=== PATIENT | female | born 1955 | race Hispanic/Latino ===

== ENCOUNTER 2020-03-14 10:53 | Emergency (ER) | payer OTHER ==
[~2020-03-14] VITALS: Ht 157.5 cm; Wt 81.6 kg
[~2020-03-14 10:53] MED LIST: BENTYL10 MG PO; LOSARTAN POTASS25 MG PO; PANTOPRAZOLE SO40 MG PO; SIMVASTATIN20 MG PO; ZOFRAN ODT4 MG SL
--- NOTE | 2020-03-14 11:56 | NUR ---
Used cultural link industrial renderer id#[id number] for triage information
[2020-03-14] MEDS ORDERED: ONDANSETRON HCL INJ 2MG/ML 2ML 2 MG/ML VIAL IV ONE (12:15)
[2020-03-14] MEDS ORDERED: MORPHINE SULFATE 2 MG/ML SYR 1ML IV ONE (12:17)
[2020-03-14] MEDS ORDERED: MORPHINE SULFATE INJ 4 MG/ML INJ 1ML ONE (12:29)
[2020-03-14] MEDS ORDERED: ONDANSETRON HCL INJ 2MG/ML 2ML 2 MG/ML VIAL ONE (12:29)
[2020-03-14] MEDS ORDERED: SODIUM CHLORIDE 0.9% 1000ML 1,000 ML ONE (14:06)
[2020-03-14] MEDS ORDERED: INSULIN REGULAR, HUMAN 100 UNIT/1 ML 3ML VIAL ONE (14:07)
--- NOTE | 2020-03-14 17:18 | Diagnostic Imaging Report ---
ADDENDUM #1 ADDENDUM: A 4 mm solid nodule in the left lower lobe, which does not require follow-up in a low risk patient. If the patient has a clinical risk factor for malignancy, an optional follow-up chest CT may be considered in 12 months. Signed by: Dr. Julienne Anderson MD on 03/14/2020 5:26 PM ORIGINAL REPORT EXAM: CT Abdomen and Pelvis without contrast INDICATION: Abdominal pain, diarrhea, body aches, nausea/vomiting. COMPARISON: Report from CT abdomen/pelvis dated 03/28/2017, although the images are not available for review at the time of this dictation. TECHNIQUE: Abdomen and pelvis were scanned utilizing a multidetector helical scanner from the lung base to the pubic symphysis without administration of IV contrast. Coronal and sagittal reformations were obtained. Routine protocol was performed. IV CONTRAST: None. ORAL CONTRAST: None. COMPLICATIONS: None RADIATION DOSE: Total DLP 1218 mGy*cm Estimated effective dose: (DLP x 0.015 x size factor) mSv CTDIvol has been reviewed. It is below the limits set by the Radiation Protocol Committee (RPC). FINDINGS: LINES and TUBES: None. LOWER THORAX: There is a 4 mm solid nodule in the left lower lobe on series 2, image 15. Mild patchy dependent opacities, likely atelectasis. Extensive multivessel coronary atherosclerosis. HEPATOBILIARY: Diffuse hepatic steatosis. No evidence of focal lesion. No biliary ductal dilation. GALLBLADDER: Cholelithiasis without evidence of cholecystitis. SPLEEN: No splenomegaly. PANCREAS: No focal masses or ductal dilatation. ADRENALS: No adrenal nodules KIDNEYS/URETERS: No evidence of hydronephrosis, solid mass, or stone. GI TRACT: The colon appears decompressed and possibly mildly thick-walled. No surrounding inflammatory changes. No evidence of wall thickening or distension. Appendix is normal. PELVIC ORGANS/BLADDER: Unremarkable. LYMPH NODES: No lymphadenopathy. VESSELS: There is moderate to severe atherosclerotic disease in the aorta and major arterial branches. PERITONEUM / RETROPERITONEUM: No free air or fluid. BONES AND SOFT TISSUES: Unremarkable. CONCLUSION: Possible mild wall thickening within the colon may reflect decompression or mild infectious or inflammatory colitis in the appropriate clinical setting. Cholelithiasis without evidence of cholecystitis. Diffuse hepatic steatosis. Extensive multivessel coronary atherosclerosis. Signed by: Dr. Julienne Anderson MD on 03/14/2020 5:15 PM
[2020-03-14 17:27] VITALS: BP 163/68
--- NOTE | 2020-03-14 17:36 | Emergency Department Note ---
History of Present Illnes History of Present Illness Chief Complaint: Abdominal Complaints History of Present Illness This is a 64 year old female Chief Complaint Comment Reports that since she got off work last night she has had body aches with abd pain and n/v/d. States that her blood sugar was 400 this morning at 0900 . Historian: Patient Onset (how long ago): day(s) (2) Location: generalized Quality: cramping Radiation: Denies non-radiation, Denies back, Denies neck, Denies extremity, Denies abdomen, Denies periumbilical, Denies flank, Denies proximal, Denies distal, Denies other Severity: moderate Onset quality: gradual Duration (how long): day(s) (2) Timing of current episode: constant Progression: waxing and waning Chronicity: new Relieving factors: none Exacerbating factors: none Associated symptoms: Reports nausea/vomiting Treatments prior to arrival: none Past Medical/Family History Physician Review I have reviewed the patient's past medical and family history. Any updates have been documented here. Past Medical History Recent Fever: No Clinical Suspicion of Infectio: No New/Unexplained Change in Ment: No Past Medical History: Hypertension, Diabetes, Hyperlipedemia Other Medical History: HIGH CHOLESTEROL Past Surgical History: Tubal Ligation Other Surgery: TUBAL Social History Smoking Cessation: Never Smoker Counseling Performed: No Alcohol Use: None Any Illegal Drug Use: No TB Exposure/Symptoms: No Physically hurt or threatened: No Family History Family history of heart diseas: Yes Other Last Tetanus: UNK Any Pre-Existing Lines (PICC,: No Is patient up to date on immun: Yes Last Flu: none Last Pneumovax: none Review of Systems Review of Systems Constitutional: Reports no symptoms EENTM: Reports no symptoms Cardiovascular: Reports no symptoms Respiratory: Reports no symptoms Gastrointestinal: Reports as per HPI Genitourinary: Reports no symptoms Musculoskeletal: Reports no symptoms Integumentary: Reports no symptoms Neurological: Reports no symptoms Psychological: Reports no symptoms Endocrine: Reports no symptoms Hematological/Lymphatic: Reports no symptoms Physical Exam Related Data Allergies: Coded Allergies: No Known Allergies (Unverified , 03/24/17) Triage Vital Signs Vital Signs Date Time Temp Pulse Resp B/P (MAP) Pulse Ox O2 Delivery O2 Flow Rate FiO2 03/14/20 11:56 99.8 98 12 168/87 98 Vital signs reviewed: Yes Physical Exam CONSTITUTIONAL Constitutional: Present well-developed, Present well-nourished HENT HENT: Present normocephalic, Present atraumatic, Present oropharynx clear /moist, Present nose normal HENT L/R: Present left ext ear normal, Present right ext ear normal EYES Eyes: Reports PERRL, Reports conjunctivae normal NECK Neck: Present ROM normal PULMONARY Pulmonary: Present effort normal, Present breath sounds normal CARDIOVASCULAR Cardiovascular: Present regular rhythm, Present heart sounds normal, Present capillary refill normal, Present normal rate GASTROINTESTINAL Abdominal: Present soft, Present bowel sounds normal, Present tender (periumbilical) GENITOURINARY Genitourinary: Present exam deferred SKIN Skin: Present warm, Present dry MUSCULOSKELETAL Musculoskeletal: Present ROM normal NEUROLOGICAL Neurological: Present alert, Present oriented x 3, Present no gross motor or sensory deficits PSYCHOLOGICAL Psychological: Present mood/affect normal, Present judgement normal Results Laboratory Lab results reviewed: Yes Imaging Imaging results reviewed: Yes Assessment & Plan Medical Decision Making MDM colitis obstruction galll stones kidney stones Reassessment Reassessment time: 17:34 Reassessment better Assessment & Plan Final Impression: (1) Abdominal pain, generalized (2) Gall stones (3) Hyperglycemia (4) Vomiting and diarrhea Depart Disposition: HOME, SELF-CARE Last Vital Signs Date Time Temp Pulse Resp B/P (MAP) Pulse Ox O2 Delivery O2 Flow Rate FiO2 03/14/20 16:32 84 20 158/70 98 03/14/20 11:56 99.8 Home Meds Reported Medications Dicyclomine Hcl (BENTYL) 10 Mg Capsule, 20 MG PO Q6H PRN for ABDOMINAL PAIN, CAP 03/28/17 Pantoprazole Sodium* (PROTONIX) 40 Mg Tablet.dr, 40 MG PO DAILY, TAB 03/28/17 Ondansetron (ZOFRAN ODT) 4 Mg Tab.rapdis, 4 MG SL Q6H PRN for NAUSEA, TAB 03/28/17 Losartan Potassium (LOSARTAN POTASSIUM) 25 Mg Tablet, 100 MG PO BID 03/28/17 Simvastatin (SIMVASTATIN) 20 Mg Tablet, 20 MG PO 2100, EA 03/28/17 Medications in the ED Ondansetron HCl 4 mg NOW ONCE IV Last administered on 03/14/20at 12:25; Admin Dose 4 MG; Start 03/14/20 at 12:15; Stop 03/14/20 at 12:20; Status DC Morphine Sulfate 2 mg NOW ONCE IV Last administered on 03/14/20at 12:25; Admin Dose 2 MG; Start 03/14/20 at 12:17; Stop 03/14/20 at 12:20; Status DC Ondansetron HCl 4 mg STK-MED ONCE .ROUTE ; Start 03/14/20 at 12:29; Stop 03/14/20 at 12:24; Status DC Morphine Sulfate 4 mg STK-MED ONCE .ROUTE ; Start 03/14/20 at 12:29; Stop 03/14/20 at 12:24; Status DC Sodium Chloride 1,000 ml @ ud STK-MED ONCE .ROUTE ; Start 03/14/20 at 14:06; Stop 03/14/20 at 14:03; Status DC Insulin Human Regular 100 unit STK-MED ONCE .ROUTE ; Start 03/14/20 at 14:07; Stop 03/14/20 at 14:03; Status DC NUVIA CURTIS MD Mar 14, 2020 17:36
--- NOTE | 2020-03-14 17:55 | NUR ---
Used cultural link commercial driver id # [id number] Harper for discharge instructions.
[2020-03-15] MEDS ORDERED: TYLENOL WITH C1 EACH PO (17:56)
[2020-03-15] MEDS ORDERED: ZOFRAN4 MG SL (17:56)
== END 2020-03-14 17:55 | disposition home or self-care (01) ==
LOC: FSED 10:53
DX: R10.84 Generalized abdominal pain (principal); R11.2 Nausea with vomiting, unspecified; R19.7 Diarrhea, unspecified; K80.80 Other cholelithiasis without obstruction; E11.65 Type 2 diabetes mellitus with hyperglycemia
CPT/HCPCS: 74176; 80048; 80076; 81003; 85025; 96374; 96375; 99284; J1817; J2270; J2405; J7030

== ENCOUNTER 2020-03-15 11:19 | Emergency (ER) | payer OTHER ==
[~2020-03-15] VITALS: Ht 152.4 cm; Wt 118.8 kg
--- NOTE | 2020-03-15 12:00 | Emergency Department Note ---
History of Present Illnes History of Present Illness Chief Complaint: COVID PUI History of Present Illness This is a 64 year old female c/o diffuse abd pain for few days, was here yesterday dx with colitis, dc/ home now coming back with same abd pain. All her family members have covid 19 per nursing reports but the patient denies it Past Medical History Hypertension, Diabetes, Hyperlipedemia Other Medical History HIGH CHOLESTEROL Past Surgical History: Tubal Ligation Other Surgery TUBAL . Arrival Mode: Car History limited by: language barrier [employer] Required: Yes Onset (how long ago): day(s) Onset quality: gradual Duration (how long): hour(s) Progression: waxing and waning Relieving factors: none Exacerbating factors: none Previous service: medications given Past Medical/Family History Physician Review I have reviewed the patient's past medical and family history. Any updates have been documented here. Past Medical History Past Medical History: Hypertension, Diabetes, Hyperlipedemia Other Medical History: HIGH CHOLESTEROL Past Surgical History: Tubal Ligation Other Surgery: TUBAL Social History Smoking Cessation: Unknown if ever smoked Alcohol Use: None Any Illegal Drug Use: No TB Exposure/Symptoms: No Family History Family history of heart diseas: No Other Last Tetanus: UNK Any Pre-Existing Lines (PICC,: No Review of Systems Review of Systems Constitutional: Reports no symptoms EENTM: Reports no symptoms Cardiovascular: Reports no symptoms Respiratory: Reports no symptoms Gastrointestinal: Reports as per HPI, Reports abdominal pain, Reports nausea Genitourinary: Reports no symptoms Musculoskeletal: Reports no symptoms Integumentary: Reports no symptoms Neurological: Reports no symptoms Psychological: Reports no symptoms Endocrine: Reports no symptoms Hematological/Lymphatic: Reports no symptoms Physical Exam Related Data Allergies: Coded Allergies: No Known Allergies (Unverified , 03/24/17) Physical Exam CONSTITUTIONAL Constitutional: Present well-developed, Present well-nourished, Present obese, Present distressed HENT HENT: Present normocephalic, Present atraumatic, Present oropharynx sonja r/moist, Present nose normal HENT L/R: Present left ext ear normal, Present right ext ear normal EYES Eyes: Reports PERRL, Reports conjunctivae normal NECK Neck: Present ROM normal PULMONARY Pulmonary: Present effort normal, Present breath sounds normal CARDIOVASCULAR Cardiovascular: Present regular rhythm, Present heart sounds normal, Present capillary refill normal, Present normal rate GASTROINTESTINAL Abdominal: Present soft, Present nontender, Present bowel sounds normal GENITOURINARY Genitourinary: Present exam deferred SKIN Skin: Present warm, Present dry MUSCULOSKELETAL Musculoskeletal: Present ROM normal NEUROLOGICAL Neurological: Present alert, Present oriented x 3, Present no gross motor or sensory deficits PSYCHOLOGICAL Psychological: Present mood/affect normal, Present judgement normal Results Laboratory Lab results reviewed: Yes Laboratory comments glucose high 208, k 3.3, UA concentrated, WBC 14 Assessment & Plan Medical Decision Making MDM colitis, covid19 Reassessment Reassessment time: 17:50 Reassessment comfortable Assessment & Plan Final Impression: (1) Colitis (2) Abdominal pain, generalized Depart Disposition: HOME, SELF-jail Meds Active Scripts Ondansetron Hcl* (ZOFRAN*) 4 Mg Tablet, 4 MG SL Q6H PRN for NAUSEA, #14 MG 0 Refills Prov:LORETA UBSH MD 03/15/20 Acetaminophen With Codeine (TYLENOL WITH CODEINE #3 TABLET) 1 Each Tablet, 300 MG PO Q4HR PRN for ABDOMINAL PAIN, #45 TAB Prov:LORETA BUSH MD 03/15/20 Reported Medications Dicyclomine Hcl (BENTYL) 10 Mg Capsule, 20 MG PO Q6H PRN for ABDOMINAL PAIN, CAP 03/28/17 Pantoprazole Sodium* (PROTONIX) 40 Mg Tablet.dr, 40 MG PO DAILY, TAB 03/28/17 Ondansetron (ZOFRAN ODT) 4 Mg Tab.rapdis, 4 MG SL Q6H PRN for NAUSEA, TAB 03/28/17 Losartan Potassium (LOSARTAN POTASSIUM) 25 Mg Tablet, 100 MG PO BID 03/28/17 Simvastatin (SIMVASTATIN) 20 Mg Tablet, 20 MG PO 2100, EA 03/28/17 Physician Attestation Provider Attestation BP looks better, pt is much more comfortable, taking PO well, can be safely d/shyam LORETA BUSH MD Mar 15, 2020 11:59
[2020-03-15] MEDS ORDERED: HYDRALAZINE HCL 20 MG/ML VIAL IV STA (12:26)
[2020-03-15] MEDS ORDERED: SODIUM CHLORIDE 0.9% 500ML 500 ML IV STA ×2 (12:26→13:55)
[2020-03-15] MEDS ORDERED: FAMOTIDINE 20 MG/2 ML VIAL IV ONE ×2 (12:30→13:32)
[2020-03-15] MEDS ORDERED: PROMETHAZINE 12.5MG/ NACL 0.9% 12.5 MG/50 ML BAG IV ONE (12:30)
[2020-03-15] MEDS ORDERED: HYDRALAZINE HCL 20 MG/ML VIAL ONE (13:31)
[2020-03-15] MEDS ORDERED: SODIUM CHLORIDE 0.9% 1000ML 1,000 ML ONE (13:32)
[2020-03-15] MEDS ORDERED: PROMETHAZINE HCL (IM) 25 MG/ML VIAL ONE (13:32)
[2020-03-15] MEDS ORDERED: CLONIDINE HCL 0.1 MG TAB ONE (15:57)
[2020-03-15] MEDS ORDERED: HYDROCODONE/APAP 5MG-325MG TAB PO ONE (16:00)
[2020-03-15] MEDS ORDERED: CLONIDINE HCL 0.2 MG TAB PO ONE (16:00)
[2020-03-15] MEDS ORDERED: TYLENOL WITH C1 EACH PO (17:56)
[2020-03-15] MEDS ORDERED: ZOFRAN4 MG SL (17:56)
== END 2020-03-15 17:49 | disposition home or self-care (01) ==
LOC: FSED 13:10
DX: K52.9 Noninfective gastroenteritis and colitis, unspecified (principal); R10.84 Generalized abdominal pain; I10 Essential (primary) hypertension; E11.9 Type 2 diabetes mellitus without complications; E78.5 Hyperlipidemia, unspecified; Z11.59 Encounter for screening for other viral diseases
CPT/HCPCS: 80053; 81003; 85025; 87635; 96374; 96375; 99283; J0360; J2550; J7030; J7040

== ENCOUNTER 2020-03-17 19:10 | Inpatient (IN) | payer OTHER ==
[~2020-03-17] VITALS: Ht 157.5 cm; Wt 118.8 kg
[~2020-03-17 19:10] MED LIST changes: +TYLENOL WITH C1 EACH PO; +ZOFRAN4 MG SL
--- NOTE | 2020-03-17 19:18 | Emergency Department Note ---
History of Present Illnes History of Present Illness Chief Complaint: vomiting and low blood sugar History of Present Illness This is a 64 year old female with history of poorly controlled hypertension, hyperlipidemia, and insulin-dependent diabetes, who presents to the ED for a third time this week complaining of vomiting, upper abdominal pain and chest pain. Patient was initially seen on 03/14/20 with body aches, abdominal pain, nausea and vomiting. She had abdominal CAT scan that showed gallstones, and possible colitis versus decompression of the bowel. Patient was discharged with Bentyl, Protonix, and Zofran. Patient presented on 03/15/20 complaining of abdominal pain and vomiting, numbness treated from the ED and released. Patient presents tonight with complaints of upper abdominal and chest pain, and vom iting. She does not patient does not appear to be vomiting, she seems to be coughing and forcing herself to spit out phlegm. She may have some dry heaving. She complains of chest tightness and has no known history of coronary artery disease. She has been an insulin-dependent diabetic for a number of years. Though she has no known history of heart disease, however the CT of her abdomen and pelvis done on 03/14/2020 did show "extensive multivessel coronary atherosclerosis." Historian: Patient (poor historian) Arrival Mode: Car History limited by: language barrier Manager Security And Safety Required: Yes (Wing Dumont RN translated) Onset (how long ago): day(s) (3) Location: epigastric, substernal Quality: dry heaving Severity: moderate Onset quality: gradual Duration (how long): day(s) (3) Timing of current episode: constant Progression: waxing and waning Chronicity: new Context: Denies recent travel, Denies trauma/injury Relieving factors: none Exacerbating factors: none Associated symptoms: Reports chest pain, Reports cough (phlegm production) Treatments prior to arrival: other (unclear what patient took ) Risk factors: diabetes Past Medical/Family History Physician Review I have reviewed the patient's past medical and family history. Any updates have been documented here. Past Medical History Recent Fever: No Clinical Suspicion of Infectio: No New/Unexplained Change in Ment: No Past Medical History: Hypertension, Diabetes (IDDM), Hyperlipedemia Other Medical History: HIGH CHOLESTEROL Past Surgical History: Tubal Ligation Other Surgery: TUBAL Social History Smoking Cessation: Never Smoker Alcohol Use: None Any Illegal Drug Use: No TB Exposure/Symptoms: No Physically hurt or threatened: No Family History Family history of heart diseas: No Other Last Tetanus: UNK Any Pre-Existing Lines (PICC,: No Is patient up to date on immun: No Last Flu: unknown Last Pneumovax: unknown Review of Systems Review of Systems Constitutional: Reports malaise; Denies chills, Denies fever EENTM: Reports no symptoms Cardiovascular: Reports chest pain (tightness ); Denies edema Respiratory: Denies cough, Denies dyspnea, Denies dyspnea on exertion Gastrointestinal: Reports abdominal pain (mild, upper abdominal pain), Reports constipation (no BM x 3 days), Reports nausea, Reports vomiting (mostly clearing throat and spitting out phlegm); Denies diarrhea Genitourinary: Denies dysuria, Denies frequency Musculoskeletal: Denies muscle pain, Denies neck pain Integumentary: Reports no symptoms Neurological: Reports no symptoms Psychological: Reports no symptoms Review of other systems: All other systems negative Physical Exam Related Data Allergies: Coded Allergies: No Known Allergies (Unverified , 03/24/17) Vital signs reviewed: Yes Physical Exam CONSTITUTIONAL Constitutional: Present well-developed, Present well-nourished, Present obese, Present other (moaning and groaning throughout exam) HENT HENT: Present normocephalic, Present atraumatic, Present oropharynx clear/moist, Present nose normal HENT L/R: Present left ext ear normal, Present right ext ear normal EYES Eyes: Reports PERRL, Reports conjunctivae normal NECK Neck: Present ROM normal PULMONARY Pulmonary: Present effort normal, Present breath sounds normal; Absent chest tenderness CARDIOVASCULAR Cardiovascular: Present regular rhythm, Present heart sounds normal, Present capillary refill normal, Present normal rate GASTROINTESTINAL Abdominal: Present soft (very soft), Present nontender, Present bowel sounds normal; Absent guarding, Absent rebound GENITOURINARY Genitourinary: Present exam deferred SKIN Skin: Present warm, Present dry; Absent pale, Absent rash MUSCULOSKELETAL Musculoskeletal: Present ROM normal NEUROLOGICAL Neurological: Present alert, Present oriented x 3, Present no gross motor or sensory deficits PSYCHOLOGICAL Psychological: Present mood/affect normal, Present judgement normal Results Laboratory Laboratory [place] - nl except for glucose = 282, Cl = 94 Liver - nl except for ALT = 68, AST = 77 Cardiacs - CKMB = 4.6, jeovany - nl, trop = 0.31; 03/18/2020 - Trop #2 = 0.14; Lab results reviewed: Yes Imaging Imaging results reviewed: Yes Impressions [place] [id number] Patient Name: JOVON CHERRY MR #: [id number] : 1955 Age/Sex: 64/F Req #: [id number] Adm Physician: Ordered by: DARRIAN LIANG MD Report #: [id number] Location: [facility] Room/Bed: Procedure: [id number] HOPD/CXR 2 VIEW - HOPD Exam Date: 03/17/20 Exam Time: 2043 REPORT STATUS: Signed EXAMINATION: CXR 2 VIEW - HOPD INDICATION: ^cough, vomiting ^[id number] ^2043 COMPARISON: None FINDINGS: TUBES and LINES: None. LUNGS: Lungs are well inflated. Lungs are clear. There is no evidence of pneumonia or pulmonary edema. PLEURA: No pleural effusion or pneumothorax. HEART AND MEDIASTINUM: Normal heart size. Slight prominence of the right upper mediastinum likely represents vascular tortuosity. BONES AND SOFT TISSUES: No acute osseous lesion. Soft tissues are unremarkable. UPPER ABDOMEN: No free air under the diaphragm. IMPRESSION: No acute thoracic radiographic abnormality. Signed by: Jasmyne Campos MD on 03/17/2020 9:24 PM Dictated By: JASMYNE CAMPOS MD 23 Transcribed By: NELLY on 03/17/202123 COPY TO: DARRIAN LIANG MD~ Diagnostics Tests Diagnostic test(s) reviewed: Yes Procedures 12 Lead ECG Interpretation ECG Interpretation : ECG: ECG 1 Manager Security And Safety: Interpreted by ED physician Date: Mar 17, 2020 Time: 21:20 Prior ECG tracings: reviewed Rhythm: sinus rhythm Rate: normal BPM: 98 QRS axis: normal ST segments normal: No (non-specific changes) Assessment & Plan Medical Decision Making MDM consider ACS, gastritis, acute pancreatitis, SBO, DKA Reassessment Reassessment time: 23:15 Reassessment - Pt denies cp, with mild upper abdominal discomfort. Explained to patient that she is being admitted to the hospital for further evaluation of her heart, since her troponin was slightly elevated and to possibly have GI evaluate her. Pt voiced understanding of the plan, and is agreeable to admission. 23:30 - case discussed with Dr. Shafer, who was agreeable to admitting. Requested consult from Cardiology senior operations analyst. 23:58 - case discussed with Dr. Ibis Anne, who will see patient in consultation. Patient received aspirin 325 mg by mouth in the ED, as well as Nitropaste 1 inch to the chest wall. She is currently chest pain-free. 02:00 am - bed initially assigned at [facility], but then retracted, due to risk of exposing patient to COVID 19. Per the boiler house mechanic, there should be beds available after 7 AM his morning, when the day shift arrives. Patient is stable for hold in the ED, pending room availability. 04:00 am - pt is resting comfortably, in NAD. 05:45 am - second Troponin is trending downward. Pt continues to rest comfortably. 07:00 am - pt remains stable, await bed assignment at [facility]. Patient checked out to Dr. Orozco, who is coming on shift this morning. 07:20 - bed assigned at [facility] and EMS is here to transfer patient Assessment & Plan Final Impression: (1) Chest pain (2) Elevated troponin level (3) Uncontrolled hypertension (4) Nausea & vomiting (5) IDDM (insulin dependent diabetes mellitus) Depart Disposition: ADMITTED ([facility] obs tele) Home Meds Active Scripts Ondansetron Hcl* (ZOFRAN*) 4 Mg Tablet, 4 MG SL Q6H PRN for NAUSEA, #14 MG 0 Refills Prov:LORETA BUSH MD 03/15/20 Acetaminophen With Codeine (TYLENOL WITH CODEINE #3 TABLET) 1 Each Tablet, 300 MG PO Q4HR PRN for ABDOMINAL PAIN, #45 TAB Prov:LORETA BUSH MD 03/15/20 Reported Medications Dicyclomine Hcl (BENTYL) 10 Mg Capsule, 20 MG PO Q6H PRN for ABDOMINAL PAIN, CAP 03/28/17 Pantoprazole Sodium* (PROTONIX) 40 Mg Tablet.dr, 40 MG PO DAILY, TAB 03/28/17 Ondansetron (ZOFRAN ODT) 4 Mg Tab.rapdis, 4 MG SL Q6H PRN for NAUSEA, TAB 03/28/17 Losartan Potassium (LOSARTAN POTASSIUM) 25 Mg Tablet, 100 MG PO BID 03/28/17 Simvastatin (SIMVASTATIN) 20 Mg Tablet, 20 MG PO 2100, EA 03/28/17 DARRIAN LIANG MD Mar 17, 2020 19:18
[2020-03-17] MEDS ORDERED: ONDANSETRON HCL INJ 2MG/ML 2ML 2 MG/ML VIAL IV STA (19:48)
[2020-03-17] MEDS ORDERED: PROMETHAZINE HCL (IM) 25 MG/ML VIAL ONE (19:55)
[2020-03-17] MEDS ORDERED: SODIUM CHLORIDE 0.9% 1000ML 1,000 ML ONE (19:55)
[2020-03-17] MEDS ORDERED: ONDANSETRON HCL INJ 2MG/ML 2ML 2 MG/ML VIAL ONE (19:55)
[2020-03-17] MEDS ORDERED: SODIUM CHLORIDE 0.9% 1000ML 1,000 ML IV SCH (20:00)
[2020-03-17] MEDS ORDERED: PROMETHAZINE 12.5MG/ NACL 0.9% 12.5 MG/50 ML BAG IV ONE ×2 (20:00→20:30)
--- NOTE | 2020-03-17 21:27 | Diagnostic Imaging Report ---
EXAMINATION: CXR 2 VIEW - HOPD INDICATION: ^cough, vomiting ^20200317 ^2043 COMPARISON: None FINDINGS: TUBES and LINES: None. LUNGS: Lungs are well inflated. Lungs are clear. There is no evidence of pneumonia or pulmonary edema. PLEURA: No pleural effusion or pneumothorax. HEART AND MEDIASTINUM: Normal heart size. Slight prominence of the right upper mediastinum likely represents vascular tortuosity. BONES AND SOFT TISSUES: No acute osseous lesion. Soft tissues are unremarkable. UPPER ABDOMEN: No free air under the diaphragm. IMPRESSION: No acute thoracic radiographic abnormality. Signed by: Washington Hylton MD on 03/17/2020 9:24 PM
[2020-03-17] MEDS ORDERED: CLONIDINE HCL 0.2 MG TAB PO ONE (21:30)
[2020-03-17] MEDS ORDERED: NITROGLYCERIN 2% OINT 1 GM PKT TOP ONE (21:30)
[2020-03-17] MEDS ORDERED: ASPIRIN 325 MG TAB PO ONE (21:30)
[2020-03-17] MEDS ORDERED: CLONIDINE HCL 0.1 MG TAB ONE (21:32)
[2020-03-17] MEDS ORDERED: NITROGLYCERIN 2% OINT 1 GM PKT ONE (21:32)
[2020-03-17] MEDS ORDERED: MORPHINE SULFATE INJ 4 MG/ML INJ 1ML ONE (22:13)
[2020-03-17] MEDS ORDERED: METOCLOPRAMIDE HCL 10 MG/2ML VIAL ONE (22:13)
[2020-03-17] MEDS ORDERED: SODIUM CHLORIDE 0.9% 250ML 250 ML ONE (22:14)
[2020-03-17] MEDS ORDERED: ASPIRIN 325 MG TAB ONE (22:19)
[2020-03-18] MEDS ORDERED: ONDANSETRON HCL INJ 2MG/ML 2ML 2 MG/ML VIAL IV PRN (00:15)
[2020-03-18] MEDS ORDERED: SODIUM CHLORIDE FLUSH 10 ML SYR INJ PRN (00:15)
[2020-03-18] MEDS: ASPIRIN 81 MG CHEW TAB PO ONE ×2 (00:30→05:56)
[2020-03-18] MEDS ORDERED: MORPHINE SULFATE 2 MG/ML SYR 1ML IV STA (01:05)
[2020-03-18] MEDS ORDERED: METOCLOPRAMIDE HCL 10 MG/2ML VIAL IV ONE (01:15)
--- NOTE | 2020-03-18 08:50 | NUR ---
ADMITTED PATIENT FROM [facility] TO ROOM 110. SHE IS IN STABLE CONDITION. NO COMPLAINTS OF PAIN. ORIENTED TO ROOM AND POLICIES. CALL LIGHT WITHIN REACH. BED IN THE LOWEST POSITION.
[2020-03-18] MEDS: FAMOTIDINE 20 MG/2 ML VIAL IV SCH (09:06)
--- NOTE | 2020-03-18 09:23 | History and Physical ---
HISTORY OF PRESENT ILLNESS: Ms. Rhodes is a 64-year-old female with history of diabetes, hypertension, and hyperlipidemia, who came like 3 times to the emergency room, in one of the previous visits to the emergency room, she was found to have gallstones. At this time, she came to the emergency room complaining of chest pain and vomiting for 3 days. PAST MEDICAL HISTORY: She has diabetes, hypertension, and hyperlipidemia. SOCIAL HISTORY: She does not smoke and she does not drink. ALLERGIES: NO KNOWN DRUG ALLERGIES. PAST SURGICAL HISTORY: She had a tubal ligation. PHYSICAL EXAMINATION: GENERAL: Today, she is awake and alert. She is feeling better. VITAL SIGNS: Temperature is 97.9, blood pressure is 108/55. HEART: Regular rate. LUNGS: Clear to auscultation. ABDOMEN: Soft. LABORATORY DATA: On the blood work, glucose 312. COVID is pending. The blood work was done in the standing ER. Creatinine was 0.6, potassium 3.9. Hemoglobin 13.1, hematocrit 39.6, white blood cells 8.9. Troponin came back 0.31 in the first set of cardiac enzymes. Chest x-ray showed no acute findings. ASSESSMENT: 1. Chest pain. 2. Elevated troponin. 3. Diabetes type 2 with hyperglycemia. 4. Hypertension. 5. Hyperlipidemia. 6. History of cholelithiasis. PLAN: At the present time is to get a Cardiology consult with Dr. Anne. EKG, echocardiogram, cardiac enzymes x3, ADA diet, sliding scale with insulin, restart the home medications. Continue famotidine and Zofran for nausea and vomiting. Continue other home medications. All this was discussed in extension with the patient. All questions were answered to satisfaction. MD MAHIN Manuel/MODL /[id number]
[2020-03-18] MEDS ORDERED: IRBESARTAN150 MG PO (09:52)
[2020-03-18] MEDS ORDERED: FERROUS SULFAT325 MG PO (09:52)
[2020-03-18] MEDS ORDERED: CLONIDINE HCL0.2 MG PO (09:52)
[2020-03-18] MEDS ORDERED: SIMVASTATIN20 MG PO (09:52)
[2020-03-18] MEDS ORDERED: GLIMEPIRIDE4 MG PO (09:52)
[2020-03-18] MEDS ORDERED: HYDROCHLOROTHIA25 MG PO (09:52)
[2020-03-18] MEDS ORDERED: LEVEMIR FL100 UNIT/1 SC (09:56)
[2020-03-18] MEDS ORDERED: MIDAZOLAM HCL 2 MG/2 ML VIAL ONE (10:20)
[2020-03-18] MEDS ORDERED: FENTANYL CITRATE/PF 100MCG/2 ML INJ ONE (10:20)
[2020-03-18] MEDS ORDERED: HEPARIN SOD/SOD CHLORIDE 2,000 ML ONE (10:21)
[2020-03-18] MEDS ORDERED: IOPAMIDOL 370 MG/ML 200 ML INFUS..BTL INJ ONE (10:21)
[2020-03-18] MEDS ORDERED: NITROGLYCERIN/D5W 200 MCG/ML 250 ML ONE (10:21)
[2020-03-18] MEDS ORDERED: SODIUM CHLORIDE 0.9% 1000ML 1,000 ML ONE (10:21)
[2020-03-18] MEDS ORDERED: LIDOCAINE HCL 2% LOCAL 20 ML VIAL ONE (10:21)
[2020-03-18 10:58] LABS: CREATINE KINASE MB 2.9 ng/mL (0-5.0)
--- NOTE | 2020-03-18 11:00 | NUR ---
1100a assist floor staff with consent and prep with Md Dr Heidy Chapin and bs, nurse and language line x2 identifier with bedside nurse and language line srtaff. Report to Hebert Shepard and Isidro Rn pt status
[2020-03-18] MEDS: SODIUM CHLORIDE 0.9% 1000ML 1,000 ML IV SCH ×2 (11:11→21:04)
--- NOTE | 2020-03-18 11:50 | NUR ---
1150am ERROR WRONG CHART pls disregard ds/rn
--- NOTE | 2020-03-18 11:50 | NUR ---
1150a bedside report received from Cadence SCHULTE. Alert oriented and appropriate, PERRLA, respirations even and unlabored to room air. Pulses x4 extremities equal and strong. Pedal pulses PT/DPx4 and marked. Cap fill brisk < 3 sec. Rt Radial approach Normal neuro vascular function. TR band down at 1230p Skin warm and dry integrity appears D/I. IV 20g rt forearm, presents healthy w/o s/s of infiltration or complaint. Abdomen soft and supple. pt offered toileting, denies need to urinate or defecate. No personal affects with patient. No Family at bedside. Pt verbalizes understanding of POC. c/o Tr band site pain recieved versed iv/Versed/fentynal. narco offered refusing a this time due to nausea asking for mor iv narcotic. Will check for anti nausea med order to be given adjunctivelyMonitor NSR no fix,Medical RX and transfer to floor care rm 104 s/p TR band removed. Cooper here to talk with patient no family at bedside. Pt drifts quicly to sleep. loreto Addendum: 03/18/20 at 1205 by Candy Sanders RN 1150error entry delete note loreto
--- NOTE | 2020-03-18 12:53 | NUR ---
PATIENT BACK TO UNIT FROM PRODUCTION STAFF WORKER
[2020-03-18 13:32] VITALS: BP 160/61
[2020-03-18] MEDS: METOPROLOL TARTRATE 25 MG TAB PO SCH (16:36)
[2020-03-18 17:24] VITALS: BP 166/62
--- NOTE | 2020-03-18 17:29 | NUR ---
NOTIFIED SENIOR SOFTWARE QUALITY ENGINEER THAT PATIENT NEEDS TO BE TRANSFERRED TO [facility] IN THE [facility].
[2020-03-18 18:12] LABS: CREATINE KINASE MB 2.5 ng/mL (0-5.0)
--- NOTE | 2020-03-18 18:15 | Consultation ---
DATE OF CONSULTATION: 03/18/2020 CHIEF COMPLAINT: Chest pain. HISTORY OF PRESENT ILLNESS: This is a 64-year-old female with history of hypertension, hyperlipidemia, diabetes. The patient presents to outside ER with complaints of chest pain, abdominal pain, nausea, vomiting for several days, was noted with troponin elevated at 0.3, was transferred to [facility] ER for further evaluation. Cardiology was consulted. The patient is seen in room, reports for the past several days has been having off and on chest pain, pressure, tightness, radiating to left arm with shortness of breath and nausea and vomiting. Went to the ER two days ago in which she was treated medically and discharged and subsequently, the patient continued with chest pain, came yesterday again with same symptoms. This time was noted with elevated troponin. I discussed at length with regarding elevated troponin and recommend left heart catheterization. Risks and benefits discussed. Questions answered. The patient wished to proceed with left heart catheterization this a.m. PAST MEDICAL HISTORY: Hypertension, hyperlipidemia, diabetes. SURGICAL HISTORY: Tubal ligation. SOCIAL HISTORY: She is . She denies any alcohol or tobacco use. FAMILY HISTORY: She reports mother at age of 87 with history of heart failure. Father at the age of 88, history of diabetes. HOME MEDICATIONS: Include: 1. Clonidine 0.2 p.o. t.i.d. 2. Ferrous sulfate 325 mg daily. 3. Glimepiride 4 mg b.i.d. 4. Hydrochlorothiazide 12.5 mg daily. 5. Levemir 80 units subcu q.12. 6. Irbesartan 300 mg daily. 7. Simvastatin 20 mg daily. ALLERGIES: NO KNOWN ALLERGIES. REVIEW OF SYSTEMS: Denies any recent weight changes, fatigue, weakness, or night sweats. SKIN: No rashes or bruises. HEENT: Positive for nausea and vomiting. Denies any sore throat, swollen neck, hoarseness, stiff neck. CARDIAC: Positive for chest pain as above. Denies any palpitations. Positive for dyspnea on exertion. No orthopnea, PND, or lower extremity reported. RESPIRATORY: Positive for shortness of breath. No wheezing, coughing, or hemoptysis. GI: Reports good appetite, however, positive for nausea and vomiting. Denies any melena or tarry bloody stools. URINARY: Positive for frequency or urgency. Denies any dysuria or hematuria. VASCULAR: Denies any lower extremity edema or claudication. MUSCULOSKELETAL: Denies any muscle weakness. Positive for joint pains, back pain. NEUROLOGIC: Denies any numbness, tingling, tremors, paralysis, blackout seizures. HEMATOLOGY: Denies any anemia or bruising. ENDOCRINE: Denies heat or cold intolerance, polyuria, polydipsia, or polyphagia. PHYSICAL EXAMINATION: VITAL SIGNS: Temperature 97.9, pulse 86, respiratory rate 18, blood pressure 137/54, pulse ox 96 on room air. GENERAL: The patient is awake, alert, oriented, reliable historian. SKIN: No rashes or bruises noted. HEENT: Normocephalic. Pupils are equal and reactive. Extraocular movements intact. Trachea midline. NECK: No JVD. No carotid bruit noted. HEART: Regular rate and rhythm. PMI about 5th intercostal space. ABDOMEN: Soft, nontender, and nondistended. No organomegaly. MUSCULOSKELETAL: Good muscle strength throughout. EXTREMITIES: No lower extremity edema noted. VASCULAR: +2 radial pulses bilaterally. +1 DP/PT pulses bilaterally. NEUROLOGIC: Cranial nerves 2 through 12 seem intact. LABORATORY DATA: Sodium 143, potassium 3.3, chloride 97, bicarb 29, BUN 28, creatinine 0.7, glucose 208. White count 14, hemoglobin 13, hematocrit 40, platelets 248. Troponin 0.3. EKG showing normal sinus rhythm with nonspecific ST changes. The patient had CT of the abdomen on March 14 showing gallstones and coronary atherosclerosis. IMPRESSION: 1. Non ST-segment elevation myocardial infarction. 2. Hypertension. 3. Hyperlipidemia. 4. Diabetes. PLAN: The patient presents with a several-day history of chest pain with very typical symptoms, pressure, tightness, radiating to the left arm with elevated troponin. Left heart catheterization discussed at length with the patient including risks and benefits. Questions answered. The patient wishes to proceed with left heart catheterization this a.m. 1. Aspirin, beta-adelfo, statin. 2. We will check a lipid panel. 3. IV fluids. Keep the patient n.p.o. 4. Further recommendations post left heart catheterization. Thank you very much for this consult. Agree with note NSTEMI for cath/ PCI Dictated by Taiwo Barriga, HYDROGEOLOGIST Franny Anne MD DC/KRIS /[id number]
--- NOTE | 2020-03-18 19:23 | NUR ---
BEDSIDE SHIFT REPORT GIVEN TO ONCOMING NURSE. PATIENT IS RESTING IN BED. NO ACUTE DISTRESS NOTED AT THIS TIME. CALL LIGHT WITHIN REACH. BED IN THE LOWEST POSITION.
[2020-03-18 20:00] VITALS: BP 179/64
--- NOTE | 2020-03-18 20:30 | Operative Report ---
DATE OF PROCEDURE: 03/18/2020 SURGEON: Franny Anne MD TITLE OF THE PROCEDURE: Left cardiac catheterization. INDICATION: ACS with troponin leak. TECHNICAL DETAILS: After the usual sterile preparation and draping procedure, intravenous Versed and fentanyl given for sedation, local Xylocaine for local anesthesia. 4-Zambian sheath established in place, Cinda left 4 and 3DRC catheters to engage the coronaries, pigtail for hemodynamic measurement and left ventriculogram. At the end of the procedure, sheath was removed. Hemostasis achieved manually. No complication. No blood loss. RESULTS: A. Coronary angiogram: 1. Left main: Heavily calcified 20% ostial disease, 30% to 40% mid disease, greater than 90% distal left main disease. 2. LAD: Proximally 80% calcified. 3. Circumflex: Small obtuse marginal with 80% stenosis. 4. Right coronary artery: Several plaques at 30% to 40%. B. Hemodynamic: Aorta pressure 130/80. LV pressure 130/20. C. Left ventriculogram in the right anterior oblique view showed left ventricular ejection fraction of 70%. IMPRESSION: Very calcified diseased left main, proximal left anterior descending, and obtuse marginal. Preserved left ventricular systolic function. RECOMMENDATION: Cardiovascular Surgery consult for consideration of coronary artery bypass surgery. COMPLICATIONS: None. BLOOD LOSS: None. Franny Anne MD MOJ/MODL /[id number]
[2020-03-18] MEDS: ATORVASTATIN 20 MG TAB PO SCH (21:04)
--- NOTE | 2020-03-18 22:16 | Consultation ---
DATE OF CONSULTATION: 03/18/2020 REASON FOR CONSULTATION: Coronary artery disease, evaluation for coronary artery bypass surgery; requested by Dr. Regan Anne. WOMEN DESIGNER: Dr. Monique Parrish. HISTORY OF PRESENT ILLNESS: I saw and evaluated the patient on March 18, 2020. She is a 64-year-old diabetic lady with a history of hypertension, hyperlipidemia, who has been having recurrent left chest and arm pain. She came to the emergency room with some GI discomfort and the arm pain. On this occasion, she was having chest pain, GI distress and some vomiting. Initial troponin is elevated at 0.65. CK-MB is 2.90. She had a cardiac catheterization today, which shows a left main coronary artery stenosis and preserved ejection fraction. Evaluation for surgery has been requested. There is no clear history of stroke, MO, claudication or previous hospitalizations for chest pain. She has been hospitalized on several occasions at [facility] with lightheadedness, which has been attributed to hypoglycemia. The patient does not smoke or drink. Her mother had a myocardial infarction. PAST MEDICAL HISTORY: Positive for insulin-dependent diabetes, hypertension, and hyperlipidemia. SOCIAL HISTORY: Negative for smoking or alcohol. , with several children. MEDICATIONS: 1. Lopressor. 2. Aspirin. 3. Atorvastatin. ALLERGIES: NONE KNOWN. FAMILY HISTORY: Positive for coronary artery disease in her mother with a heart attack. Otherwise negative. REVIEW OF SYSTEMS: GENERAL: Negative for fatigue and malaise. NEUROLOGIC: Negative for focal weakness in extremities or dysarthria. HEENT: Negative for decreased vision or decreased hearing. CARDIAC: Positive for chest pain as above. Negative for palpitation. PULMONARY: Negative for shortness of breath or wheezing. GI: No constipation or diarrhea. : Negative for hematuria or dysuria. ENDOCRINE: Negative polyuria or polydipsia. VASCULAR: Negative for claudication. SKIN: Negative for rashes or itching. HEMATOLOGIC: Negative for clotting or bleeding. INFECTIOUS: Negative for fevers or sweating. PSYCHIATRIC: Negative for depression or anxiety. PHYSICAL EXAMINATION: GENERAL: Somewhat overweight lady, lying flat in bed, in no apparent distress. She speaks primarily Kosovan. One of the nurses interpreted. HEENT: Extraocular motion full. Mucous membranes moist. VITAL SIGNS: Blood pressure 140/70, pulse 80 and regular, respirations 16 and unlabored. NECK: Supple. Nontender. No JVD. CARDIAC: Shows a regular rate and rhythm. There is a normal S1 and S2. There is no S3 or S4. LUNGS: Clear to auscultation and percussion bilaterally. ABDOMEN: Globoid benign. Good bowel sounds. No hepatosplenomegaly. BACK: No CVA tenderness. No muscular spasm. EXTREMITIES: No cyanosis, clubbing, or edema. VASCULAR: Carotids 2+/2+ bilaterally. No carotid bruits. Radials, brachials, femorals 2+/2+ bilaterally. Ulnar is 1+/2+ bilaterally. Dorsalis pedis pulses 2+/2+ bilaterally. SKIN: No rashes or nonhealing ulcers. MUSCULOSKELETAL: Full range of motion at all joints. No joint swelling. NEUROLOGIC: Cranial nerves II through XII intact. Sensation intact to light touch and pinprick bilaterally. Strength 5/5 in all extremities. LYMPHATIC: Negative for cervical, clavicular, femoral adenopathy. LABORATORY DATA: CK-MB 2.90, troponin I 0.65. Other laboratories are pending. Chest x-ray shows no thoracic abnormalities. IMPRESSION: Severe coronary artery disease. I agree with the need for surgical evaluation and grafting. We will arrange for transfer for surgical evaluation and surgery. I described the operation and its risks to the patient as well as her son. I talked with her son, who speaks fluent Azerbaijani and Kosovan by phone. I told him that the risks of surgery would include , bleeding, infection, heart attack, stroke, pneumonia, prolonged ICU stay, mechanical ventilation, tracheostomy, amputation, etc. They each stated that they understood, had no further questions, and wanted to proceed. MD ELIEL Hylton/KRIS /[id number]
[2020-03-18 22:35] VITALS: BP 179/64
[2020-03-19] VITALS (7 sets, daily range): BP systolic 145–203; BP diastolic 62–97
[2020-03-19 05:40] LABS: HEMATOCRIT 39.5 % (34.2-44.1); HEMOGLOBIN 12.8 g/dL (12.0-16.0); MEAN CORPUSCULAR HEMOGLOBIN 29.5 pg (28-32); MEAN CORPUSCULAR HGB CONC 32.4 g/dL (31-35); PLATELET COUNT 260 x10e3/uL (140-360); RED BLOOD COUNT 4.34 x10e6/uL (3.6-5.1); RED CELL DISTRIBUTION WIDTH 13.1 % (11.7-14.4)
[2020-03-19] MEDS ORDERED: CLONIDINE HCL 0.1 MG TAB PO PRN (06:00)
[2020-03-19] MEDS ORDERED: CLONIDINE HCL 0.1 MG TAB PO SCH (06:15)
[2020-03-19 06:35] LABS: ALANINE AMINOTRANSFERASE 92 IU/L (0-55); ALBUMIN 3.3 g/dL (3.5-5.0); ALBUMIN/GLOBULIN RATIO 0.9 (0.8-2.0); ALKALINE PHOSPHATASE 61 IU/L (40-150); ANION GAP 12.9 mmol/L (8-16); BLOOD UREA NITROGEN 7 mg/dL (7-26); BUN/CREATININE RATIO 9 (6-25); CALCIUM 8.5 mg/dL (8.4-10.2); CARBON DIOXIDE 26 mmol/L (22-29); CHLORIDE 106 mmol/L (98-107); CHOL/HDL RATIO 3.7 (3.0-3.6); CHOLESTEROL 130 MD/DL (0-199); CREATININE, SERUM 0.74 mg/dL (0.57-1.11); EST GLOMERULAR FILTRATION RATE > 60 ML/MIN (60-); GLUCOSE 142 mg/dL (74-118); HDL CHOLESTEROL 35 MG/DL (40-60); LDL CHOLESTEROL 79 MG/DL (60-130); POTASSIUM 3.9 mmol/L (3.5-5.1); SODIUM 141 mmol/L (136-145); TRIGLYCERIDES 80 MG/DL (0-149)
--- NOTE | 2020-03-19 07:00 | NUR ---
BEDSIDE SHIFT REPORT FROM COMPUTING ARCHITECT RN. PT DENIES NEEDS AT THIS TIME.
[2020-03-19] MEDS: FAMOTIDINE 20 MG/2 ML VIAL IV SCH (08:59)
[2020-03-19] MEDS: METOPROLOL TARTRATE 25 MG TAB PO SCH ×2 (08:59→16:42)
[2020-03-19] MEDS ORDERED: ASPIRIN 81 MG ENTERIC COATED PO SCH (09:00)
[2020-03-19 09:43] LABS: EOSINOPHILS % (MANUAL) 2 % (0-7); LYMPHOCYTES % (MANUAL) 20 % (19-48); METAMYELOCYTES % (MANUAL) 1 % (0-0); MONOCYTES % (MANUAL) 13 % (3.4-9.0); NEUTROPHILS % (MANUAL) 60 % (40-74); RBC MORPHOLOGY COMMENT NORMAL
[2020-03-19 09:44] LABS: PLATELET ESTIMATE ADEQUATE; PLATELET MORPHOLOGY COMMENT NORMAL
--- NOTE | 2020-03-19 10:04 | NUR ---
ORDERS TO TRANSFER DOWNTOWN TO [facility] FOR CABG CHOICE LETTER SIGNED AND ON CHART INITIATED TRANSFER TO [facility] PH: [phone] FAX: [phone] SPOKE WITH SHELL FAXED FACE SHEET AND H+P PACKET MADE AND MOT INITIATED AND IN PACKET AWAIT BED
[2020-03-19] MEDS: SODIUM CHLORIDE 0.9% 1000ML 1,000 ML IV SCH (11:16)
[2020-03-19] MEDS: ATORVASTATIN 20 MG TAB PO SCH (20:29)
--- NOTE | 2020-03-22 06:09 | Discharge Summary ---
HISTORY: Ms. Rhodes is a 64-year-old female with history of diabetes, hypertension, hyperlipidemia, came to the emergency room complaining of chest pain and vomiting for 3 days. She ruled in for a non-STEMI. She went for an angiogram yesterday, that shows 80% LAD. So, the plan for her is bypass surgery. She was evaluated by Dr. Carter. She be transferred to the [facility] for the surgery. PHYSICAL EXAMINATION: GENERAL: Today, she is awake and alert. She is feeling okay. No chest pain at the present time. VITAL SIGNS: Temperature is 98.9, blood pressure 183/68. HEART: Regular rate. LUNGS: Clear to auscultation. ABDOMEN: Soft. LABORATORY DATA: On the blood work; white count is 9.76, hemoglobin is 12.8. Potassium 3.9, creatinine 0.74. COVID was nondetected. DISCHARGE DIAGNOSES: 1. Severe coronary artery disease. 2. [id number]-KE-[id number] myocardial infarction. 3. Diabetes type 2. 4. Hypertension. 5. Hyperlipidemia. 6. Cholelithiasis. PLAN: At the present time, continue medical management with aspirin, beta-adelfo, and statin. The patient is going to be transferred to the [facility] for coronary artery bypass surgery. All this was discussed with the patient and all questions were answered to satisfaction. MD MAHIN Manuel/KRIS /[id number]
== END 2020-03-19 22:00 | disposition short-term general hospital (02) | DRG 281 ==
LOC: FSED 20:00 → ERHOLD 03-18 00:23 → MED/SURG 03-18 07:56
PROVIDERS: ADMIT Internal Medicine; ATTEND Internal Medicine
PROC: 4A023N7 Measurement of Cardiac Sampling and Pressure, Left Heart, Percutaneous Approach (ICD-10-PCS; principal; 2020-03-18)
PROC: B2111ZZ Fluoroscopy of Multiple Coronary Arteries using Low Osmolar Contrast (ICD-10-PCS; 2020-03-18)
PROC: B2151ZZ Fluoroscopy of Left Heart using Low Osmolar Contrast (ICD-10-PCS; 2020-03-18)
DX: I21.4 Non-ST elevation (NSTEMI) myocardial infarction (principal); Z68.42 Body mass index [BMI] 45.0-49.9, adult; I10 Essential (primary) hypertension; E11.9 Type 2 diabetes mellitus without complications; E78.5 Hyperlipidemia, unspecified; Z79.4 Long term (current) use of insulin; E78.00 Pure hypercholesterolemia, unspecified; Z82.49 Family history of ischemic heart disease and other diseases of the circulatory system; Z83.3 Family history of diabetes mellitus; Z79.82 Long term (current) use of aspirin; I25.10 Atherosclerotic heart disease of native coronary artery without angina pectoris; K80.20 Calculus of gallbladder without cholecystitis without obstruction; Z11.59 Encounter for screening for other viral diseases; E66.01 Morbid (severe) obesity due to excess calories
CPT/HCPCS: 36415; 71046; 80053; 80061; 82550; 82553; 82948; 83735; 84443; 84484; 85007; 85027; 93005; 93306; 93458; 93880; 99152; 99284; C1766; C1887; J2001; J2250; J2270; J2405; J2550; J2765; J3010; J7030; J7050; Q9967; U0002

== ENCOUNTER 2020-04-06 11:56 | Inpatient (IN) | payer OTHER ==
[~2020-04-06] VITALS: Ht 157.5 cm; Wt 78.6 kg
[~2020-04-06 11:56] MED LIST changes: +CLONIDINE HCL0.2 MG PO; +FERROUS SULFAT325 MG PO; +GLIMEPIRIDE4 MG PO; +HYDROCHLOROTHIA25 MG PO; +IRBESARTAN150 MG PO; +LEVEMIR FL100 UNIT/1 SC
[2020-04-06] MEDS ORDERED: ONDANSETRON HCL INJ 2MG/ML 2ML 2 MG/ML VIAL IV STA ×2 (12:59→14:28)
[2020-04-06] MEDS ORDERED: SODIUM CHLORIDE 0.9% 1000ML 1,000 ML IV STA (12:59)
[2020-04-06] MEDS ORDERED: SODIUM CHLORIDE 0.9% 1000ML 500 ML IV STA (12:59)
[2020-04-06] MEDS ORDERED: FAMOTIDINE 20 MG/2 ML VIAL IV STA (12:59)
[2020-04-06] MEDS ORDERED: COREG3.125 MG (13:17)
[2020-04-06] MEDS ORDERED: FUROSEMIDE40 MG PO (13:17)
--- NOTE | 2020-04-06 13:21 | Emergency Department Note ---
History of Present Illnes History of Present Illness Chief Complaint: General Medicine Complaints History of Present Illness This is a 64 year old female . Historian: Family Member Arrival Mode: Car Additional Treatment SLEEVE SEWER: n/a History limited by: language barrier Onset (how long ago): day(s) (1) Severity: moderate Onset quality: gradual Duration (how long): hour(s) (6) Timing of current episode: constant Progression: worsening Chronicity: new Context: Reports recent surgery (CABG at [facility]) Relieving factors: none Exacerbating factors: none Associated symptoms: Reports malaise, Reports weakness Treatments prior to arrival: none Past Medical/Family History Physician Review I have reviewed the patient's past medical and family history. Any updates have been documented here. Past Medical History Recent Fever: No Clinical Suspicion of Infectio: No New/Unexplained Change in Ment: No Past Medical History: Hypertension, Diabetes, Hyperlipedemia Other Medical History: HIGH CHOLESTEROL Past Surgical History: Tubal Ligation Other Surgery: TUBAL Social History Smoking Cessation: Never Smoker Counseling Performed: No Alcohol Use: None Any Illegal Drug Use: No Other Last Tetanus: UNK Any Pre-Existing Lines (PICC,: No Review of Systems ROS Narrative Patient is a 64 year old female that presents with "not feeling well" since waking up. Patient states she had a CABG 2 weeks ago at [facility]. Also states HTN and hyperglycemia today. Has not taken any medication Review of Systems Constitutional: Reports malaise, Reports weakness EENTM: Reports no symptoms Cardiovascular: Reports no symptoms Respiratory: Reports no symptoms Gastrointestinal: Reports nausea, Reports vomiting Genitourinary: Reports no symptoms Musculoskeletal: Reports other (incisional pain with red , open and draining yellow pus) Neurological: Reports no symptoms Psychological: Reports no symptoms Endocrine: Reports no symptoms Physical Exam Related Data Allergies: Coded Allergies: No Known Allergies (Unverified , 03/24/17) Triage Vital Signs Vital Signs Date Time Temp Pulse Resp B/P (MAP) Pulse Ox O2 Delivery O2 Flow Rate FiO2 04/06/20 12:10 97.7 83 17 197/72 99 Room Air Vital signs reviewed: Yes Physical Exam CONSTITUTIONAL Constitutional: Present well-developed, Present well-nourished HENT HENT: Present normocephalic, Present atraumatic, Present oropharynx clear/moist, Present nose normal HENT L/R: Present left ext ear normal, Present right ext ear normal EYES Eyes: Reports PERRL, Reports conjunctivae normal NECK Neck: Present ROM normal PULMONARY Pulmonary: Present effort normal, Present other (decreased breath sounds) CARDIOVASCULAR Cardiovascular: Present regular rhythm, Present heart sounds normal, Present capillary refill normal, Present normal rate GASTROINTESTINAL Abdominal: Present soft, Present nontender, Present bowel sounds normal GENITOURINARY Genitourinary: Present exam deferred SKIN Skin: Present dry, Present other (chest incision draining yellow pus with redness) MUSCULOSKELETAL Musculoskeletal: Present ROM normal NEUROLOGICAL Neurological: Present alert, Present oriented x 3, Present no gross motor or sensory deficits PSYCHOLOGICAL Psychological: Present mood/affect normal, Present judgement normal Results Laboratory Lab results reviewed: Yes Imaging Imaging results reviewed: Yes Assessment & Plan Medical Decision Making MDM Patient had CABG at [facility], called surgeon Dr Kimball (consulted) Reassessment Reassessment time: 16:51 Assessment & Plan Final Impression: (1) Wound, surgical, infected (2) Nausea & vomiting Depart Disposition: ADMITTED Last Vital Signs Date Time Temp Pulse Resp B/P (MAP) Pulse Ox O2 Delivery O2 Flow Rate FiO2 04/06/20 13:04 89 14 190/58 100 04/06/20 12:10 97.7 Room Air Home Meds Reported Medications Furosemide (FUROSEMIDE) 40 Mg Tablet, 40 MG PO Daily PRN for bid, #30 TAB 04/06/20 Carvedilol (COREG) 3.125 Mg Tab, BID 04/06/20 Insulin Detemir (Levemir Flextouch) 100 Unit/1 Ml Insuln.pen, 80 UNITS SC Q12HR, UNIT 03/18/20 Simvastatin (SIMVASTATIN) 20 Mg Tablet, 20 MG PO 2100, EA 03/18/20 Glimepiride (GLIMEPIRIDE) 4 Mg Tablet, 4 MG PO BID 03/18/20 Irbesartan (IRBESARTAN) 150 Mg Tablet, 300 MG PO DAILY, #30 TAB 03/18/20 Clonidine Hcl (CLONIDINE HCL) 0.2 Mg Tablet, 0.2 MG PO TID 03/18/20 Discontinued Reported Medications Hydrochlorothiazide (HYDROCHLOROTHIAZIDE) 25 Mg Tablet, 12.5 MG PO DAILY, #30 TAB 03/18/20 Ferrous Sulfate (FERROUS SULFATE) 325 Mg Tablet, 325 MG PO DAILY 03/18/20 Ondansetron (ZOFRAN ODT) 4 Mg Tab.rapdis, 4 MG SL Q6H PRN for NAUSEA, TAB 03/28/17 Discontinued Scripts Acetaminophen With Codeine (TYLENOL WITH CODEINE #3 TABLET) 1 Each Tablet, 300 MG PO Q4HR PRN for ABDOMINAL PAIN, #45 TAB Prov:LORETA BUSH MD 03/15/20 Medications in the ED Sodium Chloride 500 ml @ 0 mls/hr Q0M STAT IV ; Start 04/06/20 at 12:59; Stop 04/06/20 at 13:06; Status DC Sodium Chloride 1,000 ml @ 125 mls/hr Q8H STAT IV ; Start 04/06/20 at 12:59; Stop 04/06/20 at 20:58 Ondansetron HCl 4 mg ONCE STAT IV ; Start 04/06/20 at 12:59; Stop 04/06/20 at 13:07; Status DC Famotidine 20 mg ONCE STAT IV ; Start 04/06/20 at 12:59; Stop 04/06/20 at 13:07; Status DC Vancomycin HCl 250 ml @ 200 mls/hr NOW ONCE IV ; Start 04/06/20 at 13:00; Stop 04/06/20 at 14:14; Status DONIS FRANKLIN Apr 06, 2020 13:21
[2020-04-06] MEDS ORDERED: VANCOMYCIN 1GM/NS 250 ML 250 ML IV ONE (13:30)
[2020-04-06 14:08] LABS: BASOPHILS # (AUTO) 0.1 (0.0-0.1); BASOPHILS % 0.7 % (0.0-1.0); EOSINOPHILS # (AUTO) 0.3 (0.0-0.4); EOSINOPHILS % 2.7 % (0.0-6.0); HEMATOCRIT 32.3 % (34.2-44.1); HEMOGLOBIN 10.6 g/dL (12.0-16.0); LYMPHOCYTES # (AUTO) 1.3 (1.0-3.2); LYMPHOCYTES % 12.6 % (18.0-39.1); MEAN CORPUSCULAR HEMOGLOBIN 29.9 pg (28-32); MEAN CORPUSCULAR HGB CONC 32.8 g/dL (31-35); MONOCYTES # (AUTO) 0.7 (0.2-0.8); MONOCYTES % 7.1 % (4.4-11.3); NEUTROPHILS # (AUTO) 7.8 (2.1-6.9); NEUTROPHILS % 76.2 % (38.7-80.0); PLATELET COUNT 543 x10e3/uL (140-360); RED BLOOD COUNT 3.55 x10e6/uL (3.6-5.1); RED CELL DISTRIBUTION WIDTH 13.8 % (11.7-14.4)
--- NOTE | 2020-04-06 14:17 | Diagnostic Imaging Report ---
EXAMINATION: CHEST SINGLE (PORTABLE) INDICATION: Shortness of breath COMPARISON: None FINDINGS: AP view TUBES and LINES: None. LUNGS: Low lung volumes with accentuation of the pulmonary vasculature. No gross lung consolidation. PLEURA: No pleural effusion or pneumothorax. HEART AND MEDIASTINUM: When allowing for low lung volumes and AP technique, the cardiac silhouette appears mildly enlarged. BONES AND SOFT TISSUES: No acute osseous lesion. Soft tissues are unremarkable. Sternotomy wires. UPPER ABDOMEN: No free air under the diaphragm. IMPRESSION: Limited portable examination. No gross acute thoracic abnormality. Signed by: Washington Hylton MD on 04/06/2020 2:14 PM
[2020-04-06 14:18] LABS: ALANINE AMINOTRANSFERASE 17 IU/L (0-55); ALBUMIN 3.7 g/dL (3.5-5.0); ALBUMIN/GLOBULIN RATIO 0.8 (0.8-2.0); ALKALINE PHOSPHATASE 72 IU/L (40-150); ANION GAP 17.4 mmol/L (8-16); BLOOD UREA NITROGEN 13 mg/dL (7-26); BUN/CREATININE RATIO 17 (6-25); CALCIUM 9.5 mg/dL (8.4-10.2); CARBON DIOXIDE 23 mmol/L (22-29); CHLORIDE 98 mmol/L (98-107); CREATINE KINASE 40 IU/L (29-168); CREATININE, SERUM 0.78 mg/dL (0.57-1.11); EST GLOMERULAR FILTRATION RATE > 60 ML/MIN (60-); GLUCOSE 233 mg/dL (74-118); POTASSIUM 4.4 mmol/L (3.5-5.1); SODIUM 134 mmol/L (136-145)
[2020-04-06] MEDS ORDERED: DEXTROSE 50% SYRINGE 50 ML IV PRN (14:45)
--- NOTE | 2020-04-06 14:49 | NUR ---
STRAIGHT CATH FOR URINE AND SENT TO LAB
[2020-04-06] MEDS ORDERED: MORPHINE SULFATE 2 MG/ML SYR 1ML IV PRN (14:50)
[2020-04-06 14:55] LABS: BILIRUBIN,URINE NEGATIVE (NEGATIVE); CLARITY,URINE SL CLOUDY (CLEAR); COLOR,URINE YELLOW (YELLOW); KETONES,URINE 2+ (NEGATIVE); LEUKOCYTE ESTERASE ,URINE NEGATIVE (NEGATIVE); NITRITE,URINE NEGATIVE (NEGATIVE); PROTEIN,URINE DIPSTICK NEGATIVE (NEGATIVE); URINE UROBILINOGEN 0.2 mg/dL (0.2 - 1)
[2020-04-06 14:56] LABS: LIPASE 21 U/L (8-78)
[2020-04-06 15:12] LABS: BACTERIA,URINE RARE /HPF
--- NOTE | 2020-04-06 15:12 | Diagnostic Imaging Report ---
EXAM: Abdomen Radiograph 2 View(s) INDICATION: Abdominal pain COMPARISON: None FINDINGS: Soft tissue attenuation from the patient's body habitus limits evaluation. The bowel gas pattern is nonspecific. Prominent formed stool within the colon. No free intraperitoneal air is identified. No abnormal soft tissue calcification. No acute osseous abnormality. IMPRESSION: Limited examination due to soft tissue attenuation from patient body habitus. Nonspecific bowel gas pattern. No radiographically identifiable free intraperitoneal air. Signed by: Washington Hylton MD on 04/06/2020 3:08 PM
[2020-04-06] MEDS: SODIUM CHLORIDE 0.9% 1000ML 1,000 ML IV SCH ×2 (15:35→21:37)
[2020-04-06] MEDS: FAMOTIDINE 20 MG/2 ML VIAL IV SCH (17:07)
[2020-04-06] MEDS: INSULIN REGULAR, HUMAN 100 UNIT/1 ML 3ML VIAL SQ SCH ×2 (17:14→21:36)
[2020-04-06] MEDS ORDERED: PROMETHAZINE 12.5MG/ NACL 0.9% 12.5 MG/50 ML BAG IV ONE (18:30)
[2020-04-06] MEDS ORDERED: HYDRALAZINE HCL 20 MG/ML VIAL IV PRN (20:00)
--- NOTE | 2020-04-06 20:32 | NUR ---
PT ARRIVED TO UNIT BY WHEELCHAIR FROM ER. PT AMBULATORY TO HOSPITAL BED. PT IS AAOX3, RR EVEN AND NON-LABORED, ON ROOM AIR. NO S/SX OF DISTRESS NOTED. ORIENTED PT TO HOSPITAL ROOM WITH ADMISSION WELCOME PACKET, CALL LIGHT, PHONE, BED CONTROLS, LIGHTS AND HOSPITAL POLICY. LEFT PT LAYING SEMI FOWLERS IN BED, BED IN LOW LOCKED POSITION, SIDE RAILS UPX2, CALL LIGHT AND PHONE WITHIN REACH.
[2020-04-06 20:34] VITALS: BP 188/67
[2020-04-06 20:59] VITALS: BP 188/67
[2020-04-06 21:00] VITALS: BP 188/67
[2020-04-06] MEDS ORDERED: VANCOMYCIN 1GM/NS 250 ML 250 ML IV SCH (21:00)
[2020-04-06] MEDS: ONDANSETRON HCL INJ 2MG/ML 2ML 2 MG/ML VIAL IV PRN (21:37)
[2020-04-07] VITALS (7 sets, daily range): BP systolic 110–202; BP diastolic 48–69
[2020-04-07] MEDS ORDERED: METOPROLOL TARTRATE INJ 1 MG/ML VIAL IV PRN (00:45)
[2020-04-07] MEDS ORDERED: ACETAMINOPHEN 325 MG TAB PO PRN (00:45)
[2020-04-07] MEDS ORDERED: FUROSEMIDE 40 MG TAB PO PRN (00:45)
[2020-04-07] MEDS ORDERED: POLYETHYLENE GLYCOL 3350 17 GM PACK PO PRN (00:45)
[2020-04-07] MEDS: VANCOMYCIN 1GM/NS 250 ML 250 ML IV SCH ×2 (01:08→13:30)
[2020-04-07] MEDS: ONDANSETRON HCL INJ 2MG/ML 2ML 2 MG/ML VIAL IV PRN ×2 (01:19→04:53)
[2020-04-07] MEDS ORDERED: TEMAZEPAM 15 MG CAP PO PRN (01:30)
--- NOTE | 2020-04-07 01:43 | History and Physical ---
The patient seen just before midnight. CHIEF COMPLAINT: Nausea, vomiting, and malaise. PRIMARY CARE PHYSICIAN: Diego Mcleod MD. CONSULTING PHYSICIAN: Demarco Carter MD. HISTORY OF PRESENT ILLNESS: The patient is a 64-year-old female, mostly Mexican speaking, who is status post coronary artery bypass graft 2 weeks ago at [facility], admitted with complaints of "not feeling well" since awakening earlier this morning with elevated blood sugars and elevated blood pressure, stating that she had not taken any medications at home. She went home after her surgery and presents today with vomiting 4 times yesterday and multiple times today. She was seen in the emergency department by the ER physician. PAST MEDICAL HISTORY: Hypertension, type 1 diabetes mellitus, hyperlipidemia, non ST-elevation MO, severe coronary artery disease, cholelithiasis, and obesity. PAST SURGICAL HISTORY: Coronary artery bypass graft 2 weeks ago at [facility], bilateral tubal ligation, left heart catheterization with 80% LAD calcification. FAMILY HISTORY: Mother had an MO, at age 87. Father at age 88, had diabetes mellitus. SOCIAL HISTORY: Denies any previous use of tobacco, alcohol, or illicit drugs. She is , with several children. Ambulates with a walker, postsurgically. ALLERGIES: NO KNOWN ALLERGIES. REVIEW OF SYSTEMS: A 14-point review of systems completed. The patient states she has malaise and has had chills. Denies fever. She was supposed to see her eye doctor and she has a history of diabetes. Denies problems with ears, nose, throat, respiratory, genitourinary, psychiatric, integumentary. Cardiovascular, denies palpitations, has mild chest pain, has been having elevated blood pressures. Gastrointestinal, she has been having nausea, vomiting as per history of present illness. Her last bowel movement was yesterday on 04/05. Does take medicine at home for constipation. No complaints of musculoskeletal, neurologic, allergic, or hematologic problems. She has had elevated fingerstick blood glucose levels at home. PHYSICAL EXAMINATION: VITAL SIGNS: Temperature 97.2, pulse 97, blood pressure 188/67, respirations 17, oxygen saturation 98%. Height 5 feet 2 inches, weight 173 pounds. BMI 31.63. GENERAL: No acute distress, supine, wearing a face mask. She is moaning as though she is uncomfortable. LUNGS: Generally clear to auscultation. Respiratory pattern even and unlabored, breathing on room air. HEENT: EOMI. NECK: Supple. CARDIOVASCULAR: Regular rate and rhythm. No murmur. Normal saline infusing at 125 mL an hour. She has a mid chest surgical site incision, appears to be poorly healing. ABDOMEN: Bowel sounds positive. Soft, obese. No guarding. EXTREMITIES: No pitting edema. No clubbing, cyanosis, or marked swelling. NEUROLOGICAL: GCS 15. Nonfocal. LABORATORY DATA: WBC is 10.2, hemoglobin 10.6, hematocrit 32.3, platelets 543, neutrophils 76.2%. Sodium 134, potassium 4.4, chloride 98, CO2 23, BUN 13, creatinine 0.78, glucose 233, estimated GFR greater than 60. Fingerstick blood glucose levels 287, 240. B type natriuretic peptide 182.7, blood cultures x2. Wound culture as well as urine culture and sensitivity all pending. Coronavirus PCR has been collected and is pending. Chest x-ray negative. KUB negative. A 12-lead EKG showed normal sinus rhythm with a heart rate of 83. Urinalysis shows slightly cloudy urine, specific gravity 1.02, pH 7, glucose 2+, ketones 2+, small amount of blood. Negative leukocyte esterase, rbc's 6-10. ASSESSMENT/PLAN: 1. Infected sternal surgical site, status post coronary artery bypass graft. Dr. Carter with Cardiothoracic surgery has been consulted. We will leave it up to him as to whether Dr. Anne, the patient's build manager who saw her previously was consulted. Await wound culture and sensitivity results. WBCs 10.2, mildly elevated. Afebrile. Also continue vancomycin and IV antibiotic. 2. Nausea and vomiting with history of cholelithiasis. Currently, no vomiting. Continue p.r.n. Zofran and PPI. Consider GI consult if persist. 3. Severe coronary artery disease, history of zma-DL-zobletknf myocardial infarction. Monitor telemetry. 4. Uncontrolled hypertension. Blood pressure 188/67. Home medications be resumed. 5. Uncontrolled type 1 diabetes mellitus. Fingerstick blood glucose levels above 200. Sliding scale insulin. Monitor fingerstick blood glucose levels. Currently, on clear liquid diet. 6. Hyperlipidemia. Resume home antihyperlipidemic. 7. Obesity with BMI 31.63. Dietary restrictions. 8. Prophylaxis, Pepcid. Billing code [id number]. Time spent 60 minutes. Dictated by Morgan Reyes NP MD JAYDON Bernal/FRANKOL /[id number]
[2020-04-07] MEDS: CLONIDINE HCL 0.2 MG TAB PO SCH ×3 (05:24→21:34)
[2020-04-07 05:25] LABS: BASOPHILS % 0.3 % (0.0-1.0); EOSINOPHILS % 0.2 % (0.0-6.0); HEMATOCRIT 29.1 % (34.2-44.1); HEMOGLOBIN 9.4 g/dL (12.0-16.0); LYMPHOCYTES # (AUTO) 0.7 (1.0-3.2); LYMPHOCYTES % 6.8 % (18.0-39.1); MEAN CORPUSCULAR HEMOGLOBIN 29.7 pg (28-32); MEAN CORPUSCULAR HGB CONC 32.3 g/dL (31-35); MEAN CORPUSCULAR VOLUME 91.8 fL (81-99); MONOCYTES # (AUTO) 0.5 (0.2-0.8); MONOCYTES % 4.5 % (4.4-11.3); NEUTROPHILS % 87.5 % (38.7-80.0); PLATELET COUNT 585 x10e3/uL (140-360); RED BLOOD COUNT 3.17 x10e6/uL (3.6-5.1); RED CELL DISTRIBUTION WIDTH 14.2 % (11.7-14.4)
[2020-04-07 05:50] LABS: ALANINE AMINOTRANSFERASE 16 IU/L (0-55); ALBUMIN 3.4 g/dL (3.5-5.0); ALBUMIN/GLOBULIN RATIO 0.8 (0.8-2.0); ALKALINE PHOSPHATASE 68 IU/L (40-150); ANION GAP 16.8 mmol/L (8-16); BLOOD UREA NITROGEN 10 mg/dL (7-26); BUN/CREATININE RATIO 13 (6-25); CALCIUM 8.7 mg/dL (8.4-10.2); CARBON DIOXIDE 22 mmol/L (22-29); CHLORIDE 102 mmol/L (98-107); CREATININE, SERUM 0.78 mg/dL (0.57-1.11); EST GLOMERULAR FILTRATION RATE > 60 ML/MIN (60-); GLUCOSE 234 mg/dL (74-118); MAGNESIUM 1.8 MG/DL (1.3-2.1); POTASSIUM 3.8 mmol/L (3.5-5.1); SODIUM 137 mmol/L (136-145)
--- NOTE | 2020-04-07 06:13 | NUR ---
CONSULTATION CALLED TO MD BAEZ ANSWERING SERVICE. WAITING FOR CALLBACK.
--- NOTE | 2020-04-07 06:20 | NUR ---
SPOKE WITH MD BAEZ CONCERNING CONSULTATION. NO NEW ORDERS RECEIVED. WILL SEE PATIENT THIS AM.
[2020-04-07] MEDS: SODIUM CHLORIDE 0.9% 1000ML 1,000 ML IV SCH ×3 (06:45→22:45)
--- NOTE | 2020-04-07 07:00 | NUR ---
bedside shift report received pt in stable condition, denies pain at this time, updated on poc vocied understanding, ivf infusing to r ac 20g no ss of infiltration noted, incision to midsternum intact, no other co voiced call light in reach will continue to monitor
[2020-04-07] MEDS: FAMOTIDINE 20 MG TAB PO SCH ×2 (07:30→16:30)
[2020-04-07] MEDS: INSULIN REGULAR, HUMAN 100 UNIT/1 ML 3ML VIAL SQ SCH ×4 (07:30→21:00)
--- NOTE | 2020-04-07 07:36 | NUR ---
wound care performed as ordered, incision cleaned with normal saline, open wound packed with normal saline wet to dry dressing, entire incisiion covered with boarder dressing pt tolerated well
[2020-04-07] MEDS: GLIMEPIRIDE 2 MG TAB PO SCH ×2 (08:48→17:40)
[2020-04-07] MEDS: FAMOTIDINE 20 MG/2 ML VIAL IV SCH ×2 (08:49→17:00)
[2020-04-07] MEDS: IRBESARTAN 150 MG TAB PO SCH (08:50)
[2020-04-07] MEDS: DOCUSATE SODIUM 100 MG CAP PO SCH ×2 (08:50→17:41)
[2020-04-07] MEDS: PHOSPHORUS 250 MG TAB PO SCH (08:51)
[2020-04-07] MEDS: CARVEDILOL 3.125 MG TAB PO SCH ×2 (08:51→17:41)
[2020-04-07] MEDS: MAGNESIUM OXIDE 400 MG TAB PO SCH ×2 (08:52→17:43)
[2020-04-07] MEDS: ZINC SULFATE 220 MG CAP PO SCH ×2 (08:52→17:43)
[2020-04-07] MEDS: ASCORBIC ACID 500 MG TAB PO SCH ×2 (08:52→17:43)
[2020-04-07] MEDS: OYST-CAL-D 500MG TABLET PO SCH ×2 (08:52→17:43)
[2020-04-07] MEDS: MULTIVITAMINS/MINERALS TAB PO SCH (08:52)
[2020-04-07] MEDS: INSULIN GLARGINE 100 UNITS/ML VIAL SC SCH ×2 (09:32→21:00)
--- NOTE | 2020-04-07 13:12 | Consultation ---
DATE OF CONSULTATION: 04/07/2020 REASON FOR CONSULTATION: Coronary artery disease, chest pain; requested by Dr. Sterling Meyer Cardiology: Franny Anne MD [employer] Gro[employer] Machine Operator: Moniuqe Parrish MD HISTORY: This is a 64-year-old diabetic lady with history of hypertension and hyperlipidemia, who was admitted earlier this month with recurrent chest and arm pain. She had a cardiac catheterization that showed proximal LAD and circumflex disease. Troponins were elevated and she was ruled in for a dlk-HB-yesigqhtn myocardial infarction. She was transferred to [facility] where I performed an uneventful two vessel bypass. Left internal mammary artery was placed to the LAD and a saphenous vein graft was placed to the ramus. Post-operatively she made excellent progress. EF post-operatively was 70% without any evidence of pericardial effusion. At the time of discharge, she was feeling well and her wounds were well healed. Over the last 24 to 72 hours, she has developed sternal discomfort and some minor drainage from the inferior aspect of her wound. No fever or chills. There is no prior history of stroke or claudication. She has been hospitalized on several occasions with lightheadedness, which was attributed to hypoglycemia. She does not smoke or drink. PAST MEDICAL HISTORY: Insulin-dependent diabetes, coronary bypass surgery, hypertension, and hyperlipidemia. SOCIAL HISTORY: Negative for smoking or alcohol. with several children. MEDICATIONS: See MAR. ALLERGIES: NONE KNOWN. FAMILY HISTORY: Positive for coronary artery disease in her mother who had a heart attack. REVIEW OF SYSTEMS: GENERAL: Negative for fatigue and malaise. NEUROLOGIC: Negative for focal weakness in the extremities or dysarthria. HEENT: Negative for decreased vision or decreased hearing. CARDIAC: Positive as above. PULMONARY: Negative for shortness of breath or wheezing. GI: No constipation or diarrhea. : Negative for hematuria or dysuria. ENDOCRINE: Negative for polyuria or polydipsia. VASCULAR: Negative for claudication. SKIN: Negative for rashes or itching. HEMATOLOGIC: Negative for clotting or bleeding. INFECTIOUS: Negative for fevers or sweating. PSYCHIATRIC: Negative for depression or anxiety. PHYSICAL EXAMINATION: GENERAL: Somewhat overweight lady, lying flat in bed, in no apparent distress. She speaks primarily Sri Lankan. HEENT: Extraocular motion full. Mucous membranes moist. VITAL SIGNS: Blood pressure 130/73, pulse 85 and regular, respirations 16 and unlabored. NECK: Supple. Nontender. No JVD. CARDIAC: Shows a regular rate and rhythm. There is a normal S1 and S2. There is no S3 or S4. Sternal wound is well approximated except for approximately 1.5 cm inferior aspect where the skin has . No erythema. No purulent drainage. LUNGS: Clear to auscultation and percussion bilaterally. ABDOMEN: Globoid benign. Good bowel sounds. No hepatosplenomegaly. BACK: No CVA tenderness. No muscular spasm. EXTREMITIES: No cyanosis, clubbing, or edema. Saphenous vein harvest site has healed well. VASCULAR: Carotids 2+/2+ bilaterally. No carotid bruits. Radials, brachials, femorals 2+/2+ bilaterally. Ulnar is 1+/2+ bilaterally. Dorsalis pedis pulses 2+/2+ bilaterally. SKIN: No rashes or nonhealing ulcers. MUSCULOSKELETAL: Full range of motion at all joints. No joint swelling. NEUROLOGIC: Cranial nerves II through XII intact. Sensation intact to light touch and pinprick bilaterally. Strength 5/5 in all extremities. LYMPHATIC: Negative for cervical, clavicular, femoral adenopathy. LABORATORY DATA: White count 9.7. Hemoglobin 12.6, hematocrit 39.5, platelet count 13.1. Sodium 141, potassium 3.9, BUN 7, creatinine 0.74. Chest x-ray pending. IMPRESSION: Doing well after coronary bypass surgery. The patient has some wound separation at the inferior aspect of her wound. There is no evidence of deep infection. Wound dressings have been initiated. I reviewed the dressings with the nurse. MD ELIEL Hylton/MODL /[id number]
--- NOTE | 2020-04-07 13:23 | NUR ---
WOUND CARE CONSULT FOR 64YO MALE HX OF DIABETIES ,N&V AND MIDLINE CHEST SURGICAL WOUND INFECTION BELKIS 21 ON CONSERVATIVE PUP STATUS AND INTERVENTIONS AND VISCO MATTRESS LABS: WBC-10.25 HGB_3.7 GLUCOSE-234 SKIN ASSESSMENT COMPLETE PATIENT PRESENTS WITH MIDSTERNAL NON HEALING SURGICAL WOUND WITH SCOPE PUNCTURE SITES ASESSMENT AND MEASUREMENT OF AREAS LISTED ON WOUND ASSESSMENT FORM RECOMMENDATIONS: NURSING TO CONTINUE TO MAINTAIN CONSERVATIVE PUP STATUS AND INTERVENTIONS AND VISCO MATTRESS NURSING TO CONTINUE TO ASSIST PATIENT OUT OF BED FOR MEALS AND MUCH TOLERATED NURSING TO CONTINUE TO ASSIST PATIENT NEEDED WITH MEALS AND NUTRITIONAL SUPPLEMENTS TO ENSURE PROPER REQUIREMENTS FOR HEALING NURSING TO CONTINUE TO OFFLOAD FEET AND HEELS NEEDED WITH PILLOW SUSPENSION WHEN IN BED NURSING TO CLEAN MIDSTERNAL NON HEALING SURGICAL WOUND WITH SCOPE PUNCTURE SITES WITH NORMAL SALINE DAILY AND PACK DISTAL OPEN PORTION WITH MAXSORB AG ,COVER ENTIRE MIDLINE WOUND WITH MAXSORB AG 4X4 AND TELFA BANDAGE PUNCTURE SITES ARE TO BE COVERED WITH MAXSORB AG AND ALLEVYN FOAM PLACED ON SURFACE Addendum: 04/07/20 at 1332 by Keshawn Overton RN Amended: Links added.
--- NOTE | 2020-04-07 14:33 | NUR ---
infectious disease consultation Sternal wound infection This is a very pleasant 64-year-old [place]i female who underwent CABG on March 19 she is coming with little bit of redness in the drainage and dehiscence from her sternal wound the patient is currently laying in bed comfortably there is no fever no chills no nausea no vomiting no diarrhea. Patient seen and examined chart reviewed events reviewed The patient is a 64-year-old female, mostly Somali speaking, who is status post coronary artery bypass graft 2 weeks ago at [facility], admitted with complaints of "not feeling well" since awakening earlier this morning with elevated blood sugars and elevated blood pressure, stating that she had not taken any medications at home. She went home after her surgery and presents today with vomiting 4 times yesterday and multiple times today. She was seen in the emergency department by the ER physician. PAST MEDICAL HISTORY: Hypertension, type 1 diabetes mellitus, hyperlipidemia, non ST-elevation MN, severe coronary artery disease, cholelithiasis, and obesity. PAST SURGICAL HISTORY: Coronary artery bypass graft 2 weeks ago at [facility], bilateral tubal ligation, left heart catheterization with 80% LAD calcification. FAMILY HISTORY: Mother had an MN, at age 87. Father at age 88, had diabetes mellitus. SOCIAL HISTORY: Denies any previous use of tobacco, alcohol, or illicit drugs. She is , with several children. Ambulates with a walker, postsurgically. ALLERGIES: NO KNOWN ALLERGIES. REVIEW OF SYSTEMS: A 14-point review of systems completed. The patient states she has malaise and has had chills. Denies fever. She was supposed to see her eye doctor and she has a history of diabetes. Denies problems with ears, nose, throat, respiratory, genitourinary, psychiatric, integumentary. Cardiovascular, denies palpitations, has mild chest pain, has been having elevated blood pressures. Gastrointestinal, she has been having nausea, vomiting as per history of present illness. Her last bowel movement was yesterday on 04/05. Does take medicine at home for constipation. No complaints of musculoskeletal, neurologic, allergic, or hematologic problems. She has had elevated fingerstick blood glucose levels at home. PHYSICAL EXAMINATION: VITAL SIGNS: Temperature 97.2, pulse 97, blood pressure 188/67, respirations 17, oxygen saturation 98%. Height 5 feet 2 inches, weight 173 pounds. BMI 31.63. GENERAL: No acute distress, supine, wearing a face mask. alert and oriented LUNGS: Generally clear to auscultation. Respiratory pattern even and unlabored, breathing on room air. HEENT: EOMI. NECK: Supple. CARDIOVASCULAR: Regular rate and rhythm. No murmur. Normal saline infusing at 125 mL an hour. She has a mid chest surgical site incision There is slight erythema and minimal dehiscence is really no cameron pus draining there is some drainage noted on the dressing. ABDOMEN: Bowel sounds positive. Soft, obese. No guarding. EXTREMITIES: No pitting edema. No clubbing, cyanosis, or marked swelling. NEUROLOGICAL: GCS 15. Nonfocal. LABORATORY DATA: WBC is 10.2, hemoglobin 10.6, hematocrit 32.3, platelets 543, neutrophils 76.2%. Sodium 134, potassium 4.4, chloride 98, CO2 23, BUN 13, creatinine 0.78, glucose 233, estimated GFR greater than 60. Fingerstick blood glucose levels 287, 240. B type natriuretic peptide 182.7, blood cultures x2. Wound culture as well as urine culture and sensitivity all pending. Coronavirus PCR has been collected and is pending. Chest x-ray negative. KUB negative. A 12-lead EKG showed normal sinus rhythm with a heart rate of 83. Urinalysis shows slightly cloudy urine, specific gravity 1.02, pH 7, glucose 2+, ketones 2+, small amount of blood. Negative leukocyte esterase, rbc's 6-10. ASSESSMENT/PLAN: 1. Infected sternal surgical site, status post coronary artery bypass graft. recommend to do a CAT scan of the chest wound culture. Up with patient on vancomycin and cefepime. Local care keep wound clean and dry. We will discuss with Dr. Carter with Cardiothoracic surgery has been consulted. 2. Nausea and vomiting with history of cholelithiasis. Currently, no vomiting. Continue p.r.n. Zofran and PPI. Consider GI consult if persist. 3. Severe coronary artery disease, history of feq-LH-voxtpfcau myocardial infarction. Monitor telemetry. 4. Uncontrolled hypertension. Blood pressure 188/67. Home medications be resumed. 5. Uncontrolled type 1 diabetes mellitus. Fingerstick blood glucose levels above 200. Sliding scale insulin. Monitor fingerstick blood glucose levels. Currently, on clear liquid diet. 6. Hyperlipidemia. Resume home antihyperlipidemic. 7. Obesity with BMI 31.63. Dietary restrictions. 8. Prophylaxis, Pepcid.
[2020-04-07] MEDS ORDERED: SODIUM CHLORIDE 0.9% 50ML 50 ML ONE (18:34)
[2020-04-07] MEDS ORDERED: IOPAMIDOL 370 MG/ML 200 ML INFUS..BTL INJ ONE (18:35)
--- NOTE | 2020-04-07 18:41 | Diagnostic Imaging Report ---
EXAM: CT Chest WITH contrast 04/07/2020 6:14 PM INDICATION: Diabetes. Sternal wound infection. Status post CABG 03/19/2020. ^rule out sternal wound infection rule out abscess ^[id number] ^[id number] COMPARISON: 03/14/2020 TECHNIQUE: Chest was scanned utilizing a multidetector helical scanner from the lung apex through the level of the adrenal glands with administration of IV contrast. Coronal and sagittal reformations were obtained. Routine protocol was performed. IV CONTRAST: 100 mL of Isovue-370 COMPLICATIONS: None RADIATION DOSE: Total DLP: 499 mGy*cm Estimated effective dose: (DLP x 0.014 x size factor) mSv CTDIvol has been reviewed. It is below the limits set by the Radiation Protocol Committee (RPC). Dose modulation, iterative reconstruction, and/or weight based adjustment of the mA/kV was utilized to reduce the radiation dose to as low as reasonably achievable. FINDINGS: LINES/ TUBES: Sternal wires with associated postsurgical change. Small air foci and skin defect at the anterior chest with associated skin thickening and inflammatory change adjacent to the sternum. 3.5 cm ill-defined low density collection at the inferior aspect of the sternum adjacent to the anterior inferior heart border best seen on sagittal image 65 and axial image 72 could be due to a developing phlegmon in the appropriate clinical context. No well-formed drainable fluid collection/abscess is seen. LUNGS AND AIRWAYS: Small left pleural effusion with associated atelectasis. Mild chronic appearing changes in the lungs. Airways are normal. PLEURA: The pleural spaces are clear. HEART AND MEDIASTINUM: The thyroid gland is normal. No mediastinal, hilar or axillary lymphadenopathy. The heart is normal in size. There is no pericardial effusion. UPPER ABDOMEN: Unremarkable. BONES: The visualized bony thorax is within normal limits. SOFT TISSUES: Unremarkable. IMPRESSION: Sternal wires with associated postsurgical change. Small air foci and skin defect at the anterior chest with associated skin thickening and inflammatory change adjacent to the sternum. 3.5 cm ill-defined low density collection at the inferior aspect of the sternum adjacent to the anterior inferior heart border best seen on sagittal image 65 and axial image 72 could be due to a developing phlegmon in the appropriate clinical context. No well-formed drainable fluid collection/abscess is seen. Small left pleural effusion with associated atelectasis. Mild chronic appearing changes in the lungs. Signed by: Dr. Gumaro Ma M.D. on 04/07/2020 6:38 PM
--- NOTE | 2020-04-07 19:13 | NUR ---
WALKING ROUNDS PERFORMED, RECEIVED PT LAYING SEMI FOWLERS IN BED, AAOX3, RR EVEN AND NON-LABORED, ON ROOM AIR. DRESSING TO ANTERIOR CHEST CDI. LEFT PT LAYING SEMI FOWLERS IN BED, BED IN LOW LOCKED POSITION, SIDE RAILS UPX2, CALL LIGHT AN PHONE WITHIN REACH.
--- NOTE | 2020-04-07 21:14 | NUR ---
SPOKE WITH MD BAEZ FOR ORDER CLARIFICATION ON WOUND CARE. NEW ORDERS RECEIVED TO FOLLOW WOUND CARE INSTRUCTIONS FOR CARE.
[2020-04-07] MEDS: SIMVASTATIN 20 MG TAB PO SCH (21:34)
--- NOTE | 2020-04-07 21:40 | NUR ---
NOTIFIED MARILY BENNETT HELD WITH PT BS AT 60. NEW ORDERS RECEIVED TO DRAW BLOOD SUGAR Q2H AT THIS TIME.
--- NOTE | 2020-04-07 23:49 | Progress Note ---
DATE: 04/07/2020 CONSULTING PHYSICIANS: 1. Dr. Demarco Carter with Cardiovascular Surgery. 2. Dr. Kat Gay with Infectious Disease. SUBJECTIVE: The patient is supine in bed. teamcenter consultant utilized is Mikayla. I spoke with the patient regarding what happened after her surgery regarding her care at home. The patient states that her eldest daughter was helping her at home, however, she was not receiving any kind of physical therapy or wound care. Currently, has minimal complaints of mild pain at the sternal wound site and cold hands, which she has when her blood sugar is low. Case was discussed with FRANCA Boggs who states that Dr. Carter said that it was okay for the patient to be discharged home from CV Surgery standpoint, but that the patient would need wound care via home health on discharge. The patient states at home, she was using 20 to 60 units of Lantus depending on her blood sugar and for example, if her blood sugar was 220, that she would use 30 units. OBJECTIVE: VITAL SIGNS: Temperature 98.9, heart rate 77, blood pressure 120/52, respirations 16, and oxygen saturation 99%. Telemetry shows sinus rhythm, heart rate 72. GENERAL: No acute distress, supine, wearing a face mask. LUNGS: Clear to auscultation. Respiratory pattern even and unlabored. No supplemental oxygen use. HEENT: EOMI. NECK: Supple. CARDIOVASCULAR: Regular rate and rhythm without murmur. She has a mid chest sternal surgical site incision with dressing covering. ABDOMEN: Bowel sounds positive. Soft and obese. No guarding. EXTREMITIES: With no pitting edema. No clubbing, cyanosis, or marked swelling. NEUROLOGICAL: GCS 15. Nonfocal. LABORATORY DATA: WBCs 10.23, hemoglobin 9.4, hematocrit 29.1, and platelets 585. Sodium 137, potassium 3.8, chloride 102, CO2 22, anion gap 16.8, BUN 10, creatinine 0.78, estimated GFR greater than 60, and glucose 234. Fingerstick blood glucose levels today 257, 379, and 241. Hemoglobin A1c 7.2%. Calcium 8.7, phosphorus 2.0, and magnesium 1.8. Total bilirubin 0.5, AST 19, ALT 16, and alkaline phosphatase 68. Total protein 7.5 and albumin 3.4. Vancomycin trough level 8.3. Coronavirus PCR collected 04/06, remains pending. Blood cultures x2 collected on 04/06, show no growth after 24 hours. Preliminary urine culture show no growth, 04/06. Chest wound culture preliminary report shows gram-negative bacillus. CT of the chest done today shows sternal wires with associated postsurgical change, small air foci and skin defect at the anterior chest with associated skin thickening and inflammatory change adjacent to the sternum. A 3.5 cm ill-defined low-density collection at the inferior aspect of the sternum adjacent to the anterior-inferior heart border, best seen on sagittal image 65 and axial image 72, could be due to developing phlegmon in the appropriate clinical context. No well-formed drainable fluid collection/abscess seen. Fingerstick blood glucose level at 8 p.m. was 60 mg/dL. ASSESSMENT AND PLAN: 1. Infected sternal surgical site, status post coronary artery bypass graft. Per Cardiothoracic Surgery, the patient could be discharged from Dr. Carter's standpoint. No outcomes analyst needed at this point. WBCs 10.23, afebrile. Continue vancomycin. We will await wound culture and sensitivity results. 2. Nausea and vomiting with history of cholelithiasis. Currently denies nausea or vomiting. Continue p.r.n. Zofran and PPI. 3. Severe coronary artery disease, history of xwt-FY-uqkdjvvdv myocardial infarction. Monitor telemetry. 4. Uncontrolled hypertension. Blood pressure 120/52. Blood pressure yesterday 188/67, much better controlled. 5. Uncontrolled type 1 diabetes mellitus. Most recent fingerstick blood glucose level 60. We will ask that fingerstick blood glucose levels be collected every 2 hours to ensure hypoglycemia improves. Currently, she is on a clear liquid diet. We will change her to an 1800-calorie ADA diet. We will decrease Lantus insulin from 80 units subcutaneous q.12 hours to 40 units every 12 hours. Continue sliding scale insulin. 6. Hyperlipidemia. Continue simvastatin. 7. Obesity with BMI 31.63. Dietary restrictions. 8. Prophylaxis, Pepcid. 9. Billing code [id number]. Time spent 35 minutes. Dictated by Morgan Reyes, BETSY Simba Meyer MD HWP/MODL /[id number]
[2020-04-08] VITALS (11 sets, daily range): BP systolic 85–125; BP diastolic 40–86
--- NOTE | 2020-04-08 01:00 | NUR ---
NOTIFIED MARILY WOMACK NP CONCERNING PT LOW BP WITH PATIENT ASYMPTOMATIC. NO NEW ORDERS RECEIVED CONTINUE TO MONITOR PT.
[2020-04-08] MEDS: VANCOMYCIN 1GM/NS 250 ML 250 ML IV SCH ×2 (02:09→12:50)
[2020-04-08 05:57] LABS: BASOPHILS # (AUTO) 0.1 (0.0-0.1); BASOPHILS % 0.5 % (0.0-1.0); EOSINOPHILS # (AUTO) 0.2 (0.0-0.4); HEMATOCRIT 24.1 % (34.2-44.1); HEMOGLOBIN 7.5 g/dL (12.0-16.0); LYMPHOCYTES # (AUTO) 2.1 (1.0-3.2); LYMPHOCYTES % 21.9 % (18.0-39.1); MEAN CORPUSCULAR HEMOGLOBIN 29.3 pg (28-32); MEAN CORPUSCULAR HGB CONC 31.1 g/dL (31-35); MEAN CORPUSCULAR VOLUME 94.1 fL (81-99); MONOCYTES # (AUTO) 0.9 (0.2-0.8); MONOCYTES % 9.4 % (4.4-11.3); NEUTROPHILS # (AUTO) 6.3 (2.1-6.9); NEUTROPHILS % 65.7 % (38.7-80.0); PLATELET COUNT 426 x10e3/uL (140-360); RED BLOOD COUNT 2.56 x10e6/uL (3.6-5.1); RED CELL DISTRIBUTION WIDTH 14.6 % (11.7-14.4)
[2020-04-08 06:19] LABS: ANION GAP 7.7 mmol/L (8-16); BLOOD UREA NITROGEN 14 mg/dL (7-26); BUN/CREATININE RATIO 18 (6-25); CALCIUM 7.8 mg/dL (8.4-10.2); CARBON DIOXIDE 24 mmol/L (22-29); CHLORIDE 107 mmol/L (98-107); EST GLOMERULAR FILTRATION RATE > 60 ML/MIN (60-); GLUCOSE 124 mg/dL (74-118); POTASSIUM 3.7 mmol/L (3.5-5.1); SODIUM 135 mmol/L (136-145)
[2020-04-08] MEDS: SODIUM CHLORIDE 0.9% 1000ML 1,000 ML IV SCH ×3 (07:00→16:51)
[2020-04-08] MEDS: INSULIN REGULAR, HUMAN 100 UNIT/1 ML 3ML VIAL SQ SCH ×4 (07:30→20:33)
[2020-04-08] MEDS: FAMOTIDINE 20 MG TAB PO SCH ×2 (07:30→16:53)
--- NOTE | 2020-04-08 07:30 | NUR ---
BEDSIDE ROUNDS COMPLETE NO DISTRESS NOTED UPDATED ON POC VOICED UNDERSTANDING, DENIES PAIN AT THIS TIME, IVF INFUSING TO L AC 20G O SS OF INFILTRATION NOTED, NO OTHER CO VOICED CALL LIGHT IN REACH WILL CONTINUE TO MONTIOR
[2020-04-08] MEDS: INSULIN GLARGINE 100 UNITS/ML VIAL SC SCH ×2 (09:00→21:55)
[2020-04-08] MEDS: GLIMEPIRIDE 2 MG TAB PO SCH ×2 (09:19→16:54)
[2020-04-08] MEDS: IRBESARTAN 150 MG TAB PO SCH (09:20)
[2020-04-08] MEDS: DOCUSATE SODIUM 100 MG CAP PO SCH ×2 (09:21→17:07)
[2020-04-08] MEDS: CLONIDINE HCL 0.2 MG TAB PO SCH ×3 (09:21→21:35)
[2020-04-08] MEDS: PHOSPHORUS 250 MG TAB PO SCH (09:22)
[2020-04-08] MEDS: OYST-CAL-D 500MG TABLET PO SCH ×2 (09:22→17:03)
[2020-04-08] MEDS: MAGNESIUM OXIDE 400 MG TAB PO SCH ×2 (09:22→17:03)
[2020-04-08] MEDS: MULTIVITAMINS/MINERALS TAB PO SCH (09:22)
[2020-04-08] MEDS: CARVEDILOL 3.125 MG TAB PO SCH ×2 (09:22→17:02)
[2020-04-08] MEDS: ASCORBIC ACID 500 MG TAB PO SCH ×2 (09:23→17:03)
[2020-04-08] MEDS: FAMOTIDINE 20 MG/2 ML VIAL IV SCH ×2 (09:23→16:54)
[2020-04-08] MEDS: ZINC SULFATE 220 MG CAP PO SCH ×2 (09:23→17:03)
--- NOTE | 2020-04-08 09:40 | NUR ---
WOUND CARE PERFORMED PER ORDERED, TOLERATED WELL, CALL LIGHT IN REACH WILL CONTINUE TO MONITOR
--- NOTE | 2020-04-08 14:32 | NUR ---
SPOKE WITH PT ABOUT THE NEED FOR 14 DAYS OF IV ABX AND THE SNF IN NETWORK, SHE AGREED TO COURTYARDS OF [facility], COMPLETED RTF, COVID FORM, PASRR AND PUT ALL WITH PACKET, FAXED TO FACILITY AND PUT PACKET AT NURSES STATION FOR COMPLETION OF TRANSFER
--- NOTE | 2020-04-08 14:48 | NUR ---
REPORT CALLED, TO RECEIVING NURSE PT TRANSFERRRED TO RM 112, PT LEFT IN STABLE CONDITION
[2020-04-08] MEDS: MEROPENEM 1GM 100 ML IV SCH (17:07)
--- NOTE | 2020-04-08 19:00 | NUR ---
RECEIVED PATIENT IN BEDSIDE SHIFT REPORT. PATIENT RESTING IN BED AT THIS TIME. NO PAIN REPORTED. NO S&S OF DISTRESS NOTED. NEW PICC LINE INSERTED AT END OF DAY SHIFT, AWAITING CXR FOR PLACEMENT. [facility]. BED LOCKED IN LOWEST POSITION, SIDE RAILS UPX2, CALL LIGHT IN REACH.
--- NOTE | 2020-04-08 20:06 | Diagnostic Imaging Report ---
Examination: Single AP view of the chest. COMPARISON: None. INDICATION: Line placement DISCUSSION: Lines/tubes: Final chest x-ray shows right PICC line with tip overlying the cavoatrial junction. Sternotomy wires. Lungs: Pulmonary is congestion. Low lung volumes. Pleura: There is no pleural effusion or pneumothorax. Heart and mediastinum: Cardio megaly. Bones and soft tissues: No acute bony abnormalities. IMPRESSION: 1. Right PICC line with tip overlying the cavoatrial junction. Signed by: Dr. Lopez Corrales M.D. on 04/08/2020 8:03 PM
--- NOTE | 2020-04-08 20:40 | Progress Note ---
DATE: SUBJECTIVE: Ms. Rhodes is doing better. The sternal wound seems better. Discussed with Vascular Surgery. There is no plan for surgery. Her wound is showing ESBL. The sternum seems to be better. CAT scan was reviewed. PHYSICAL EXAMINATION: GENERAL: Currently alert and oriented. VITALS SIGNS: Stable, currently afebrile. HEENT: She is not icteric. NECK: Supple. CHEST: Clear. HEART: S1, S2. ABDOMEN: Soft. IMPRESSION: The patient has sternal wound infection. We will put her on meropenem 1 g IV piggyback q.8 hours. Get a PICC line, arranged for 2 weeks, could be discharged home after the above is arranged. We will follow. MD ZULMA Zavala/KRIS /[id number]
[2020-04-08] MEDS: SIMVASTATIN 20 MG TAB PO SCH (21:35)
--- NOTE | 2020-04-08 22:06 | Progress Note ---
DATE: SUBJECTIVE: The patient is lying supine in bed. Appears relaxed. No acute distress. She has just had a PICC line inserted. law instructor today is Mikayla. Per the nurse, the patient has been ambulating today. She does still complain of chills and malaise as well as some dysuria. She also has low back pain 6/10 on a 0-10 pain scale. Last bowel movement 04/06. OBJECTIVE: VITAL SIGNS: Temperature 98.3, heart rate 64, blood pressure 101/86, respirations 20, oxygen saturation 100% on room air GENERAL: Supine, wearing a face mask. LUNGS: Clear to auscultation. Respiratory pattern even and unlabored. HEENT: EOMI. NECK: Supple. CARDIOVASCULAR: Regular rate and rhythm without murmur. She has a mid chest sternal surgical site incision with dressing covering clean, dry, intact. No drainage noted. ABDOMEN: Bowel sounds positive. Soft, obese. No guarding. EXTREMITIES: No pitting edema. No clubbing, cyanosis, or swelling. NEUROLOGICAL: GCS 15. Nonfocal. LABORATORY DATA: WBCs 9.53, hemoglobin 7.5, hematocrit 24.1, platelets 426. Sodium 135, potassium 3.7, chloride 107, CO2 of 24, anion gap 7.7, BUN 14, creatinine 0.8, estimated GFR greater than 60, glucose 124. Fingerstick blood glucose levels 114, 189, 218. Calcium 7.8. Vancomycin trough yesterday 8.3. Coronavirus PCR collected 04/06 not detected. Wound culture from the chest wound collected 04/06 has grown multidrug-resistant ESBL Escherichia coli as well as another gram-negative bacillus organism [id number] CFU per mL. No growth from blood cultures after 48 hours. No growth from urine culture collected 04/06 after 36-48 hours. Chest x-ray today after right upper extremity PICC placement shows tip overlying the cavoatrial junction. ASSESSMENT AND PLAN: 1. Infected sternal surgical site with multidrug-resistant extended spectrum beta-lactamase Escherichia coli, status post coronary artery bypass graft per Dr. Carter. The patient can be discharged from a cardiothoracic surgery standpoint. WBCs 9.53. Afebrile. Per Dr. Gay, the patient will need Merrem 1 g IV every 8 hours for two weeks. Await further wound culture and sensitivity results. 2. Status post nausea and vomiting with history of cholelithiasis. Currently denies nausea or vomiting. Continue PPI and p.r.n. Zofran. 3. Anemia. Monitor H and H, hemoglobin 7.5. We will check fecal occult blood test and get an anemia workup. 4. Severe coronary artery disease, history of zvb-AW-erpsetu elevation myocardial infarction. Monitor telemetry. 5. Controlled hypertension. Blood pressure 101/86. Monitor. 6. Uncontrolled type 1 diabetes mellitus. Fingerstick blood glucose level 60 yesterday. The patient has been on every 2 hour fingerstick checks and they have been fine. Continue 1800-calorie ADA diet. Continue Lantus 40 units q.12 hours and sliding scale insulin. 7. Hyperlipidemia. Simvastatin. 8. Obesity with BMI of 31.63. Dietary restrictions. 9. Prophylaxis, Pepcid. Billing code 10313. Time spent 35 minutes. Dictated by Morgan Reyes NP MD JAYDON Bernal/KRIS /[id number]
--- NOTE | 2020-04-08 22:50 | NUR ---
REMOVED L UA 20G IV D/T WORKING PICC LINE IN R UA. CATHETER TIP INTACT. PRESSURE DRESSING APPLIED.
[2020-04-09] VITALS (8 sets, daily range): BP systolic 112–160; BP diastolic 45–59
[2020-04-09] MEDS: MEROPENEM 1GM 100 ML IV SCH ×3 (01:11→17:19)
[2020-04-09] MEDS: SODIUM CHLORIDE 0.9% 1000ML 1,000 ML IV SCH ×3 (01:11→20:06)
[2020-04-09 04:58] LABS: BASOPHILS % 0.5 % (0.0-1.0); EOSINOPHILS # (AUTO) 0.3 (0.0-0.4); EOSINOPHILS % 3.4 % (0.0-6.0); HEMOGLOBIN 7.5 g/dL (12.0-16.0); LYMPHOCYTES # (AUTO) 1.3 (1.0-3.2); LYMPHOCYTES % 17.5 % (18.0-39.1); MEAN CORPUSCULAR HEMOGLOBIN 29.5 pg (28-32); MEAN CORPUSCULAR HGB CONC 31.3 g/dL (31-35); MEAN CORPUSCULAR VOLUME 94.5 fL (81-99); MONOCYTES # (AUTO) 0.8 (0.2-0.8); MONOCYTES % 10.5 % (4.4-11.3); NEUTROPHILS # (AUTO) 5.2 (2.1-6.9); NEUTROPHILS % 67.7 % (38.7-80.0); PLATELET COUNT 381 x10e3/uL (140-360); RED BLOOD COUNT 2.54 x10e6/uL (3.6-5.1); RED CELL DISTRIBUTION WIDTH 14.7 % (11.7-14.4)
[2020-04-09 05:21] LABS: ANION GAP 11.7 mmol/L (8-16); BLOOD UREA NITROGEN 11 mg/dL (7-26); BUN/CREATININE RATIO 16 (6-25); CALCIUM 7.7 mg/dL (8.4-10.2); CARBON DIOXIDE 23 mmol/L (22-29); CHLORIDE 109 mmol/L (98-107); CREATININE, SERUM 0.67 mg/dL (0.57-1.11); EST GLOMERULAR FILTRATION RATE > 60 ML/MIN (60-); GLUCOSE 94 mg/dL (74-118); POTASSIUM 3.7 mmol/L (3.5-5.1); SODIUM 140 mmol/L (136-145)
--- NOTE | 2020-04-09 07:00 | NUR ---
RCD PT AT BED PT IS ALERT AND ORIENTED RESTING ON BED IV PATENT BED LOW AND LOCKED CALL LIGHT IN REACH
[2020-04-09] MEDS: INSULIN REGULAR, HUMAN 100 UNIT/1 ML 3ML VIAL SQ SCH ×4 (07:30→20:23)
[2020-04-09] MEDS: GLIMEPIRIDE 2 MG TAB PO SCH ×2 (07:30→16:25)
[2020-04-09] MEDS: FAMOTIDINE 20 MG TAB PO SCH ×2 (07:30→16:25)
[2020-04-09] MEDS: MULTIVITAMINS/MINERALS TAB PO SCH (09:00)
[2020-04-09] MEDS: MAGNESIUM OXIDE 400 MG TAB PO SCH ×2 (09:00→16:26)
[2020-04-09] MEDS: CLONIDINE HCL 0.2 MG TAB PO SCH ×3 (09:00→20:12)
[2020-04-09] MEDS: IRBESARTAN 150 MG TAB PO SCH (09:00)
[2020-04-09] MEDS: ASCORBIC ACID 500 MG TAB PO SCH ×2 (09:00→16:26)
[2020-04-09] MEDS: DOCUSATE SODIUM 100 MG CAP PO SCH ×2 (09:00→16:25)
[2020-04-09] MEDS: PHOSPHORUS 250 MG TAB PO SCH (09:00)
[2020-04-09] MEDS: CARVEDILOL 3.125 MG TAB PO SCH ×2 (09:00→16:25)
[2020-04-09] MEDS: ZINC SULFATE 220 MG CAP PO SCH ×2 (09:00→16:26)
[2020-04-09] MEDS: INSULIN GLARGINE 100 UNITS/ML VIAL SC SCH ×2 (09:00→20:23)
[2020-04-09] MEDS: OYST-CAL-D 500MG TABLET PO SCH ×2 (09:00→16:26)
--- NOTE | 2020-04-09 17:17 | NUR ---
ml Rhodes is doing better. DOING WELL NO COMPLAINTS D W PATIENT The sternal wound seems better. Discussed with Vascular Surgery. There is no plan for surgery. Her wound is showing ESBL. The sternum seems to be better. CAT scan was reviewed. PHYSICAL EXAMINATION: GENERAL: Currently alert and oriented. VITALS SIGNS: Stable, currently afebrile. HEENT: She is not icteric. NECK: Supple. CHEST: Clear. HEART: S1, S2. ABDOMEN: Soft. IMPRESSION: The patient has sternal wound infection. We will put her on meropenem 1 g IV piggyback q.8 hours. Get a PICC line, arranged for 2 weeks, could be discharged home after the above is arranged. We will follow. DC WHEN ARRANGED
--- NOTE | 2020-04-09 18:42 | NUR ---
PT RESTING ON BED BED SIDE REPORT GIVEN TO ONCOMING NURSE
[2020-04-09] MEDS ORDERED: SOD PHOSPHATE/SOD BIPHOSPHATE ENEMA 132 ML BTL PR PRN (19:00)
[2020-04-09] MEDS ORDERED: LACTULOSE SYRUP 20 GM/30 ML UDC PO PRN (19:00)
--- NOTE | 2020-04-09 19:00 | NUR ---
Patient visited in room during nursing rounds. Patient alert and oriented x 3. Ambulatory with standby assist prn. Pt on 2L NC (off and on). On Contact isolation for ESBL of wound. S/B CABG 2 weeks ago with midline surgical incision on chest covered with lengthy surgical dressing (C/D/I). On IVF (NS at 125ml/hr). Call leal within reach. Will monitor pt closely.
[2020-04-09] MEDS ORDERED: BISACODYL 10 MG SUPP PR ONE (19:45)
[2020-04-09] MEDS: SIMVASTATIN 20 MG TAB PO SCH (20:12)
[2020-04-09 20:31] LABS: BILIRUBIN,URINE NEGATIVE (NEGATIVE); CLARITY,URINE CLEAR (CLEAR); COLOR,URINE YELLOW (YELLOW); KETONES,URINE NEGATIVE (NEGATIVE); LEUKOCYTE ESTERASE ,URINE TRACE (NEGATIVE); NITRITE,URINE NEGATIVE (NEGATIVE); PROTEIN,URINE DIPSTICK NEGATIVE (NEGATIVE); URINE UROBILINOGEN 0.2 mg/dL (0.2 - 1)
[2020-04-09 20:44] LABS: BACTERIA,URINE MODERATE /HPF; EPITHELIAL CELLS,URINE MANY /LPF; RBC,URINE 0-5 /HPF (0-5); TRANSITIONAL EPI CELLS,URINE FEW; WBC,URINE (MAN) 0-5 /HPF (0-5)
--- NOTE | 2020-04-09 22:20 | NUR ---
Spoke with RT about lack of incentive spirometer in patient's room. RT stated will provide one and place in patient's room tonight.
[2020-04-10] VITALS (8 sets, daily range): BP systolic 105–199; BP diastolic 56–85
[2020-04-10] MEDS: MEROPENEM 1GM 100 ML IV SCH ×3 (02:30→18:00)
[2020-04-10] MEDS: SODIUM CHLORIDE 0.9% 1000ML 1,000 ML IV SCH ×2 (05:10→14:45)
[2020-04-10 05:56] LABS: BASOPHILS # (AUTO) 0.1 (0.0-0.1); BASOPHILS % 0.6 % (0.0-1.0); EOSINOPHILS # (AUTO) 0.3 (0.0-0.4); EOSINOPHILS % 3.2 % (0.0-6.0); HEMATOCRIT 26.4 % (34.2-44.1); HEMOGLOBIN 8.4 g/dL (12.0-16.0); LYMPHOCYTES # (AUTO) 1.4 (1.0-3.2); MEAN CORPUSCULAR HEMOGLOBIN 29.8 pg (28-32); MEAN CORPUSCULAR HGB CONC 31.8 g/dL (31-35); MEAN CORPUSCULAR VOLUME 93.6 fL (81-99); MONOCYTES # (AUTO) 0.8 (0.2-0.8); MONOCYTES % 9.7 % (4.4-11.3); NEUTROPHILS # (AUTO) 6.1 (2.1-6.9); NEUTROPHILS % 70.3 % (38.7-80.0); PLATELET COUNT 389 x10e3/uL (140-360); RED BLOOD COUNT 2.82 x10e6/uL (3.6-5.1); RED CELL DISTRIBUTION WIDTH 14.6 % (11.7-14.4); RETICULOCYTE % 3.5 % (0.8-2.2)
[2020-04-10 06:21] LABS: % IRON SATURATION 10 % (15-50); ANION GAP 9.9 mmol/L (8-16); BLOOD UREA NITROGEN 7 mg/dL (7-26); BUN/CREATININE RATIO 13 (6-25); CALCIUM 8.1 mg/dL (8.4-10.2); CARBON DIOXIDE 25 mmol/L (22-29); CHLORIDE 110 mmol/L (98-107); CREATININE, SERUM 0.56 mg/dL (0.57-1.11); EST GLOMERULAR FILTRATION RATE > 60 ML/MIN (60-); IRON 25 ug/dL (50-170); POTASSIUM 3.9 mmol/L (3.5-5.1); SODIUM 141 mmol/L (136-145); TOTAL IRON BINDING CAPACITY 258 ug/dL (261-478); TRANSFERRIN 184 mg/dL (180-382)
[2020-04-10 06:23] LABS: GLUCOSE 45 mg/dL (74-118)
--- NOTE | 2020-04-10 06:40 | NUR ---
Called Aga Cottrell and notified of blood glucose of 45 (lab) and fingerstick glucose of 51. Informed that patient has received 1 amp of D50 and will re-check blood glucose later. No further orders given.
[2020-04-10 06:42] LABS: FERRITIN 233.61 ng/mL (4.63-204.00)
--- NOTE | 2020-04-10 07:10 | NUR ---
RCD PT AT BED PT IS ALERT AND ORIENTED RESTING ON BED IV PATENT BY SALINE FLSH BED LOW AND LOCKED CALL LIGHT IN REACH
[2020-04-10] MEDS: FAMOTIDINE 20 MG TAB PO SCH ×2 (07:30→16:30)
[2020-04-10] MEDS: INSULIN REGULAR, HUMAN 100 UNIT/1 ML 3ML VIAL SQ SCH ×4 (07:30→21:00)
[2020-04-10] MEDS: GLIMEPIRIDE 2 MG TAB PO SCH ×2 (07:30→16:30)
[2020-04-10] MEDS: MULTIVITAMINS/MINERALS TAB PO SCH (09:00)
[2020-04-10] MEDS: DOCUSATE SODIUM 100 MG CAP PO SCH ×2 (09:00→16:51)
[2020-04-10] MEDS: MAGNESIUM OXIDE 400 MG TAB PO SCH ×2 (09:00→16:51)
[2020-04-10] MEDS: CLONIDINE HCL 0.2 MG TAB PO SCH ×3 (09:00→21:14)
[2020-04-10] MEDS: ASCORBIC ACID 500 MG TAB PO SCH ×2 (09:00→16:52)
[2020-04-10] MEDS: CARVEDILOL 3.125 MG TAB PO SCH ×2 (09:00→16:51)
[2020-04-10] MEDS: OYST-CAL-D 500MG TABLET PO SCH ×2 (09:00→16:51)
[2020-04-10] MEDS: ZINC SULFATE 220 MG CAP PO SCH ×2 (09:00→16:52)
[2020-04-10] MEDS: INSULIN GLARGINE 100 UNITS/ML VIAL SC SCH ×2 (09:00→21:00)
[2020-04-10] MEDS: IRBESARTAN 150 MG TAB PO SCH (09:00)
--- NOTE | 2020-04-10 14:32 | NUR ---
DRESSING CHANGED ON THE CHEST
--- NOTE | 2020-04-10 15:00 | NUR ---
pt c/o weakness and tired checked blood sugar 90 mmg,checked vitals and did the bladder scan its 51 ml after bladder scan she voided 500ml urine ,explained to the pt everything by child development instructor christophe id [id number]
--- NOTE | 2020-04-10 18:46 | NUR ---
PT RESTING ON BED BED SIDE REPORT GIVEN TO ONCOMING NURSE
--- NOTE | 2020-04-10 19:00 | Progress Note ---
DATE: SUBJECTIVE: Ms. Rhodes is doing well. There is no new complaint. REVIEW OF SYSTEMS: Otherwise, unremarkable. PHYSICAL EXAMINATION: GENERAL: Currently, alert. VITAL SIGNS: Stable, afebrile. HEENT: She is not icteric. NECK: Supple. CHEST: Clear. HEART: S1, S2. ABDOMEN: Soft. The chest wall seems to be doing better with the chest wall infection, multidrug resistant. She could be discharged home with IV antibiotics as ordered. Meropenem 1 g q.8 h. Follow up as an outpatient. Need to repeat the CAT scan as outpatient in 3 weeks or so. Continue meropenem. Recheck CBC with the chemistry panel. MD ZULMA Zavala/KRIS /[id number]
[2020-04-10] MEDS: SIMVASTATIN 20 MG TAB PO SCH (21:14)
[2020-04-10] MEDS ORDERED: IRON SUCROSE 100 MG in SODIUM CHLORIDE 0.9% 100 ML 100 ML IV SCH (22:45)
[2020-04-10] MEDS ORDERED: FUROSEMIDE 20 MG TAB PO ONE (22:45)
[2020-04-11] VITALS (8 sets, daily range): BP systolic 130–184; BP diastolic 56–69
--- NOTE | 2020-04-11 00:06 | Progress Note ---
DATE: 04/10/2020 REASON FOR PROGRESS NOTE: Sternal wound. SUBJECTIVE: The patient is sitting up in a chair, feeling well. Dressing intact. OBJECTIVE: VITAL SIGNS: Blood pressure 140/70, pulse 80 and regular, respirations 16, nonlabored. NECK: Supple, nontender. No JVD. CARDIAC: Regular rate and rhythm. Normal S1, S2. No S3 or S4. STERNUM: Stable. The wound separation inferiorly is stable. Minimal drainage. No erythema. LUNGS: Clear to auscultation and percussion bilaterally. ABDOMEN: Globally benign. Good bowel sounds. No hepatosplenomegaly. BACK: No CVA tenderness. No muscular spasm. EXTREMITIES: No cyanosis, clubbing, or edema. VASCULAR: Carotids 2+/2+ bilaterally. No carotid bruits. Radials 2+/2+ bilaterally. Femorals 2+/2+ bilaterally. SKIN: No rashes or nonhealing ulcers. LABORATORY DATA: Chest CT scan images are reviewed. No clearly defined collection identified. Reviewed with Radiology. There is a small left pleural effusion. WBC 8.7, hemoglobin 8.4, hematocrit 26.4, platelet count 389,000. Sodium 141, creatinine 0.56. IMPRESSION: Agree with intravenous antibiotic therapy as an outpatient. Discussed with the patient and her daughter. I spoke with the daughter by phone. We will arrange home health care as well as outpatient followup. MD ELIEL Hylton/MODL /[id number]
[2020-04-11] MEDS: MEROPENEM 1GM 100 ML IV SCH ×3 (02:24→16:57)
--- NOTE | 2020-04-11 07:10 | NUR ---
RCD PT AT BED PT IS ALERT AND ORIENTED RESTING ON BED IV PATENT BY SALINE FLUSH BED LOW AND LOCKED CALL LIGHT IN REACH
[2020-04-11] MEDS: FAMOTIDINE 20 MG TAB PO SCH ×2 (07:30→16:30)
[2020-04-11] MEDS: INSULIN REGULAR, HUMAN 100 UNIT/1 ML 3ML VIAL SQ SCH ×4 (07:30→21:20)
[2020-04-11] MEDS: GLIMEPIRIDE 2 MG TAB PO SCH ×2 (07:30→16:30)
[2020-04-11] MEDS: IRON SUCROSE 100 MG in SODIUM CHLORIDE 0.9% 100 ML 100 ML IV SCH (08:00)
[2020-04-11] MEDS: ASCORBIC ACID 500 MG TAB PO SCH ×2 (09:00→16:57)
[2020-04-11] MEDS: ZINC SULFATE 220 MG CAP PO SCH ×2 (09:00→16:57)
[2020-04-11] MEDS: OYST-CAL-D 500MG TABLET PO SCH ×2 (09:00→16:56)
[2020-04-11] MEDS: CARVEDILOL 3.125 MG TAB PO SCH ×2 (09:00→16:56)
[2020-04-11] MEDS: CLONIDINE HCL 0.2 MG TAB PO SCH ×3 (09:00→21:20)
[2020-04-11] MEDS: INSULIN GLARGINE 100 UNITS/ML VIAL SC SCH ×2 (09:00→21:00)
[2020-04-11] MEDS: MULTIVITAMINS/MINERALS TAB PO SCH (09:00)
[2020-04-11] MEDS: MAGNESIUM OXIDE 400 MG TAB PO SCH ×2 (09:00→16:56)
[2020-04-11] MEDS: DOCUSATE SODIUM 100 MG CAP PO SCH ×2 (09:00→16:56)
[2020-04-11] MEDS: IRBESARTAN 150 MG TAB PO SCH (09:00)
--- NOTE | 2020-04-11 14:23 | Progress Note ---
DATE: SUBJECTIVE: Ms. Rhodes is doing well. There is no new complaint. REVIEW OF SYSTEMS: Otherwise negative. PHYSICAL EXAMINATION: GENERAL: She is currently alert, oriented. VITAL SIGNS: Stable, afebrile. HEENT: She is not icteric. NECK: Supple. CHEST: Clear. HEART: S1, S2. ABDOMEN: Soft. IMPRESSION: Sternal wound infection. Continue with antibiotic as ordered. The patient will be seen by Vascular Surgery. Discharge home with all above arranged. Discussed with medical team. MD ZULMA Zavala/MODL /[id number]
--- NOTE | 2020-04-11 18:39 | NUR ---
PT RESTING ON BED BED SIDE REPORT GIVEN TO ONCOMING NURSE
--- NOTE | 2020-04-11 19:24 | Progress Note ---
DATE: 04/11/2020 REASON FOR PROGRESS NOTE: Sternal wound. SUBJECTIVE: The patient is sitting up in bed and breathing comfortably. Dressing intact. OBJECTIVE: VITAL SIGNS: Blood pressure 135/75, pulse 75 and regular, respirations 16 and unlabored. NECK: Supple. Nontender. No JVD. CARDIAC: Regular rate and rhythm. Normal S1 and S2. No S3, S4. STERNUM: Stable. The wound separation inferiorly is stable. There is minimal drainage. No purulence or edema. LUNGS: Clear to auscultation and percussion bilaterally. ABDOMEN: Globoid. Benign. Good bowel sounds. BACK: No CVA tenderness. No muscular spasm. EXTREMITIES: No cyanosis, clubbing, or edema. SKIN: No rashes or nonhealing ulcers. LABORATORY DATA: Chest CT was reviewed and images showed no clearly defined collection. There is a small left pleural effusion. No new blood laboratories today. IMPRESSION: Stable wound separation. Agree with intravenous antibiotic therapy as an outpatient. Discharge planning in progress. MD ELIEL Hylton/MODL /[id number]
[2020-04-11] MEDS: SIMVASTATIN 20 MG TAB PO SCH (21:20)
[2020-04-11] MEDS ORDERED: BISACODYL 10 MG SUPP PR ONE (23:15)
[2020-04-12] VITALS (8 sets, daily range): BP systolic 123–166; BP diastolic 43–66
[2020-04-12] MEDS: MEROPENEM 1GM 100 ML IV SCH ×3 (02:32→17:05)
[2020-04-12 04:34] LABS: BASOPHILS % 0.5 % (0.0-1.0); EOSINOPHILS # (AUTO) 0.5 (0.0-0.4); EOSINOPHILS % 5.9 % (0.0-6.0); HEMATOCRIT 26.3 % (34.2-44.1); HEMOGLOBIN 8.1 g/dL (12.0-16.0); LYMPHOCYTES # (AUTO) 2.1 (1.0-3.2); LYMPHOCYTES % 26.3 % (18.0-39.1); MEAN CORPUSCULAR HEMOGLOBIN 29.1 pg (28-32); MEAN CORPUSCULAR HGB CONC 30.8 g/dL (31-35); MEAN CORPUSCULAR VOLUME 94.6 fL (81-99); MONOCYTES # (AUTO) 0.8 (0.2-0.8); MONOCYTES % 10.6 % (4.4-11.3); NEUTROPHILS # (AUTO) 4.5 (2.1-6.9); NEUTROPHILS % 56.2 % (38.7-80.0); PLATELET COUNT 355 x10e3/uL (140-360); RED BLOOD COUNT 2.78 x10e6/uL (3.6-5.1); RED CELL DISTRIBUTION WIDTH 14.7 % (11.7-14.4)
[2020-04-12 04:54] LABS: ANION GAP 9.8 mmol/L (8-16); BLOOD UREA NITROGEN 8 mg/dL (7-26); BUN/CREATININE RATIO 14 (6-25); CALCIUM 8.2 mg/dL (8.4-10.2); CARBON DIOXIDE 28 mmol/L (22-29); CHLORIDE 106 mmol/L (98-107); CREATININE, SERUM 0.59 mg/dL (0.57-1.11); EST GLOMERULAR FILTRATION RATE > 60 ML/MIN (60-); GLUCOSE 89 mg/dL (74-118); MAGNESIUM 1.9 MG/DL (1.3-2.1); PHOSPHORUS 2.5 MG/DL (2.3-4.7); POTASSIUM 3.8 mmol/L (3.5-5.1); SODIUM 140 mmol/L (136-145)
--- NOTE | 2020-04-12 07:00 | Diagnostic Imaging Report ---
EXAM: ABDOMEN-1VIEW (KUB), DATE: 04/12/2020 5:40 AM INDICATION: Abdominal discomfort. Bloating. Constipation. COMPARISON: 04/06/2020. FINDINGS: LINES/TUBES: None BOWEL PATTERN: No evidence for obstruction. Large volume of stool throughout the colon. SOFT TISSUES: No abnormal calcifications. No mass effect. LUNG BASES: Not patchy density in the left lung base. BONES: No acute findings. IMPRESSION: Large volume of stool in the colon. Signed by: Dr. Dee Finn M.D. on 04/12/2020 6:57 AM
[2020-04-12] MEDS: INSULIN REGULAR, HUMAN 100 UNIT/1 ML 3ML VIAL SQ SCH ×4 (07:30→21:00)
[2020-04-12] MEDS: DOCUSATE SODIUM 100 MG CAP PO SCH ×2 (09:28→17:05)
[2020-04-12] MEDS: CARVEDILOL 3.125 MG TAB PO SCH ×2 (09:28→17:05)
[2020-04-12] MEDS: CLONIDINE HCL 0.2 MG TAB PO SCH ×3 (09:28→21:32)
[2020-04-12] MEDS: GLIMEPIRIDE 2 MG TAB PO SCH ×2 (09:28→17:05)
[2020-04-12] MEDS: FAMOTIDINE 20 MG TAB PO SCH ×2 (09:28→17:05)
[2020-04-12] MEDS: IRBESARTAN 150 MG TAB PO SCH (09:28)
[2020-04-12] MEDS: MULTIVITAMINS/MINERALS TAB PO SCH (09:29)
[2020-04-12] MEDS: MAGNESIUM OXIDE 400 MG TAB PO SCH ×2 (09:29→17:05)
[2020-04-12] MEDS: ZINC SULFATE 220 MG CAP PO SCH ×2 (09:29→17:05)
[2020-04-12] MEDS: OYST-CAL-D 500MG TABLET PO SCH ×2 (09:29→17:05)
[2020-04-12] MEDS: ASCORBIC ACID 500 MG TAB PO SCH ×2 (09:29→17:05)
[2020-04-12] MEDS: INSULIN GLARGINE 100 UNITS/ML VIAL SC SCH ×2 (09:30→21:00)
--- NOTE | 2020-04-12 10:23 | NUR ---
HAO NOT IN NETWORK. THIS IS A [employer] INSURANCE THROUGH [employer]. PEREZ [phone] AND SPOKE WITH NANO ABOUT BENEFITS. PT HAS SNF BENEFITS 60 DAYS PER YEAR WITH A 40% COPAY PER DAY, (89-110.00) WITH IN NETWORK FACILITIES OF [facility], [facility] AND [facility]. WILL DISCUSS WITH CM AND PT.
[2020-04-12] MEDS: IRON SUCROSE 100 MG in SODIUM CHLORIDE 0.9% 100 ML 100 ML IV SCH (10:55)
--- NOTE | 2020-04-12 11:27 | NUR ---
[facility] ARE NOT ACCEPTING PTS AT THIS TIME. [facility] IS ONLY [facility]. FAMILY IS IN AGREEMENT TO GO AND PAY THE COPAY. LET [facility] KNOW DR SOTO IS VERY CONCERNED AND WANTS TO BE NOTIFIED IF ANYTHING CHANGES IN CARE AND TO CALL HIS DE IONIZER OPERATOR NUMBER OR SEND THE PT TO THE HOSPITAL. GAVE BUILDING HIS DE IONIZER OPERATOR NUMBER.
--- NOTE | 2020-04-12 13:16 | NUR ---
WAS NOTIFIED BY [facility] THE PT CAN GO THERE, TOLD QUENTIN COHEN TO CANCEL THE REFERRAL, PENDING AUTH.
--- NOTE | 2020-04-12 13:21 | NUR ---
Patient received fleet enema earlier and has reported no BM at this time.
--- NOTE | 2020-04-12 16:03 | Progress Note ---
DATE: 04/10/2020 SUBJECTIVE: Per the nurse, the patient is short of breath earlier today on day shift with oxygen saturation 97% on room air now. She was placed on 2 L of oxygen via nasal cannula for comfort. The patient complains of being short of breath when lying down. She is currently not wearing oxygen. Her IV fluid rate was decreased to 50 mL an hour. She does complain of swelling in her ankles. The patient had complaints of being unable to urinate on the day shift. Bladder scan showed 500 mL and the patient urinated 550 mL. OBJECTIVE: VITAL SIGNS: Temperature 97.5, pulse 68, blood pressure 107/81, respiratory rate 18, and oxygen saturation 100%. GENERAL: The patient out of bed, up in a chair. LUNGS: Clear to auscultation. Respirations even and nonlabored. Not wearing supplemental oxygen. HEENT: EOMI. Moist mucous membranes. NECK: Supple. No JVD. CARDIOVASCULAR: Regular rate and rhythm. No murmur. Normal saline at 20 mL an hour with Merrem IV piggyback at 100 mL an hour into peripheral IV. ABDOMEN: Bowel sounds positive. Soft, nontender. No guarding. Does not have a Chamberlain catheter. EXTREMITIES: No pitting edema. No clubbing, cyanosis, or marked swelling. NEUROLOGICAL: GCS 15. Nonfocal. LABORATORY DATA: WBCs 8.7, RBCs 2.82, hemoglobin 8.4, hematocrit 26.4, platelets 289. Sodium 141, potassium 3.9, chloride 110, CO2 of 25, anion gap 9.9, BUN 7, creatinine 0.56, estimated GFR greater than 60, glucose 45, calcium 8.1, iron 25, total iron binding capacity 25, percent saturation 10, transferrin 184, ferritin 233.61, vitamin B12 229, folate 15.4. Fingerstick blood glucose levels at 06:27 in the morning, blood glucose was 51, subsequently 136, 201, 90, 121. Final urine culture obtained 04/08 shows no growth after 36 to 48 hours. Blood cultures x2 collected on 04/06, showed no growth after 5 days, this is a final report. The urine culture was also final report. On 04/06, chest wound culture final report showed multidrug resistant ESBL, Escherichia coli as well as Klebsiella pneumoniae that is resistant to ampicillin, otherwise sensitive to multiple antibiotics. No new imaging. ASSESSMENT AND PLAN: 1. Infected sternal surgical site with multidrug resistant ESBL, Escherichia coli and Klebsiella pneumoniae, status post coronary artery bypass graft by Dr. Carter who noted the patient can be discharged home on IV antibiotics from a cardiothoracic surgery standpoint and from Infectious Disease standpoint. However, the patient arrived to the hospital with a wound that was infected and was poorly taken care of at home. The patient's family, her daughter, as well as the patient both feel more comfortable with the patient going to a fpc facility as she is unable to get the help that she needs at home. WBCs 8.7, afebrile. Per Infectious Disease, the patient will need Merrem 1 g IV every 8 hours for 2 weeks. 2. Status post nausea and vomiting with a history of cholelithiasis, currently no nausea or vomiting. Still no bowel movement. Continue PPI and p.r.n. Zofran. Encourage nurses to give the ordered p.r.n. laxatives and enema. 3. Anemia. Monitor H and H. Hemoglobin today 8.4. Iron sucrose IV x3 doses. 4. Severe coronary artery disease, history of non ST-segment elevation myocardial infarction. Monitor telemetry. 5. Controlled hypertension. Blood pressure 107/81, monitor. 6. Mild fluid volume overload. IV fluids stopped. The patient was instructed to elevate her legs above the level of the heart. Discontinue oxygen if her oxygen saturations are greater than or equal to 95%. Lasix 20 mg p.o. once. 7. Uncontrolled type 1 diabetes mellitus with hemoglobin A1c on 04/07 7.2%. Hypoglycemia noted earlier this morning. Blood sugars were checked every 2 hours. Will change to a finger stick blood glucose every a.c. and at bedtime. Continue 1800 calorie ADA diet. 8. Hyperlipidemia. Simvastatin. 9. Obesity with BMI of 31.63. Dietary restrictions. 10. Prophylaxis, Pepcid. 11. Billing code 10833. Time spent 35 minutes. 12. Discharge planning to fpc facility for IV antibiotics, PT, proper care of sternal wound surgical site infection. Both patient and daughter in agreement of fpc facility. Dictated by Morgan Reyes NP MD DEEPAK BernalP/MODL /[id number]
--- NOTE | 2020-04-12 16:44 | Progress Note ---
DATE: 04/09/2020 CONSULTING PHYSICIANS: 1. Dr. Kat Gay with Infectious Disease. 2. Dr. Demarco Carter with Cardiothoracic Surgery. SUBJECTIVE: The patient lying supine in bed. Bahraini translation provided by Adrianna. She complains of constipation. Her last bowel movement was Sunday. She has been out of bed, ambulating with physical therapy today. She is passing gas, also complains of shortness of breath, dyspnea on exertion. OBJECTIVE: VITAL SIGNS: Temperature 98.9, heart rate 59, blood pressure 150/59, respirations 18, and oxygen saturation 100%. GENERAL: Supine, wearing a face mass. LUNGS: Clear to auscultation. Respiratory pattern even and nonlabored. The patient is currently on oxygen 1 L/minute via nasal cannula. HEENT: EOMI. NECK: Supple. CARDIOVASCULAR: Regular rate and rhythm. No murmur. She has a mid chest sternal surgical site incision with dressing covering, which is clean, dry, and intact. No drainage noted. She has right upper extremity PICC line. ABDOMEN: Bowel sounds positive. Soft, nontender, obese. No guarding. EXTREMITIES: No pitting edema. No clubbing, cyanosis, or signs of DEEP VENOUS THROMBOSIS. NEUROLOGIC: GCS is 15. Nonfocal. LABORATORY DATA: WBC 7.64, hemoglobin 7.5, hematocrit 24, and platelets 381. Sodium 140, potassium 3.7, chloride 109, CO2 of 23, anion gap 11.7, BUN 11, creatinine 0.67, estimated GFR greater than 60, calcium 7.7. Fingerstick blood glucose 94, 105, 100, and 101. IMAGING: The patient had a chest x-ray last night, confirming correct placement of the right upper extremity PICC line, the tip is overlying the cavoatrial junction. ASSESSMENT AND PLAN: 1. Infected sternal wound surgical site with multidrug resistant extended spectrum beta-lactamase Escherichia coli, status post coronary artery bypass graft per Dr. Carter. WBCs 7.64 (9.53) per Dr. Gay with Infectious Disease. The patient will need Merrem 1 g IV every 8 hours for 2 weeks. 2. Status post nausea and vomiting with history of cholelithiasis. She denies any nausea, vomiting, or diarrhea. Has complaints of constipation, p.r.n. lactulose and p.r.n. fleets enema ordered, Dulcolax suppository now. Incentive spirometry hourly. Continue PPI and p.r.n. Zofran. 3. Anemia. We will get a BMP, CBC, and anemia workup in the morning. We will check fecal occult blood test. Hemoglobin 7.5 (7.5). Monitor. 4. Severe coronary artery disease, history of NSTEMI. Monitor telemetry. 5. Controlled hypertension. Blood pressure 120/59, monitor. 6. Uncontrolled type 1 diabetes mellitus. Hemoglobin A1c 7.2% on 04/07/2020. Fingerstick blood glucose level stable. Continue 1800 calorie ADA diet. Continue Lantus 40 units q.12 hours and sliding scale insulin. 7. Hyperlipidemia, on simvastatin. 8. Obesity with BMI 31.63. Dietary restrictions. 9. Prophylaxis, Pepcid. BILLING CODE: 01280. TIME SPENT: 35 minutes. DISCHARGE PLAN: [facility], the patient and family are all in agreement about the [facility] going to [facility] facility, there she is to receive physical therapy as needed, Merrem 1 g IV every 8 hours for 14 days. Wound care. Dictated by Morgan Reyes NP MD JAYDON Bernal/KRIS /[id number]
[2020-04-12] MEDS ORDERED: DEXTROSE 50% SYRINGE 50 ML IV PRN (17:00)
--- NOTE | 2020-04-12 17:06 | NUR ---
Attempted to digitally remove stool with no success. Morgan was notified. He will consult Regan Marina.
--- NOTE | 2020-04-12 18:00 | NUR ---
Wound to anterior chest was cleaned and dressing applied per wound care orders. Patient also still denies having a BM
--- NOTE | 2020-04-12 18:09 | Progress Note ---
DATE: SUBJECTIVE: Ms. Rhodes is doing well. There are no new complaint. on arrangements for antibiotic. REVIEW OF SYSTEMS: HEENT: Negative. PULMONARY: Negative. CARDIAC: Negative. PHYSICAL EXAMINATION: GENERAL: She is currently alert, oriented. VITAL SIGNS: Stable, afebrile. HEENT: She is not icteric. NECK: Supple. CHEST: Clear. HEART: S1, S2. No murmurs. ABDOMEN: Soft. IMPRESSION: Sternal wound infection. PLAN: The plan is to discharge home with meropenem as ordered. We will check CBC, weekly chem panel. Wound care as ordered for her CVA. MD ZULMA Zavala/KRIS /[id number]
--- NOTE | 2020-04-12 18:19 | Progress Note ---
DATE: 04/11/2020 DATE OF SERVICE: April 11, 2020 CONSULTING PHYSICIANS: 1. Dr. Kat Gay with Infectious Disease. 2. Dr. Demarco Carter with Cardiothoracic Surgery. SUBJECTIVE: The patient states she cannot catch her breath. Her stomach feels bloated and she is having flatus. Per RN, MiraLAX given already. Dulcolax suppository and/or Fleet's enema planned if no BM by the morning. Lasix did improve her breathing some. OBJECTIVE: VITAL SIGNS: Temperature 96.9, pulse 60, blood pressure 184/69, respirations 22, oxygen saturation 94%. GENERAL: The patient is supine. No acute distress. She is wearing a face mask. LUNGS: Clear to auscultation. Respiratory pattern even and unlabored. HEENT: EOMI. NECK: Supple. No JVD. CARDIOVASCULAR: Regular rate and rhythm with no murmur. She has a mid chest sternal surgical site infection with dressing covering it that is clean, dry, and intact. No drainage noted. ABDOMEN: Bowel sounds positive. Soft, nontender, obese. No guarding. EXTREMITIES: No pitting edema. No clubbing, cyanosis, or signs of DVT. NEUROLOGICAL: GCS 15. Nonfocal. LABORATORY DATA: Fingerstick blood glucose levels 50, 154, 164, 154, 171. Phosphorus level 2.2. No new microbiology results or imaging results. ASSESSMENT AND PLAN: 1. Infected sternal surgical site with multidrug resistant ESBL E coli and Klebsiella pneumoniae, status post coronary artery bypass graft per Dr. Carter. Afebrile. Continue Merrem. Plan is for an additional two weeks of IV Merrem at [facility]. Wound care by wound care team. We will add wound healing medications. Maintain nutritional support. 2. Status post nausea and vomiting with history of cholelithiasis. The patient is still complaining of constipation and has received MiraLAX, Dulcolax suppository now. We will get a KUB stat. She may require an enema. 3. Iron deficiency anemia and anemia of chronic disease. Hemoglobin 8.4 yesterday. Continue to monitor H and H. Continue iron sucrose infusions. 4. Severe coronary artery disease, history of NSTEMI. Monitor telemetry. 5. Controlled hypertension. Blood pressure elevated this morning, much better this afternoon at 152/62. Continue to monitor closely. Continue carvedilol, clonidine, Irbesartan, metoprolol, Lasix. 6. Uncontrolled type 1 diabetes mellitus with episodes of hypoglycemia. Fingerstick blood glucose 94 the morning of 04/09, 51 the morning of 04/10, and 50 this morning. Hypoglycemic events in the morning noted. We will decrease her Lantus insulin to 30 units subcu every 12 hours. We will continue 1800 calorie ADA diet. 7. Hyperlipidemia. Simvastatin. 8. Obesity with BMI of 31.63. Dietary restrictions. 9. Prophylaxis, Pepcid. Billing code 62326. Time spent 35 minutes. Dictated by Morgan Reyes, BETSY MD JAYDON Bernal/MODL /[id number]
--- NOTE | 2020-04-12 19:10 | Progress Note ---
DATE: 04/12/2020 DATE OF SERVICE: April 12, 2020 SUBJECTIVE: The patient is out of bed, sitting up in a chair. Pillow Filler today is Alexsandra SCHULTE. The patient is still without a bowel movement. She states that she is tired, has malaise" feeling full." Has mild shortness of breath. She does not walk with physical therapy today. Low back pain 3/10 on a 0-10 pain scale. States she is" very cold." OBJECTIVE: VITAL SIGNS: Temperature 98.3, heart rate 73, blood pressure 166/64, respirations 16, oxygen saturation 99%. GENERAL: The patient is out of bed, sitting in a chair at the bedside. She is wearing a mask. LUNGS: Clear to auscultation. Respiratory pattern even and unlabored. The patient psychologically feels better wearing nasal cannula. She has a nasal cannula on. However, the oxygen is turned completely off and she is essentially breathing room air with a nasal cannula on. HEENT: EOMI. NECK: Supple. No JVD. CARDIOVASCULAR: Regular rate and rhythm. No murmur. She has a mid chest sternal surgical site incision. The dressing is starting to come off at the top. No drainage noted. ABDOMEN: Bowel sounds positive. Soft, obese, nontender. No guarding. EXTREMITIES: No pitting edema. No clubbing, cyanosis, or notable swelling or signs of DVT. NEUROLOGICAL: GCS 15. Nonfocal. LABORATORY DATA: WBC 7.94, RBCs 2.78, hemoglobin 9.1, hematocrit 26.3, platelets 355. Sodium 140, potassium 3.8, chloride 106, CO2 28, anion gap 9.8, BUN 8, creatinine 0.59, estimated GFR greater than 60, glucose 89. Fingerstick blood glucose levels 65, 164 and 230, calcium 8.2, phosphorus 2.5, magnesium 1.9. IMAGING: Abdomen one view KUB x-ray done today at 05:40 in the morning. Impression; large volume of stool in the colon. ASSESSMENT AND PLAN: 1. 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 Carter. WBC 7.94. Continue Merrem. Plan continues to be to transfer the patient to [facility] when bed available. There was some confusion regarding whether [facility] was in the patient's insurance network. However, it is and family and patient both still want her to go there. 2. Status post nausea and vomiting with history of cholelithiasis. No nausea or vomiting. Continue PPI and p.r.n. Zofran. The patient is still without bowel movement. KUB shows large volume of stool in the colon. The patient has had multiple interventions including, but not limited to, stool softener and Dulcolax suppository, MiraLAX, possibly lactulose. Case was discussed with Theresa, the patient's nurse. She will try JOCELIN along with fecal disimpaction. If fecal disimpaction does not work, Theresa is to put in a consult for Dr. Dirk Marina of Gastroenterology. 3. Iron deficiency anemia and anemia of chronic disease. Hemoglobin 8.1. Continue iron sucrose infusions. Fecal occult blood test pending. 4. Severe coronary artery disease, history of NSTEMI. Monitor telemetry. 5. Controlled hypertension. Blood pressure fluctuates with systolic 123 to 166 today, diastolic 43 to 64. Continue current antihypertensive regimen. 6. Uncontrolled type 1 diabetes mellitus. Fingerstick blood glucose levels show hypoglycemia in the mornings. The patient's Lantus will be decreased from 40 units every night to 30 units every night. We will monitor fingerstick blood glucose levels and if they continue to be elevated, we can change the sliding scale insulin from low to medium. Continue 1800 calorie ADA diet. 7. Hyperlipidemia. Simvastatin. 8. Obesity with BMI of 31.63. Dietary restrictions. 9. Prophylaxis. Pepcid. Billing code 30368. Time spent 35 minutes. Dictated by Morgan Reyes NP Simba Meyer MD HWP/MODL /[id number]
[2020-04-12] MEDS: SIMVASTATIN 20 MG TAB PO SCH (21:32)
[2020-04-13 00:35] VITALS: BP 110/50
[2020-04-13] MEDS ORDERED: BISACODYL 5 MG TAB EC PO ONE ×3 (00:45→01:45)
--- NOTE | 2020-04-13 00:48 | NUR ---
Dr. Regan Marina here to see patient. New orders received.
[2020-04-13] MEDS: MEROPENEM 1GM 100 ML IV SCH ×3 (01:42→18:17)
[2020-04-13] MEDS ORDERED: CITRATE OF MAGNESIA 300ML BOTTLE PO ONE (04:30)
[2020-04-13 04:44] VITALS: BP 142/56
--- NOTE | 2020-04-13 05:56 | NUR ---
Stool specimen sent to lab for analysis
--- NOTE | 2020-04-13 07:00 | NUR ---
Walking rounds done. Shift report given to oncoming nurse for continuity of care.
[2020-04-13] MEDS: INSULIN REGULAR, HUMAN 100 UNIT/1 ML 3ML VIAL SQ SCH ×3 (07:30→16:30)
[2020-04-13 07:42] VITALS: BP 154/44
[2020-04-13 07:49] VITALS: BP 154/44
[2020-04-13] MEDS: ZINC SULFATE 220 MG CAP PO SCH ×2 (08:25→18:17)
[2020-04-13] MEDS: MAGNESIUM OXIDE 400 MG TAB PO SCH ×2 (08:25→18:17)
[2020-04-13] MEDS: CARVEDILOL 3.125 MG TAB PO SCH ×2 (08:25→18:17)
[2020-04-13] MEDS: ASCORBIC ACID 500 MG TAB PO SCH ×2 (08:25→18:17)
[2020-04-13] MEDS: CLONIDINE HCL 0.2 MG TAB PO SCH ×2 (08:25→16:00)
[2020-04-13] MEDS: FAMOTIDINE 20 MG TAB PO SCH ×2 (08:25→18:16)
[2020-04-13] MEDS: IRBESARTAN 150 MG TAB PO SCH (08:25)
[2020-04-13] MEDS: MULTIVITAMINS/MINERALS TAB PO SCH (08:25)
[2020-04-13] MEDS: GLIMEPIRIDE 2 MG TAB PO SCH ×2 (08:25→18:16)
[2020-04-13] MEDS: OYST-CAL-D 500MG TABLET PO SCH ×2 (08:25→18:17)
[2020-04-13] MEDS: INSULIN GLARGINE 100 UNITS/ML VIAL SC SCH (08:26)
[2020-04-13] MEDS ORDERED: MAGNESIUM OXIDE 400 MG TAB PO SCH (09:00)
[2020-04-13] MEDS ORDERED: ZINC SULFATE 220 MG CAP PO SCH (09:00)
[2020-04-13] MEDS: DOCUSATE SODIUM 100 MG CAP PO SCH ×2 (09:00→18:16)
[2020-04-13] MEDS ORDERED: CYANOCOBALAMIN INJ 1,000 MCG/ML VIAL IM SCH (09:00)
[2020-04-13] MEDS ORDERED: ASCORBIC ACID 500 MG TAB PO SCH (09:00)
[2020-04-13] MEDS ORDERED: MULTIVITAMINS/MINERALS TAB PO SCH (09:00)
[2020-04-13] MEDS ORDERED: OYST-CAL-D 500MG TABLET PO SCH (09:00)
--- NOTE | 2020-04-13 11:21 | NUR ---
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
[2020-04-13] MEDS: IRON SUCROSE 100 MG in SODIUM CHLORIDE 0.9% 100 ML 100 ML IV SCH (12:00)
[2020-04-13] MEDS ORDERED: ONDANSETRON HCL 4 MG ORAL DISINTEGRATING TAB PO PRN (12:15)
--- NOTE | 2020-04-13 13:00 | NUR ---
Patient understand she is being transferred today to [facility].
[2020-04-13 13:25] VITALS: BP 147/44
--- NOTE | 2020-04-13 14:16 | NUR ---
Report called to GALI Edmonds at [facility]. Patient will be being transferred to room 116.
--- NOTE | 2020-04-13 18:44 | NUR ---
Patient left the floor via EMS with PICC line in place to transfer to [facility] for continuation of IV abx
--- NOTE | 2020-04-13 20:25 | Progress Note ---
DATE: SUBJECTIVE: Ms. Rhodes is doing well. There are no new complaints. REVIEW OF SYSTEMS: Otherwise unremarkable. PHYSICAL EXAMINATION: GENERAL: Currently alert, oriented. VITAL SIGNS: Stable, afebrile. HEENT: She is not icteric. NECK: Supple. CHEST: Clear. HEART: S1 and S2. ABDOMEN: Soft. IMPRESSION: Sternal wound infection. We are waiting for antibiotic. Arrangements made at the skilled care facility. Continue with local care: No new recommendation. Weekly CBC, weekly chem panel. MD ZULMA Zavala/MODL /[id number]
--- NOTE | 2020-04-14 04:11 | Discharge Summary ---
ADMISSION DIAGNOSES: Infected sternal surgical site, status post CABG with sepsis, nausea and vomiting, severe CAD with history of LA, hypertension, type 1 diabetes hyperlipidemia. DISCHARGE DIAGNOSES: Infected sternal surgical site, status post CABG with sepsis, nausea and vomiting, severe CAD with history of LA, hypertension, type 1 diabetes hyperlipidemia plus ESBL and Klebsiella pneumoniae of the sternal surgical site present on admission. HISTORY: Hypertension, diabetes, hyperlipidemia, LA, CAD, cholelithiasis, and obesity. SURGICAL HISTORY: CABG two weeks ago at [facility]. Bilateral tubal ligation. FAMILY HISTORY: Mom had an LA. Dad had diabetes. SOCIAL HISTORY: Noncontributory. HOSPITAL COURSE: A 64-year-old female admits, status post CABG two weeks ago, admits with complaints of not feeling well with elevated blood sugars and blood pressure stating that she is not taking any medications at home. She went home after surgery and has vomited four times yesterday and multiple times on admission. Dr. Ellis with CV surgery was consulted. The patient was started on IV antibiotics and a wound culture of the sternal surgical site was collected. Chest x-ray showed no gross acute thoracic abnormality. CT of the chest showed sternal wires with associated postsurgical change, small air foci and skin defect at the anterior chest with associated skin thickening and inflammatory change adjacent to the sternum. No well-formed drainable fluid collection or abscess was seen. Small left pleural effusion with associated atelectasis. The wound culture came back positive for ESBL and Klebsiella. Blood cultures were negative. Urine culture was negative. After a couple of days the patient was not having bowel movement, so KUB was done, which showed a large volume of stool in the colon. Stool for blood was negative. The patient was given multiple medications and then had multiple bowel movement. The patient will discharge to [facility] for 14 days of IV Merrem per ID and CV recommendation. She will follow up with primary care, Infectious Disease, and CV Surgery after discharge from shelter facility. The patient understands discharge instructions and agrees to plan. Vital signs stable, the patient is afebrile. Dictated by Deidra Mojica NP Simba Meyer MD WILY/MODL /[id number]
--- OUTSIDE RECORDS SUMMARY | 2020-04-16 14:24 | XMS REPORT | Clinical Summary ---
Author Author [facility] Organization [facility] Address Unknown Phone Unavailable Care Team Providers Care Frame Maker Name Role Phone PCP Unavailable Allergies Comments Active Allergy Reactions Severity Noted Date swelling Pioglitazone 02/22/2010 couph Enalapril 04/04/2011 naseau Metformin 02/22/2010 Medications End Date Status Medication Sig Dispensed Refills Start Date Active insulin detemir (LEVEMIR) Inject under 130 mL 3 100 unit/mL the skin 70 6 injectionIndications: units in the Uncontrolled type 2 morning and diabetes mellitus with 70 units at other specified night, after complication meals. Active losartan (COZAAR) 25 mg Take 2 180 tablet 1 tabletIndications: tablets by 6 Essential hypertension mouth daily. Active simvastatin (ZOCOR) 20 mg Take 1 tablet 90 tablet 1 tabletIndications: by mouth at 6 Dyslipidemia bedtime nightly. Active MONOJECT ULTRACOMFORT Use to inject 180 Each 11 INSULIN SYR 1ML 30GX5/16" medication 2 6 syringe-needleIndications times daily. : Uncontrolled type 2 Use a new diabetes mellitus with syringe each other specified time. complication Active lancets 28 2 times 100 Each 11 gaugeIndications: daily. 6 Uncontrolled type 2 diabetes mellitus with other specified complication Active clotrimazole (LOTRIMIN) 1 Apply 1-2 30 mL 3 % external drops to 6 solutionIndications: affected Tinea nails 2 times a day. Use a nail file to keep nails thin. Treatment may take up to 1 year. Active blood glucose (PRECISION Check blood 100 Each 11 1 XTRA TEST STRIPS) test glucose 3 6 stripsIndications: times daily. Uncontrolled type 2 diabetes mellitus with other specified complication Active Problems Problem Noted Date Other constipation 10/21/2017 SOB (shortness of breath) 10/21/2017 Shoulder pain 12/27/2010 Uncontrolled type II diabetes mellitus 12/03/2009 Positive occult stool blood test 12/03/2009 Illiteracy--has difficulty with taking medications 0 03/09/2008 ESSENTIAL HYPERTENSION 06/27/2007 Dyslipidemia 06/27/2007 RIGHT HEEL PAIN 06/27/2007 Immunizations Name Administration Dates Next Due Influenza Vaccine 06/29/2016, 11/11/2015, (Deferred: Other - patient not feeling well today) , 08/21/2014, 08/13/2013, 06/27/2007 PNEUMOCOCCAL 23-VALPS 11/11/2015 VACCINE 25 MCG/0.5 ML INJECTION PPV 23 Pneumococcal 12/03/2009 Polysaccaride Tdap Tetanus, diphtheria, 08/13/2013 acellular pertussis Vaccine Tropicamide 0.5% Eye-Eda 10/14/2015, 11/07/2013 15ml Family History Medical History Relation Name Comments Diabetes Father Arthritis Mother Hypertension Mother Heart Sister Relation Name Status Comments Brother Alive 3 Father Alive Mother Alive Sister Alive 2 Sister Social History Date Tobacco Use Types Packs/Day Years Used Never Smoker Smokeless Tobacco: Never Used Tobacco Cessation: Counseling Given: No Drinks/Week oz/Week Comments Alcohol Use No Sex Assigned at Date Recorded Not on file Industry Job Start Date Occupation Not on file Not on file Not on file Travel End Travel History Travel Start No recent travel history available. Last Filed Vital Signs Not on file Plan of Treatment Health Maintenance Due Date Last Done Comments DM Foot Exam (Yearly) 11/18/2014 11/18/2013, 10/10/2012 (Previously completed - External), 09/05/2011 (Previously completed - External) Breast Cancer Scrn 08/07/2017 08/07/2016, (Yearly) 09/03/2015, 09/30/2013, Additional history exists DM HGBA1C (Yearly) 08/07/2017 08/07/2016, 10/08/2015, 06/21/2015, Additional history exists DM Retinal Exam (Yearly) 08/09/2017 08/09/2016, 10/14/2015, 11/07/2013, Additional history exists Cervical Cancer Scrn (3 11/11/2018 11/11/2015, Yrs) 02/07/2012 (Previously completed - External), 03/30/2008 (Previously completed - External) Colonoscopy 10yr 08/31/2020 08/31/2010 (Previously completed - External) Goals Goal Patient Associated Recent Progress Patient-Stat Aut hor Goal Type Problems ed? Exercise 2x per week (20min Exercise No Vi llatoro, per time)-reed Pearson RN Results Not on fileafter 04/06/2019 Insurance Type Payer Benefit Subscriber ID Effective Phone Address Plan / Dates Group [employer] xxxxxxxxxx 2017-P [phone] [facility] [address] [place] [address] (Work)
--- OUTSIDE RECORDS SUMMARY | 2020-04-16 14:25 | XMS REPORT | Clinical Summary ---
Author Author CHRISTIANA [facility] Address Unknown Phone Unavailable Care Team Providers Care Wash And Greaser Name Role Phone Isaias Waller Unavailable Allergies No Known Allergies Medications End Date Status Medication Sig Dispensed Refills Start Date Active glimepiride (AMARYL) 4 MG Take 4 mg by 0 tablet mouth 2 (two) times daily. Active irbesartan (AVAPRO) 300 Take 300 mg 0 MG tablet by mouth nightly. Active insulin detemir U-100 Inject 0 (LEVEMIR) 100 unit/mL subcutaneousl injection y nightly. Active acetaminophen-codeine Take 1 tablet 0 (TYLENOL #3) 300-30 mg by mouth per tablet every 4 (four) hours as needed for Pain. Active ferrous sulfate 325 (65 Take 325 mg 0 FE) MG tablet by mouth daily with breakfast. Active ondansetron (ZOFRAN) 4 MG Take 4 mg by 0 tablet mouth every 6 (six) hours as needed for Nausea. 03/30/2021 Active aspirin 81 MG EC tablet Take 1 tablet 0 (81 mg total) 0 by mouth daily. Active atorvastatin (LIPITOR) 80 Take 1 tablet 30 tablet 1 MG tablet (80 mg total) 0 by mouth nightly. Active carvediloL (COREG) 3.125 Take 1 tablet 60 tablet 1 MG tablet (3.125 mg 0 total) by mouth 2 (two) times daily with breakfast and dinner. Active cloNIDine HCL (CATAPRES) Take 1 tablet 90 tablet 1 0.1 MG tablet (0.1 mg 0 total) by mouth 3 (three) times daily. Active furosemide (LASIX) 20 MG Take 1 tablet 60 tablet 1 tablet (20 mg total) 0 by mouth 2 (two) times daily. 03/29/2020 Discontinued metroNIDAZOLE (FLAGYL) Take 500 mg 0 500 MG tablet by mouth 3 (three) times daily. 03/29/2020 Discontinued cloNIDine HCL (CATAPRES) Take 0.2 mg 0 0.2 MG tablet by mouth 3 (three) times daily. 03/29/2020 Discontinued simvastatin (ZOCOR) 20 MG Take 20 mg by 0 tablet mouth nightly. 03/29/2020 Discontinued ciprofloxacin HCl (CIPRO) Take 500 mg 0 500 MG tablet by mouth 2 (two) times daily. 03/29/2020 Discontinued hydroCHLOROthiazide Take 12.5 mg 0 (HYDRODIURIL) 12.5 MG by mouth tablet daily. 03/29/2020 Discontinued cloNIDine HCL (CATAPRES) Take 1 tablet 90 tablet 1 0.1 MG tablet (0.1 mg 0 total) by mouth 3 (three) times daily. 03/29/2020 Discontinued atorvastatin (LIPITOR) 80 Take 1 tablet 30 tablet 1 MG tablet (80 mg total) 0 by mouth nightly. 03/29/2020 Discontinued carvediloL (COREG) 3.125 Take 1 tablet 60 tablet 1 MG tablet (3.125 mg 0 total) by mouth 2 (two) times daily with breakfast and dinner. 03/29/2020 Discontinued furosemide (LASIX) 20 MG Take 1 tablet 60 tablet 1 tablet (20 mg total) 0 by mouth 2 (two) times daily. Active Problems Problem Noted Date S/P CABG x 2 (Dr. 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 CAD (coronary artery disease) 03/20/2020 Encounters Care Team Description Date Type Specialty 03/28/2020 Orders Only General Internal Me sonia Carter, Demarco Frank MD [place] CORONARY ANDRA/SVG 03/22/2020 Surgery Pelon Giron 03/22/2020 Anesthesia Event Cory Appiah Jd 03/22/2020 Documentation Cardiology 03/20/2020 Travel Demarco Carter MD Vernon, MD Nabila Basurto, MD Jerson Robles, Faby Yang MD Coronary artery disease involving [place] coronary artery of [place] heart with angina pectoris (HCC) (Primary Dx); Diabetes mellitus type 2 in obese (HCC); Essential hypertension; Coronary artery disease involving [place] coronary artery of [place] heart with unstable angina pectoris (HCC); S/P CABG x 2; S/P CABG x 2 (Dr. Carter 03/22/2020) 03/19/2020 Hospital Cardiology - Encounter 03/29/2020 after 04/06/2019 Social History Date Tobacco Use Types Packs/Day Years Used Never Smoker Smokeless Tobacco: Never Used Alcohol Use Drinks/Week oz/Week Comments No Alcohol Habits Answer Date Recorded How often do you have a drink containing alcohol? Never 03/20/2020 How many drinks containing alcohol do you have on No t asked a typical day when you are drinking? How often do you have six or more drinks on one Not asked occasion? Sex Assigned at Date Recorded Not on file Industry Job Start Date Occupation Not on file Not on file Not on file Travel End Travel History Travel Start No recent travel history available. Last Filed Vital Signs Time Taken Vital Sign Reading 03/29/2020 7:32 AM CDT Blood Pressure 129/61 03/29/2020 7:32 AM CDT Pulse 89 03/29/2020 7:32 AM CDT Temperature 35.9 C (96.7 F) 03/29/2020 7:32 AM CDT Respiratory Rate 18 03/29/2020 7:32 AM CDT Oxygen Saturation 99% 03/28/2020 8:04 PM CDT Inhaled Oxygen 21% Concentration 03/29/2020 4:53 AM CDT Weight 82.9 kg (182 lb 12.8 oz) 03/20/2020 12:00 AM CDT Height 154.9 cm (5' 1") 03/29/2020 4:53 AM CDT Body Mass Index 34.54 Plan of Treatment Not on file Procedures Comments Procedure Name Priority Date/Time Associated Diag nosis REPORT OF PROCEDURE - 03/30/2020 ENDOSCOPY SCAN 2:01 PM CDT RHYTHM STRIP - SCAN 03/30/2020 2:01 PM CDT POCT-GLUCOSE METER Routine 03/29/2020 12:28 PM CDT POCT-GLUCOSE METER Routine 03/29/2020 8:14 AM CDT CBC (HEMOGRAM ONLY) Routine 03/29/2020 3:26 AM CDT MAGNESIUM Routine 03/29/2020 3:26 AM CDT BASIC METABOLIC PANEL (7) Routine 03/29/2020 3:26 AM CDT POCT-GLUCOSE METER Routine 03/28/2020 9:33 PM CDT POCT-GLUCOSE METER Routine 03/28/2020 4:36 PM CDT POCT-GLUCOSE METER Routine 03/28/2020 12:13 PM CDT ECG 12-LEAD Routine 03/28/2020 10:20 AM CDT Procedure Note - Interface, External Ris In - 03/28/2020 10:27 AM CDT Ventricula r Rate 89 BPM Atrial Rate 89 BPM P-R Interval 132 ms QRS Duration 76 ms Q-T Interval 364 ms QTC Calculatio n(Bazett) 442 ms P Fordyce 16 degrees R Fordyce 46 degrees T Fordyce 148 degrees Normal sinus rhythm ST & T wave abnormalit y, consider lateral ischemia Abnormal ECG No previous ECGs available ECG 12-LEAD ILEANA 03/28/2020 10:20 AM CDT POCT-GLUCOSE METER Routine 03/28/2020 8:21 AM CDT POCT-GLUCOSE METER Routine 03/28/2020 7:59 AM CDT CBC (HEMOGRAM ONLY) Routine 03/28/2020 3:55 AM CDT MAGNESIUM Routine 03/28/2020 3:55 AM CDT BASIC METABOLIC PANEL (7) Routine 03/28/2020 3:55 AM CDT POCT-GLUCOSE METER Routine 03/27/2020 9:40 PM CDT POCT-GLUCOSE METER Routine 03/27/2020 5:04 PM CDT POCT-GLUCOSE METER Routine 03/27/2020 12:47 PM CDT POCT-GLUCOSE METER Routine 03/27/2020 7:17 AM CDT CBC (HEMOGRAM ONLY) Routine 03/27/2020 6:36 AM CDT MAGNESIUM Routine 03/27/2020 6:36 AM CDT BASIC METABOLIC PANEL (7) Routine 03/27/2020 6:36 AM CDT POCT-GLUCOSE METER Routine 03/26/2020 9:27 PM CDT POCT-GLUCOSE METER Routine 03/26/2020 4:53 PM CDT 2D ECHO W/ DOPPLER Routine 03/26/2020 (CW/PW/COLOR) 2:00 PM CDT POCT-GLUCOSE METER Routine 03/26/2020 12:23 PM CDT POCT-GLUCOSE METER Routine 03/26/2020 8:14 AM CDT CBC (HEMOGRAM ONLY) Routine 03/26/2020 5:44 AM CDT MAGNESIUM Routine 03/26/2020 5:44 AM CDT BASIC METABOLIC PANEL (7) Routine 03/26/2020 5:44 AM CDT XR CHEST 1 VIEW Routine 03/26/2020 PORTABLE/BEDSIDE 4:45 AM CDT POCT-GLUCOSE METER Routine 03/25/2020 9:14 PM CDT POCT-GLUCOSE METER Routine 03/25/2020 4:57 PM CDT POCT-GLUCOSE METER Routine 03/25/2020 12:18 PM CDT POCT-GLUCOSE METER Routine 03/25/2020 8:44 AM CDT XR CHEST 1 VIEW Routine 03/25/2020 PORTABLE/BEDSIDE 4:43 AM CDT PHOSPHORUS Routine 03/25/2020 3:24 AM CDT MAGNESIUM Routine 03/25/2020 3:24 AM CDT BASIC METABOLIC PANEL (7) Routine 03/25/2020 3:24 AM CDT CBC W/PLT COUNT & AUTO Routine 03/25/2020 DIFFERENTIAL 3:23 AM CDT CBC W/PLT COUNT & AUTO Routine 03/25/2020 DIFFERENTIAL 3:23 AM CDT POCT-GLUCOSE METER Routine 03/24/2020 9:24 PM CDT TRANSFUSION SERVICE 03/24/2020 REPORT - SCAN 6:03 PM CDT POCT-GLUCOSE METER Routine 03/24/2020 5:32 PM CDT POCT-GLUCOSE METER Routine 03/24/2020 12:49 PM CDT POCT-GLUCOSE METER Routine 03/24/2020 6:30 AM CDT CALCIUM, IONIZED Routine 03/24/2020 3:02 AM CDT PHOSPHORUS Routine 03/24/2020 3:02 AM CDT CBC (HEMOGRAM ONLY) Routine 03/24/2020 3:02 AM CDT MAGNESIUM Routine 03/24/2020 3:02 AM CDT BASIC METABOLIC PANEL (7) Routine 03/24/2020 3:02 AM CDT XR CHEST 1 VIEW Routine 03/24/2020 PORTABLE/BEDSIDE 1:39 AM CDT POCT-GLUCOSE METER Routine 03/24/2020 12:33 AM CDT PREPARE RBC STAT 03/23/2020 11:54 PM CDT POCT-GLUCOSE METER Routine 03/23/2020 10:50 PM CDT HGB/HCT (H&H) - STAT LAB Routine 03/23/2020 7:44 PM CDT GLUCOSE-STAT LAB Routine 03/23/2020 7:44 PM CDT POTASSIUM-STAT LAB Routine 03/23/2020 7:44 PM CDT SODIUM NA-STAT LAB Routine 03/23/2020 7:44 PM CDT BLOOD GAS, ARTERIAL Routine 03/23/2020 7:44 PM CDT RRL CRITICAL LABS Routine 03/23/2020 (ABG,NA,K,H&H,GLUCOSE) 7:44 PM CDT TRANSFUSION SERVICE 03/23/2020 REPORT - SCAN 6:13 PM CDT POCT-GLUCOSE METER Routine 03/23/2020 5:10 PM CDT POCT-GLUCOSE METER Routine 03/23/2020 12:01 PM CDT POCT-GLUCOSE METER Routine 03/23/2020 8:13 AM CDT POCT-GLUCOSE METER Routine 03/23/2020 5:04 AM CDT XR CHEST 1 VIEW Routine 03/23/2020 PORTABLE/BEDSIDE 3:53 AM CDT CBC (HEMOGRAM ONLY) Routine 03/23/2020 2:46 AM CDT PHOSPHORUS Routine 03/23/2020 2:46 AM CDT MAGNESIUM Routine 03/23/2020 2:46 AM CDT BASIC METABOLIC PANEL (7) Routine 03/23/2020 2:46 AM CDT POCT-GLUCOSE METER Routine 03/23/2020 1:54 AM CDT POCT-GLUCOSE METER Routine 03/23/2020 12:38 AM CDT POCT-GLUCOSE METER Routine 03/22/2020 11:14 PM CDT CALCIUM, IONIZED STAT 03/22/2020 9:37 PM CDT OXYGEN SATURATION, STAT 03/22/2020 MEASURED 9:37 PM CDT BLOOD GAS, ARTERIAL STAT 03/22/2020 9:37 PM CDT CBC W/PLT COUNT & AUTO Routine 03/22/2020 DIFFERENTIAL 9:36 PM CDT PHOSPHORUS STAT 03/22/2020 9:36 PM CDT MAGNESIUM STAT 03/22/2020 9:36 PM CDT BASIC METABOLIC PANEL (7) STAT 03/22/2020 9:36 PM CDT FIBRINOGEN Routine 03/22/2020 9:36 PM CDT APTT Routine 03/22/2020 9:36 PM CDT PROTHROMBIN TIME/INR Routine 03/22/2020 9:36 PM CDT CBC W/PLT COUNT & AUTO Routine 03/22/2020 DIFFERENTIAL 9:36 PM CDT LACTIC ACID, ARTERIAL STAT 03/22/2020 9:36 PM CDT POCT-GLUCOSE METER Routine 03/22/2020 9:26 PM CDT POCT-GLUCOSE METER Routine 03/22/2020 8:22 PM CDT BLOOD GAS, ARTERIAL STAT 03/22/2020 7:23 PM CDT POCT-GLUCOSE METER Routine 03/22/2020 6:52 PM CDT TRANSFUSION SERVICE 03/22/2020 REPORT - SCAN 6:00 PM CDT POCT-GLUCOSE METER Routine 03/22/2020 5:04 PM CDT XR CHEST 1 VIEW STAT 03/22/2020 PORTABLE/BEDSIDE 3:14 PM CDT BLOOD GAS, ARTERIAL STAT 03/22/2020 2:46 PM CDT CBC W/PLT COUNT & AUTO STAT 03/22/2020 DIFFERENTIAL 2:45 PM CDT MAGNESIUM Routine 03/22/2020 2:45 PM CDT LACTIC ACID, ARTERIAL STAT 03/22/2020 2:45 PM CDT OXYGEN SATURATION, STAT 03/22/2020 MEASURED 2:45 PM CDT CALCIUM, IONIZED STAT 03/22/2020 2:45 PM CDT FIBRINOGEN STAT 03/22/2020 2:45 PM CDT APTT STAT 03/22/2020 2:45 PM CDT PROTHROMBIN TIME/INR STAT 03/22/2020 2:45 PM CDT CBC W/PLT COUNT & AUTO STAT 03/22/2020 DIFFERENTIAL 2:45 PM CDT BASIC METABOLIC PANEL (7) STAT 03/22/2020 2:45 PM CDT POCT-ACT Routine 03/22/2020 1:22 PM CDT HGB/HCT (H&H) - STAT LAB STAT 03/22/2020 1:17 PM CDT GLUCOSE-STAT LAB STAT 03/22/2020 1:17 PM CDT POTASSIUM-STAT LAB STAT 03/22/2020 1:17 PM CDT SODIUM NA-STAT LAB STAT 03/22/2020 1:17 PM CDT BLOOD GAS, ARTERIAL STAT 03/22/2020 1:17 PM CDT CALCIUM, IONIZED STAT 03/22/2020 1:17 PM CDT RRL CRITICAL LABS STAT 03/22/2020 (ABG,NA,K,H&H,GLUCOSE) 1:17 PM CDT POCT-ACT Routine 03/22/2020 12:39 PM CDT HGB/HCT (H&H) - STAT LAB STAT 03/22/2020 12:36 PM CDT GLUCOSE-STAT LAB STAT 03/22/2020 12:36 PM CDT POTASSIUM-STAT LAB STAT 03/22/2020 12:36 PM CDT SODIUM NA-STAT LAB STAT 03/22/2020 12:36 PM CDT BLOOD GAS, ARTERIAL STAT 03/22/2020 12:36 PM CDT RRL CRITICAL LABS STAT 03/22/2020 (ABG,NA,K,H&H,GLUCOSE) 12:36 PM CDT TRANSFUSE LEUKO-REDUCED Routine 03/22/2020 RED BLOOD CELLS 12:26 PM CDT POCT-ACT Routine 03/22/2020 11:53 AM CDT BLOOD GAS, VENOUS STAT 03/22/2020 11:49 AM CDT HGB/HCT (H&H) - STAT LAB STAT 03/22/2020 11:49 AM CDT GLUCOSE-STAT LAB STAT 03/22/2020 11:49 AM CDT POTASSIUM-STAT LAB STAT 03/22/2020 11:49 AM CDT SODIUM NA-STAT LAB STAT 03/22/2020 11:49 AM CDT BLOOD GAS, ARTERIAL STAT 03/22/2020 11:49 AM CDT RRL CRITICAL LABS STAT 03/22/2020 (ABG,NA,K,H&H,GLUCOSE) 11:49 AM CDT POCT-ACT Routine 03/22/2020 11:15 AM CDT HGB/HCT (H&H) - STAT LAB STAT 03/22/2020 10:49 AM CDT GLUCOSE-STAT LAB STAT 03/22/2020 10:49 AM CDT POTASSIUM-STAT LAB STAT 03/22/2020 10:49 AM CDT SODIUM NA-STAT LAB STAT 03/22/2020 10:49 AM CDT BLOOD GAS, ARTERIAL STAT 03/22/2020 10:49 AM CDT CALCIUM, IONIZED STAT 03/22/2020 10:49 AM CDT RRL CRITICAL LABS STAT 03/22/2020 (ABG,NA,K,H&H,GLUCOSE) 10:49 AM CDT POCT-ACT Routine 03/22/2020 10:47 AM CDT POCT-ACT Routine 03/22/2020 10:05 AM CDT ANESTHESIA ANA Routine 03/22/2020 9:31 AM CDT HGB/HCT (H&H) - STAT LAB STAT 03/22/2020 8:54 AM CDT GLUCOSE-STAT LAB STAT 03/22/2020 8:54 AM CDT POTASSIUM-STAT LAB STAT 03/22/2020 8:54 AM CDT SODIUM NA-STAT LAB STAT 03/22/2020 8:54 AM CDT BLOOD GAS, ARTERIAL STAT 03/22/2020 8:54 AM CDT CALCIUM, IONIZED STAT 03/22/2020 8:54 AM CDT RRL CRITICAL LABS STAT 03/22/2020 (ABG,NA,K,H&H,GLUCOSE) 8:54 AM CDT ANA,3D 03/22/2020 Coronary artery dis ease 8:00 AM CDT involving [place] coronary artery of [place] heart without angina pectoris [place] CORONARY 03/22/2020 Coronary artery disease ANDRA/SVG 8:00 AM CDT involving [place] co ronary artery of [place] heart without angina pectoris POCT-GLUCOSE METER Routine 03/22/2020 5:37 AM CDT CBC W/PLT COUNT & AUTO Routine 03/22/2020 DIFFERENTIAL 5:08 AM CDT PHOSPHORUS STAT 03/22/2020 Add-on 5:08 AM CDT MAGNESIUM STAT 03/22/2020 Add-on 5:08 AM CDT APTT Routine 03/22/2020 5:08 AM CDT PROTHROMBIN TIME/INR Routine 03/22/2020 5:08 AM CDT HEMOGLOBIN A1C Routine 03/22/2020 5:08 AM CDT COMPREHENSIVE METABOLIC Routine 03/22/2020 PANEL 5:08 AM CDT CBC W/PLT COUNT & AUTO Routine 03/22/2020 DIFFERENTIAL 5:08 AM CDT POCT-GLUCOSE METER Routine 03/21/2020 9:29 PM CDT APTT Routine 03/21/2020 7:47 PM CDT POCT-GLUCOSE METER Routine 03/21/2020 5:11 PM CDT ABORH, MANUAL STAT 03/21/2020 12:30 PM CDT TYPE AND SCREEN, Routine 03/21/2020 AUTOMATED 12:15 PM CDT APTT Routine 03/21/2020 12:15 PM CDT POCT-GLUCOSE METER Routine 03/21/2020 12:07 PM CDT SARS-COV2/RT-PCR ([facility] & Routine 03/21/2020 REF LABS) 10:32 AM CDT 2D ECHO W/ DOPPLER STAT 03/21/2020 (CW/PW/COLOR) 9:31 AM CDT XR CHEST 1 VIEW Routine 03/21/2020 PORTABLE/BEDSIDE 7:22 AM CDT POCT-GLUCOSE METER Routine 03/21/2020 6:46 AM CDT HEPATIC FUNCTION PANEL Add-On 03/21/2020 5:46 AM CDT CBC (HEMOGRAM ONLY) Routine 03/21/2020 5:46 AM CDT APTT Routine 03/21/2020 5:46 AM CDT BASIC METABOLIC PANEL (7) Routine 03/21/2020 5:46 AM CDT APTT STAT 03/20/2020 11:20 PM CDT APTT Routine 03/20/2020 9:37 PM CDT POCT-GLUCOSE METER Routine 03/20/2020 9:10 PM CDT POCT-GLUCOSE METER Routine 03/20/2020 4:31 PM CDT APTT Routine 03/20/2020 3:16 PM CDT PLATELET COUNT Routine 03/20/2020 3:16 PM CDT SARS-COV2/RT-PCR ([facility] & Routine 03/20/2020 REF LABS) 12:24 PM CDT POCT-GLUCOSE METER Routine 03/20/2020 11:[address] BRAIN WITHOUT IV Routine 03/20/2020 CONTRAST 11:[address]/CTA CAROTID Routine 03/20/2020 11:22 AM CDT CTA BRAIN Routine 03/20/2020 11:22 AM CDT TROPONIN I Routine 03/20/2020 10:06 AM CDT XR CHEST 1 VIEW Routine 03/20/2020 PORTABLE/BEDSIDE 8:31 AM CDT POCT-GLUCOSE METER Routine 03/20/2020 6:44 AM CDT CAROTID DOPPLER BILATERAL Routine 03/20/2020 4:13 AM CDT CBC W/PLT COUNT & AUTO Routine 03/20/2020 DIFFERENTIAL 2:37 AM CDT HEMOGLOBIN A1C Routine 03/20/2020 2:37 AM CDT MAGNESIUM Routine 03/20/2020 2:37 AM CDT LIPID PANEL Routine 03/20/2020 2:37 AM CDT PROTHROMBIN TIME/INR Routine 03/20/2020 2:37 AM CDT HEPATIC FUNCTION PANEL Routine 03/20/2020 2:37 AM CDT CBC W/PLT COUNT & AUTO Routine 03/20/2020 DIFFERENTIAL 2:37 AM CDT TROPONIN I Routine 03/20/2020 2:37 AM CDT BASIC METABOLIC PANEL (7) Routine 03/20/2020 2:37 AM CDT POCT-GLUCOSE METER Routine 03/20/2020 2:19 AM CDT after 04/06/2019 Results * EKG-SCANNED (03/30/2020 2:01 PM CDT) Narrative Performed At This result has an attachment that is n ot available. * RHYTHM STRIP - SCAN (03/30/2020 2:01 PM CDT) Narrative Performed At This result has an attachment that is n ot available. * POC-Glucose meter (03/29/2020 12:28 PM CDT) Only the most recent of 46 results within the time period is included. POC-Glucose Meter 285 (H)Comment: : TESTED AT 70 - 110 mg/dL [facility] [address] [place] [id number]: Yeast Stacker/Food Packer ID = [id number] for MAX FREGOSO Specimen Blood Performing Organization Address [facility] Ph one Number [address] [facility] * CBC (Hemogram only) (03/29/2020 3:26 AM CDT) Only the most recent of 7 results within the time period is included. WBC 13.2 (H) 3.5 - 10.5 K/L [facility] RBC 3.00 (L) 3.93 - 5.22 M/L [facility] Hemoglobin 9.1 (L) 11.2 - 15.7 GM/DL [facility] Hematocrit 27.8 (L) 34.1 - 44.9 % [facility] MCV 92.7 79.4 - 94.8 fL [facility] MCH 30.3 25.6 - 32.2 pg [facility] MCHC 32.7 32.2 - 35.5 GM/DL [facility] RDW 14.1 11.7 - 14.4 % [facility] Platelets 338 150 - 450 K/CU MM [facility] MPV 9.7 9.4 - 12.3 fL [facility] nRBC 0 0 - 0 /100 WBC [facility] Specimen Blood Performing Organization Address [facility] Ph one Number [phone] [address] * Magnesium (03/29/2020 3:26 AM CDT) Only the most recent of 11 results within the time period is included. Magnesium 1.9 1.6 - 2.6 mg/dL [facility] Specimen Blood Narrative Performed At Yeast Stacker ID - PIAYA L [facility] Performing Organization Address [facility] Ph one Number [place] [phone] [place] [address] * Basic Metabolic Panel (03/29/2020 3:26 AM CDT) Only the most recent of 11 results within the time period is included. Sodium 132 (L) 136 - 145 meq/L [facility] Potassium 4.2 3.5 - 5.1 meq/L [facility] Chloride 98 98 - 107 meq/L [facility] CO2 28 22 - 29 meq/L [facility] BUN 13 7 - 21 mg/dL [facility] Creatinine 0.74 0.57 - 1.25 mg/dL [facility] Glucose 209 (H) 70 - 105 mg/dL [facility] Calcium 8.6 8.4 - 10.2 mg/dL [facility] EGFR Comment: INSUFFICIENT CLINICAL [facility] DATA TO CALCULATE ESTIMATED [facility] GFR. Specimen Blood Narrative Performed At Yeast Stacker ID - PIAYA L [facility] Performing Organization Address [facility] one Number [place] [phone] [place] [address] * ECG 12 lead (03/28/2020 10:20 AM CDT) Specimen Narrative Performed At Ventricular Rate 89 BPM GE MUSE Atrial Rate 89 BPM P-R Interval 132 ms QRS Duration 76 ms Q-T Interval 364 ms QTC Calculation(Bazett) 442 ms P Fordyce 16 degrees R Fordyce 46 degrees T Fordyce 148 degrees Normal sinus rhythm ST & T wave abnormality, consider later al ischemia Mild ST elevation in III Abnormal ECG No previous ECGs available Confirmed by MD LARSEN YOCHAI ([id number] ) on 03/29/2020 6:46:20 AM Procedure Note Interface, External Ris In - 03/29/2020 6:46 AM CDT Ventricular Rate 89 BPM Atrial Rate 89 BPM P-R Interval 132 ms QRS Duration 76 ms Q-T Interval 364 ms QTC Calculation(Bazett) 442 ms P Fordyce 16 degrees R Ford[place] 46 degrees T [place] 148 degrees Normal sinus rhythm ST & T wave abnormality, consider lateral ischemia Mild ST elevation in III Abnormal ECG No previous ECGs available Confirmed by MD LARSEN YOCHAI ([id number]) on 03/29/2020 6:46:20 AM Performing Organization Address City/State/Zipcode Ph one Number GE MUSE * 2D Echo W/Doppler(CW/PW/Color) (03/26/2020 2:00 PM CDT) Ejection Fraction [facility] ECHO [facility] Specimen Narrative Performed At Transthoracic Echocardiography Report (TTE) [facility] ECH O HEARTLAB Demographics 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 Clinical History HGB 8.7 HCT 26.8 % CAD, DM, HLD, HTN s/p CABG (03/22/2020) Contrast Medium: Definity. Amount - 2 m l Height: 61 inches Weight: 83.01 kg (183 lbs) BSA: 1.82 m^2 BMI: 34.58 kg/m^2 HR: 79 bpm BP: 168/70 mmHg Summary 1. Normal LV size. Hyperdynamic LV func tion. LVEF is > 70%. Mild septal hypertrophy noted 2. Diastology: Grade 2 diastolic dysfun ction 3. Normal RV size and function 4. No significant valvular heart diseas e 5. Trace TR. EStimated PASP is 32 + est imated RAP 6. No pericardial effusion Previous Study In comparison with the prior exam 020 the following changes are noted: patient has undergone ACB .There is now Grade 2 diastolic dysfunction Signature Findings Technical Quality: Technically adequate exam. Left Ventricle LV endoc ardium is adequately visualized with IV ultrasound enhancing agent. The left ventricle is chamber size (by vol index) is normal (female - LVED vol - 29-61ml/m2). Mild septal hypertrophy is present. Septal motion is abnormal, likely related to prior cardiac surgery . The other segments are hyperdynamic. Global LV systolic function hyperdynamic . LVEF by Rosenthal's method of disk assessment is increased (>70%) . Grade 2 diastolic dysfunction (moderately increased LA pressure). Left AtriumLA s ize is severely enlarged (>48 ml/m2) . Right VentricleRV chamb er size appears normal by limited views . Global RV systolic function is mildly reduced . Right Atrium RA siz e is normal. Aortic Valve Mild A oV cusp thickening. No evidence of aortic regurgitation. Mitral Valve Mild m itral annular calcification. Mild MV leaflet thickening. Tricuspid ValveTV struc ture is normal. Trace tricuspid regurgitation. Estimated peak systolic PA pressure is 32 mmHg + RA pressure. (RA pressure indeterminate on this exam) Pulmonic Valve Normal P V structure and function by limited views and Doppler. Mild pulmonary regurgitation. Aorta Aortic root size (SInus of Valsalva diameter) is normal . PericardiumNo p ericardial effusion is visualized. IVC/SVC/PA/PV/PleuralThe inferior v fang cava is not visualized. Chambers/Structures Left Atrium LA Volume: 92.18 ml LA Area: 25.6 cm^2 LA Vol. Index: 51 ml/m^2 Left Ventricle LVIDd: 4.24 cm LVIDs: 2.27 cm LV Septum Diastolic: 1.28 cm LV PW Diastolic: 1.1 cm LV FS: 46.5 % LVEDV Rosenthal's:90.95 ml LVESV Rosenthal's:26.74 ml LVEDVI: 50 ml/m^2 LVEF Rosenthal's: 70.6 % LVESVI: 15 ml/m^2 LVOT Diameter: 1.91 cm Aorta Ao Root S of Maliha.: 2.82 cm Doppler/Quantitative Measurements Mitral Valve MV Peak E-Wave: 1.21 m/s MV Peak A-Wave: 0.99 m/s E/A Ratio: 1.22 Peak Gradient: 5.9 mmHg Deceleration Time: 167.9 msec MV Edy. Peak: Tissue Doppler E' Lateral Velocity: 0.06 m/s E/E': 20.72 Aortic Valve Peak Velocity: 1.5 m/s Mean Velocity: 0.93 m/s Peak Gradient: 9.05 mmHg Mean Gradient: 4.06 mmHg AV Area (continuity): 3.02 cm^2 AV VTI: 23.46 cm AV DVI: 1.05 LVOT Peak Velocity: 1.31 m/s Peak Gradient: 6.82 mmHg Mean Velocity: 0.78 m/s Mean Gradient: 3.08 mmHg LVOT Diameter: 1.91 cm LVOT VTI: 24.71 cm LVOT Area: 2.87 cm^2 LVOT SV:70.76 ml LVOT CO: 5.59 l/min LVOT CI: 3.07 l/min/m^2 Tricuspid Valve TR Velocity: 2.86 m/s TR Gradient: 32.6 mmHg Procedure Note Interface, External Ris In - 03/26/2020 4:13 PM CDT Transthoracic Echocardiography Report (TTE) Demographics Patient Name JOVON RHODES Date of Study 03/26/2020 Gender Female Visit Number [id number] Race Room Number 1114 Number Date of 1955 Referring Physician Demarco Carter MD Age 64 year(s) Wind Field Service Manager Norma Carroll, [facility] Rim Turning Finisher Regina Quiñones, Interpreting Kendrick Coles MD [facility] Physician Procedure Type of Study TTE procedure:2DECHO W DOPPLER(CW/PW/COLOR) (Routine) Indications:Evaluation of Ventricular function post ACS. Clinical History HGB 8.7 HCT 26.8 % CAD, DM, HLD, HTN s/p CABG (03/22/2020) Contrast Medium: Definity. Amount - 2 ml Height: 61 inches Weight: 83.01 kg (183 lbs) BSA: 1.82 m^2 BMI: 34.58 kg/m^2 HR: 79 bpm BP: 168/70 mmHg Summary 1. Normal LV size. Hyperdynamic LV function. LVEF is > 70%. Mild septal hypertrophy noted 2. Diastology: Grade 2 diastolic dysfunction 3. Normal RV size and function 4. No significant valvular heart disease 5. Trace TR. EStimated PASP is 32 + estimated RAP 6. No pericardial effusion Previous Study In comparison with the prior exam 03/21/2020 the following changes are noted: patient has undergone ACB .There is now Grade 2 diastolic dysfunction Signature Findings Technical Quality: Technically adequate exam. Left Ventricle LV endocardium is adequately visualized with IV ultrasound enhancing agent. The left ventricle is chamber size (by vol index) is normal (female - LVED vol - 29-61ml/m2). Mild septal hypertrophy is present. Septal motion is abnormal, likely related to prior cardiac surgery . The other segments are hyperdynamic. Global LV systolic function hyperdynamic . LVEF by Rosenthal's method of disk assessment is increased (>70%) . Grade 2 diastolic dysfunction (moderately increased LA pressure). Left Atrium LA size is severely enlarged (>48 ml/m2) . Right Ventricle RV chamber size appears normal by limited views . Global RV systolic function is mildly reduced . Right Atrium RA size is normal. Aortic Valve Mild AoV cusp thickening. No evidence of aortic regurgitation. Mitral Valve Mild mitral annular calcification. Mild MV leaflet thickening. Tricuspid Valve TV structure is normal. Trace tricuspid regurgitation. Estimated peak systolic PA pressure is 32 mmHg + RA pressure. (RA pressure indeterminate on this exam) Pulmonic Valve Normal PV structure and function by limited views and Doppler. Mild pulmonary regurgitation. Aorta Aortic root size (SInus of Valsalva diameter) is normal . Pericardium No pericardial effusion is visualized. IVC/SVC/PA/PV/Pleural The inferior vena cava is not visualized. Chambers/Structures Left Atrium LA Volume: 92.18 ml LA Area: 25.6 cm^2 LA Vol. Index: 51 ml/m^2 Left Ventricle LVIDd: 4.24 cm LVIDs: 2.27 cm LV Septum Diastolic: 1.28 cm LV PW Diastolic: 1.1 cm LV FS: 46.5 % LVEDV Rosenthal's:90.95 ml LVESV Rosenthal's:26.74 ml LVEDVI: 50 ml/m^2 LVEF Rosenthal's: 70.6 % LVESVI: 15 ml/m^2 LVOT Diameter: 1.91 cm Aorta Ao Root S of Maliha.: 2.82 cm Doppler/Quantitative Measurements Mitral Valve MV Peak E-Wave: 1.21 m/s MV Peak A-Wave: 0.99 m/s E/A Ratio: 1.22 Peak Gradient: 5.9 mmHg Deceleration Time: 167.9 msec MV Edy. Peak: Tissue Doppler E' Lateral Velocity: 0.06 m/s E/E': 20.72 Aortic Valve Peak Velocity: 1.5 m/s Mean Velocity: 0.93 m/s Peak Gradient: 9.05 mmHg Mean Gradient: 4.06 mmHg AV Area (continuity): 3.02 cm^2 AV VTI: 23.46 cm AV DVI: 1.05 LVOT Peak Velocity: 1.31 m/s Peak Gradient: 6.82 mmHg Mean Velocity: 0.78 m/s Mean Gradient: 3.08 mmHg LVOT Diameter: 1.91 cm LVOT VTI: 24.71 cm LVOT Area: 2.87 cm^2 LVOT SV:70.76 ml LVOT CO: 5.59 l/min LVOT CI: 3.07 l/min/m^2 Tricuspid Valve TR Velocity: 2.86 m/s TR Gradient: 32.6 mmHg Performing Organization Address City/State/Zipcode Ph one Number [facility] CP[facility] * XR chest 1 view portable / bedside (03/26/2020 4:45 AM CDT) Only the most recent of 7 results within the time period is included. Specimen Narrative Performed At FINAL REPORT [facility] RAD, CHEST, 1 VIEW, NON DEPT INDICATION: s/p ACB COMPARISON: Prior day's exam FINDINGS: Portable frontal view of the chest. IMPRESSION: Support Lines: None. Lungs and pleura: Hypoinflated lungs ac centuating central vascular structures and interstitial markings. N o lobar consolidation or effusion. No pneumothorax. Heart and mediastinum: Stable contours. Stable surgical changes. Additional findings: None. Signed: JR Darling Robert MD Report Verified Date/Time: 0 07:12:04 Reading Location: [facility] gy Reading Room Procedure Note Interface, External Ris In - 03/26/2020 7:14 AM CDT FINAL REPORT RAD, CHEST, 1 VIEW, NON DEPT INDICATION: s/p ACB COMPARISON: Prior day's exam FINDINGS: Portable frontal view of the chest. IMPRESSION: Support Lines: None. Lungs and pleura: Hypoinflated lungs accentuating central vascular structures and interstitial markings. No lobar consolidation or effusion. No pneumothorax. Heart and mediastinum: Stable contours. Stable surgical changes. Additional findings: None. Signed: JR Darling Robert MD Report Verified Date/Time: 03/26/2020 07:12:04 Reading Location: [facility] Radiology Reading Room Performing Organization Address City/[facility]/Zipcode Ph one Number GE RIS * Phosphorus (03/25/2020 3:24 AM CDT) Only the most recent of 5 results within the time period is included. Phosphorus 1.6 (L) 2.3 - 4.7 mg/dL [facility] Specimen Blood Narrative Performed At Yeast Stacker ID - GALAP [facility] Performing Organization Address City/[facility]/Zipcode Ph one Number [facility] [address], [place] [address] MED[facility]ENTER * CBC with platelet count + automated diff (03/25/2020 3:23 AM CDT) Only the most recent of 5 results within the time period is included. WBC 15.1 (H) 3.5 - 10.5 K/L [facility] RBC 2.79 (L) 3.93 - 5.22 M/L [facility] Hemoglobin 8.6 (L) 11.2 - 15.7 GM/DL [facility] Hematocrit 25.8 (L) 34.1 - 44.9 % [facility] MCV 92.5 79.4 - 94.8 fL [facility] MCH 30.8 25.6 - 32.2 pg [facility] MCHC 33.3 32.2 - 35.5 GM/DL [facility] RDW 14.0 11.7 - 14.4 % [facility] Platelets 123 (L) 150 - 450 K/CU MM [facility] MPV 11.1 9.4 - 12.3 fL [facility] nRBC 0 0 - 0 /100 WBC [facility] % Neutros 75 % [facility] % Lymphs 14 % [facility] % Monos 10 % [facility] % Eos 1 % [facility] % Baso 0 % [facility] # Neutros 11.23 (H) 1.56 - 6.13 K/L [facility] # Lymphs 2.08 1.18 - 3.74 K/L [facility] # Monos 1.49 (H) 0.24 - 0.36 K/L [facility] # Eos 0.10 0.04 - 0.36 K/L [facility] # Baso 0.05 0.01 - 0.08 K/L [facility] Immature 1 0 - 1 % [facility] Granulocytes-Relative [facility] Specimen Blood Performing Organization Address City/[facility] Ph one Number [place] [phone] * TRANSFUSION SERVICE REPORT - SCAN (03/24/2020 6:03 PM CDT) Only the most recent of 3 results within the time period is included. Narrative Performed At This result has an attachment that is n ot available. * Calcium, Ionized (03/24/2020 3:02 AM CDT) Only the most recent of 6 results within the time period is included. Calcium, Ion 1.15 1.12 - 1.27 mmol/L [facility] pH, Blood 7.38 [facility] Specimen Blood Performing Organization Address City/[facility] one Number [place] [phone] [place] [address] * Prepare RBC (03/23/2020 11:54 PM CDT) CROSSMATCH COMPATIBLE SAFETRACE TX Unit ABO A Pos SAFETRACE TX UNIT NUMBER [id number] SAFETRACE TX Status RETURNED FROM ISSUE SAFETRACE TX Blood Bank Product RED BLOOD CELLS SAFETRACE TX PRODUCT CODE [id number] SAFETRACE TX CROSSMATCH COMPATIBLE SAFETRACE TX Unit ABO A Pos SAFETRACE TX UNIT NUMBER [id number] SAFETRACE TX Status RETURNED FROM ISSUE SAFETRACE TX Blood Bank Product RED BLOOD CELLS SAFETRACE TX PRODUCT CODE [id number] SAFETRACE TX CROSSMATCH COMPATIBLE SAFETRACE TX Unit ABO A Pos SAFETRACE TX UNIT NUMBER [id number] SAFETRACE TX Status RETURNED FROM ISSUE SAFETRACE TX Blood Bank Product RED BLOOD CELLS SAFETRACE TX PRODUCT CODE [id number] SAFETRACE TX CROSSMATCH COMPATIBLE SAFETRACE TX Unit ABO A Pos SAFETRACE TX UNIT NUMBER [id number] SAFETRACE TX Status TX_TIMEINCHART SAFETRACE TX Blood Bank Product RED BLOOD CELLS SAFETRACE TX PRODUCT CODE [id number] SAFETRACE TX Performing Organization Address [facility] one Number SAFETRACE [place] * Potassium-Stat Lab (03/23/2020 7:44 PM CDT) Only the most recent of 6 results within the time period is included. Potassium 3.6 3.6 - 5.5 meq/L [facility] Specimen Blood, Arterial Performing Organization Address [facility] one [place] [address] [phone] * Sodium Na-Stat Lab (03/23/2020 7:44 PM CDT) Only the most recent of 6 results within the time period is included. Sodium 131 (L) 136 - 145 meq/L [facility] Specimen Blood, Arterial Performing Organization Address [facility] one [place] [address] [address] [phone] [address] * Glucose-Stat Lab (03/23/2020 7:44 PM CDT) Only the most recent of 6 results within the time period is included. Glucose 342 (H) 70 - 110 mg/dL [facility] Specimen Blood, Arterial Performing Organization Address City/[facility] Ph one Number [place] [address] [facility] * HGB/HCT (H&H)-Stat Lab (03/23/2020 7:44 PM CDT) Only the most recent of 6 results within the time period is included. Hemoglobin 8.5 (L) 12.0 - 15.0 g/dL [facility] Hematocrit 25.0 (L) 36.0 - 45.0 % [facility] Specimen Blood, Arterial Performing Organization Address [facility] one Number [place] [address] [phone] [place] [address] * Blood gas, arterial (03/23/2020 7:44 PM CDT) Only the most recent of 9 results within the time period is included. pH, Arterial 7.42 7.35 - 7.45 [facility] pCO2, Arterial 39 35 - 45 mmHg [facility] pO2, Arterial 122 (H) 80 - 90 mmHg [facility] O2 Sat, Arterial 98.5 (H) 96.0 - 97.0 % [facility] HCO3, Arterial 25 21 - 29 mmol/L [facility] Base Excess, Arterial 0.5 -2.0 - 3.0 mmol/L [facility] Patient Temperature 37.1 C [facility] FIO2 36.0 % [facility] Specimen Blood, Arterial Performing Organization Address City/[facility] Ph one Number [place] [address] [facility] * Oxygen saturation, measured (03/22/2020 9:37 PM CDT) Only the most recent of 2 results within the time period is included. O2 Saturation (Measured) 70.7 % [facility] Specimen Blood Performing Organization Address [facility] one Number [address] [phone] [place] [address] * Lactic Acid, Arterial (03/22/2020 9:36 PM CDT) Only the most recent of 2 results within the time period is included. Lactate, Art 1.2 0.5 - 2.2 mmol/L [facility] Specimen Blood, Arterial Narrative Performed At Yeast Stacker ID - DB [facility] Performing Organization Address [facility] one Number [place] [phone] [place] [address] * aPTT (03/22/2020 9:36 PM CDT) Only the most recent of 9 results within the time period is included. PTT 46.0 (H) 22.5 - 36.0 seconds [facility] Specimen Blood Performing Organization Address [facility] one Number [place] [address] [address] [phone] [place] [address] * Prothromin time/INR (03/22/2020 9:36 PM CDT) Only the most recent of 4 results within the time period is included. Protime 17.5 (H) 11.9 - 14.2 seconds [facility] INR 1.5 <=5.9 [facility] Specimen Blood Narrative Performed At Effective 02/12/2019: PT Reference Range Change [facility] New: 11.9-14.2Previous: 11.7-14.7 [facility] MEDICAL CE NTER RECOMMENDED COUMADIN/WARFARIN INR THERA PY RANGES STANDARD DOSE: 2.0-3.0Includes: PRO PHYLAXIS for venous thrombosis, systemic embolization; TREATMENT for venous thro mbosis and/or pulmonary embolus. HIGH RISK: Target INR is 2.5-3.5 for pa bhumika wiht mechanical heart valves. Performing Organization Address [facility] one Number [address] 0 [phone] [place] [address] * Fibrinogen (03/22/2020 9:36 PM CDT) Only the most recent of 2 results within the time period is included. Fibrinogen 215 (L) 225 - 434 mg/dl [facility] Specimen Blood Performing Organization Address [facility] Ph one Number [address] [address] [facility] * POC ACTIVATED CLOTTING TIME (03/22/2020 1:22 PM CDT) Only the most recent of 6 results within the time period is included. Activated Clotting Time 109Comment: : 74-137 seconds, sec [facility] Baseline: TESTED AT [address], [address]: Yeast Stacker/Food Packer ID = [id number] for KEKE GREEN Specimen Blood Performing Organization Address [facility] one Number [address] 0 [phone] [place] [address] * Transfuse Leuko-Red RBC (03/22/2020 12:26 PM CDT) * Blood gas, venous (03/22/2020 11:49 AM CDT) pH, Vincent 7.33 7.32 - 7.42 [facility] pCO2, Vincent 43 41 - 51 mmHg [facility] pO2, Vincent 36 25 - 40 mmHg [facility] O2 Sat, Vincent 77.6 (H) 40.0 - 70.0 % [facility] HCO3, Vincent 23 21 - 29 mmol/L [facility] Base Excess, Vincent -3.2 (L) -2.0 - 3.0 mmol/L [facility] Patient Temperature 33.1 C [facility] FIO2 60.0 % [facility] Specimen Blood Performing Organization Address City/State/Zipcode Ph one Number [facility] [address], [place] [address] MEDICAL CENTER * ANA (03/22/2020 9:31 AM CDT) Narrative Performed At Olga Fritz MD 03/22/2020 1:53 PM ANA Date: 03/22/2020 8:30 AM Sex: Male Locati on: OR Requesting Physician: Demarco Carter MD Examiner: Olga Fritz MD Xu, Wen Zhu Indication: CABGIntubat edSedated Patient screened for esoph disease: Yes Insertion: easy Probe Type: multiplane Modalities: 2D, CFM, CWD and PWD Aorta Size Dissection Plaque Thick Plaq ue Mobile Ascending Ao normal No Ao Arch normal No Descending Ao normal No 3mm+ No Pre Intervention Summary: Aorta: No ane urysm, no dissection, no mobile plaques AV: trileaflet morphology, No aortic st enosis, No aortic regurgitation LV: Normal chamber size , Moderate LVH, normal systolic function (EF 65% by qualitative assessment), No RWMA, no thrombus MV: normal morphology, Trace mitral reg urgitation, No mitral stenosis (mean gradient 2mmHg) LA: no BEV thrombus, normal size and fu nction PV: limited visualization RV: Mildly dilated chamber, Normal func tion, no thrombus TV: normal morphology, No tricuspid reg urgitation RA: no thrombus No PFO by color dopper flow Grade II Diastolic dysfunction All findings communicated to surgical t eam. Post Intervention Follow-up Study: no c hange Navajo Valve Fxn: No change Post Intervention Summary:No change from previous echo;LVEF appears unchanged, 65% by qualitative assessmen t;No regional wall motion abnormalities.RV normal size and fu nction.No aortic dissection. Procedure Note Olga Fritz MD - 03/22/2020 9:31 AM CDT ANA Date: 03/22/2020 8:30 AM Sex: Male Location: OR Requesting Physician: Demarco Carter MD Examiner: Olga Fritz MD Xu, Wen Zhu Indication: CABG Intubated Sedated Patient screened for esoph disease: Yes Insertion: easy Probe Type: multiplane Modalities: 2D, CFM, CWD and PWD Aorta Size Dissection Plaque Thick Plaque Mobile Ascending Ao normal No Ao Arch normal No Descending Ao normal No 3mm+ No Pre Intervention Summary: Aorta: No aneurysm, no dissection, no mobile plaques AV: trileaflet morphology, No aortic stenosis, No aortic regurgitation LV: Normal chamber size , Moderate LVH, normal systolic function (EF 65% by qualitative assessment), No RWMA, no thrombus MV: normal morphology, Trace mitral regurgitation, No mitral stenosis (mean gradient 2mmHg) LA: no BEV thrombus, normal size and function PV: limited visualization RV: Mildly dilated chamber, Normal function, no thrombus TV: normal morphology, No tricuspid regurgitation RA: no thrombus No PFO by color dopper flow Grade II Diastolic dysfunction All findings communicated to surgical team. Post Intervention Follow-up Study: no change Navajo Valve Fxn: No change Post Intervention Summary: No change from previous echo; LVEF appears unchanged, 65% by qualitative assessment; No regional wall motion abnormalities. RV normal size and function. No aortic dissection. * Hemoglobin A1c (03/22/2020 5:08 AM CDT) Only the most recent of 2 results within the time period is included. Hemoglobin A1C 9.1 (H) 4.3 - 6.1 % [facility] Specimen Blood Performing Organization Address City/State/Zipcode Ph one Number [address] [address] MEDICAL CENTER * Comprehensive metabolic panel (03/22/2020 5:08 AM CDT) Protein, Total 6.8 6.0 - 8.3 gm/dL [facility] Albumin 3.8 3.5 - 5.0 g/dL [facility] Alkaline Phosphatase 61 40 - 150 U/L [facility] Total Bilirubin 0.3 0.2 - 1.2 mg/dL [facility] Sodium 135 (L) 136 - 145 meq/L [facility] Potassium 4.1 3.5 - 5.1 meq/L [facility] Chloride 100 98 - 107 meq/L [facility] CO2 28 22 - 29 meq/L [facility] BUN 15 7 - 21 mg/dL [facility] Creatinine 0.91 0.57 - 1.25 mg/dL [facility] Glucose 257 (H) 70 - 105 mg/dL [facility] Calcium 9.1 8.4 - 10.2 mg/dL [facility] AST 32 5 - 34 U/L [facility] ALT 63 (H) 6 - 55 U/L [facility] EGFR Comment: INSUFFICIENT CLINICAL [facility] DATA TO CALCULATE ESTIMATED [facility] GFR. Specimen Blood Narrative Performed At Yeast Stacker ID - PIAYA L [facility] Performing Organization Address City/[facility] Ph one [place] [address] [facility] * ABORH, manual (03/21/2020 12:30 PM CDT) ABO Grouping A [facility] Rh Factor POS [facility] Specimen Blood Performing Organization Address City/[facility] [place] [place] [address] [facility] * Type and screen, automated (03/21/2020 12:15 PM CDT) ABO/RH AUTOMATED (BEAKER) A POSITIVE [facility] Ab Scrn NEGATIVE [facility] Specimen Blood Performing Organization Address City/[facility] Ph one Number [facility] [address] [place] [address] MEDICAL CENTER * SARS-CoV2/RT-PCR (Asymptomatic ONLY) (03/21/2020 10:32 AM CDT) Only the most recent of 2 results within the time period is included. SARS-COV2/RT-PCR Negative Not Detected, Negative [facility] SARS-COV-2 PERFORMING LAB [facility] Specimen Other Narrative Performed At Negative result for this test determine s that SARS-CoV-2 RNA was not present in [facility] the specimen above the Limit of Detecti on (LOD).However, Negative results do [facility] not preclude SARS-CoV-2 infection and s hould not be used as the sole basis for treatment or patient management decisio ns. Negative results must be combined with clinical observations, patient his tory, and epidemiological information. A false negative result may occur if a sp ecimen is improperly collected, transported or handled.A false nega tive result should be considered if patient's recent exposures or clinical presentation indicate that COVID-19 (SARS-CoV-2) is likely and diagnostic t ests for other causes of illness are negative.Re-testing should be consi dered in cases of suspected false negatives. The limit of detection for this assay i s 800 copies/mL. This SARS CoV-2 test is a real-time RT- PCR test intended for the qualitative detection of nucleic acid from SARS-CoV -2 in a nasopharyngeal swab specimen collected from individuals suspected of COVID-19 by their healthcare provider. This test has not been Food and Drug Ad ministration (FDA) cleared or approved.This is a modified version of an approved Emergency Use Authorization (EUA) and is in the proce ss of review by the FDA. Once authorized by the FDA, the issued EUA w ill be effective until the declaration that circumstances exist justifying the authorization of the emergency use of in vitro diagnostic tests for detection an d/or diagnosis of COVID-19 is terminated under Section 564(b)(2) of the Act or t he EUA is revoked under Section 564(g) of the Act. Fact Sheet for Healthcare Providers: https://www.[employer]/sites/default/files/product/documents/Fact_Sheet_HC_Provi bhpa_Puew_ZBVW-OhH-5.pdf Fact Sheet for Healthcare Patients: https://www.[employer]/sites/default/files/product/documents/Fact_Sheet_Patients _Bqyh_HGLR-HtP-1.pdf Performing Laboratory: [place] [address] Performing Organization Address City/State/Zipcode Ph one Number [place] [address] [facility] * 2D Echo W/Doppler(CW/PW/Color) (03/21/2020 9:31 AM CDT) Ejection Fraction [facility] ECHO [facility]ART[facility] Specimen Narrative Performed At Transthoracic Echocardiography Report (TTE) [facility] ECH O HEARTLAB [facility]ographics [facility] Patient NameJOVON RHODES of Study03/21/2020 Female Visit [id number] [place] [id number] Number Date of 1955 Referring 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 Clinical History HGB 12.6 HCT 39.1 % CAD DIABETES Contrast Medium: Definity. Amount - 2 m l Height: 61 inches Weight: 81.65 kg (180 lbs) BSA: 1.81 m^2 BMI: 34.01 kg/m^2 HR: 85 bpm BP: 195/84 mmHg Summary The left ventricle is chamber size (by PSLAX dimension) is normal (female - LVIDd 3.8-5.2cm) . All of the LV segm ents contract normally . Estimated LVEF by qualitative assessment is zabrina l (>60%) . Grade 1 diastolic dysfunction (impaired relaxation and low-normal LA pressure). Unable to estimate peak systolic PA pre ssure; inadequate TR velocity signal. Previous Study No prior exam available for comparison. Signature Findings Left Ventricle The left ventricle is chamber size (by PSLAX dimension) is normal (female - LVIDd 3.8-5.2cm) . No evidence of LV hypertrophy. All of the LV segments contract normally . Global LV systolic function normal . Estimated LVEF by qualitative assessment is normal (>60%) . LV endocardium is well visualized with IV ultrasound enhancing agent. Grade 1 diastolic dysfunction (impaired relaxation and low-normal LA pressure). Left AtriumLA s ize is mildly enlarged (35-41 ml/m2) . Right VentricleThe righ t ventricular chamber size and systolic function are within normal limits. Right Atrium RA cav ity size is normal . Aortic Valve Normal AoV structure and function. Mitral Valve Mild M V leaflet thickening. Mild mitral annular calcification. Trace mitral regurgitation. Tricuspid ValveUnable t o estimate peak systolic PA pressure; inadequate TR velocity signal. Pulmonic Valve PV is no t well visualized; function appears normal by Doppler visualized. Aorta Aortic root size (SInus of Valsalva diameter) is normal . PericardiumNo s ignificant pericardial effusion is visualized. IVC/SVC/PA/PV/PleuralThe right uppe r pulmonary vein (RUPV) is normal . The estimated RA pressure by IVC dynamics 0-5mmHg . Chambers/Structures Left Atrium LA Volume: 67.37 ml LA Area: 21.7 cm^2 LA Vol. Index: 37 ml/m^2 Left Ventricle LVIDd: 4.02 cm LVEDV:83.83 ml LV Septum Diastolic: 1.07 cm LV PW Diastolic: 1.08 cm LVOT Diameter: 1.97 cm Right Ventricle RVOT VTI: 20.33 cm TAPSE: 1.65 cm Aorta Ao Root S of Maliha.: 2.83 cm Doppler/Quantitative Measurements Mitral Valve MV Peak E-Wave: 0.95 m/s MV Peak A-Wave: 1.13 m/s E/A Ratio: 0.84 Peak Gradient: 3.61 mmHg Deceleration Time: 249.4 msec MV Edy. Peak: Tissue Doppler E' Septal Velocity: 0.06 m/s E' Lateral Velocity: 0.06 m/s Aortic Valve Peak Velocity: 1.11 m/s Mean Velocity: 0.8 m/s Peak Gradient: 4.9 mmHg Mean Gradient: 2.79 mmHg AV Area (continuity): 2.76 cm^2 AV VTI: 27.56 cm AV DVI: 0.91 LVOT Peak Velocity: 0.99 m/s Peak Gradient: 3.93 mmHg Mean Velocity: 0.67 m/s Mean Gradient: 2.07 mmHg LVOT Diameter: 1.97 cm LVOT VTI: 24.95 cm LVOT Area: 3.05 cm^2 LVOT SV:76.01 ml LVOT CO: 6.46 l/min LVOT CI: 3.57 l/min/m^2 Procedure Note Interface, External Ris In - 03/21/2020 2:00 PM CDT Transthoracic Echocardiography Report (TTE) Demographics Patient Name JOVON RHODES Date of Study 03/21/2020 Gender Female Visit Number [id number] Race Room Number 1034 Number Date of 1955 Referring Physician Age 64 year(s) [employer]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 Clinical History HGB 12.6 HCT 39.1 % CAD DIABETES Contrast Medium: Definity. Amount - 2 ml Height: 61 inches Weight: 81.65 kg (180 lbs) BSA: 1.81 m^2 BMI: 34.01 kg/m^2 HR: 85 bpm BP: 195/84 mmHg Summary The left ventricle is chamber size (by PSLAX dimension) is normal (female - LVIDd 3.8-5.2cm) . All of the LV segments contract normally . Estimated LVEF by qualitative assessment is normal (>60%) . Grade 1 diastolic dysfunction (impaired relaxation and low-normal LA pressure). Unable to estimate peak systolic PA pressure; inadequate TR velocity signal. Previous Study No prior exam available for comparison. Signature Findings Left Ventricle The left ventricle is chamber size (by PSLAX dimension) is normal (female - LVIDd 3.8-5.2cm) . No evidence of LV hypertrophy. All of the LV segments contract normally . Global LV systolic function normal . Estimated LVEF by qualitative assessment is normal (>60%) . LV endocardium is well visualized with IV ultrasound enhancing agent. Grade 1 diastolic dysfunction (impaired relaxation and low-normal LA pressure). Left Atrium LA size is mildly enlarged (35-41 ml/m2) . Right Ventricle The right ventricular chamber size and systolic function are within normal limits. Right Atrium RA cavity size is normal . Aortic Valve Normal AoV structure and function. Mitral Valve Mild MV leaflet thickening. Mild mitral annular calcification. Trace mitral regurgitation. Tricuspid Valve Unable to estimate peak systolic PA pressure; inadequate TR velocity signal. Pulmonic Valve PV is not well visualized; function appears normal by Doppler visualized. Aorta Aortic root size (SInus of Valsalva diameter) is normal . Pericardium No significant pericardial effusion is visualized. IVC/SVC/PA/PV/Pleural The right upper pulmonary vein (RUPV) is normal . The estimated RA pressure by IVC dynamics 0-5mmHg . Chambers/Structures Left Atrium LA Volume: 67.37 ml LA Area: 21.7 cm^2 LA Vol. Index: 37 ml/m^2 Left Ventricle LVIDd: 4.02 cm LVEDV:83.83 ml LV Septum Diastolic: 1.07 cm LV PW Diastolic: 1.08 cm LVOT Diameter: 1.97 cm Right Ventricle RVOT VTI: 20.33 cm TAPSE: 1.65 cm Aorta Ao Root S of [place].: 2.83 cm Doppler/Quantitative Measurements Mitral Valve MV Peak E-Wave: 0.95 m/s MV Peak A-Wave: 1.13 m/s E/A Ratio: 0.84 Peak Gradient: 3.61 mmHg Deceleration Time: 249.4 msec MV Edy. Peak: Tissue Doppler E' Septal Velocity: 0.06 m/s E' Lateral Velocity: 0.06 m/s Aortic Valve Peak Velocity: 1.11 m/s Mean Velocity: 0.8 m/s Peak Gradient: 4.9 mmHg Mean Gradient: 2.79 mmHg AV Area (continuity): 2.76 cm^2 AV VTI: 27.56 cm AV DVI: 0.91 LVOT Peak Velocity: 0.99 m/s Peak Gradient: 3.93 mmHg Mean Velocity: 0.67 m/s Mean Gradient: 2.07 mmHg LVOT Diameter: 1.97 cm LVOT VTI: 24.95 cm LVOT Area: 3.05 cm^2 LVOT SV:76.01 ml LVOT CO: 6.46 l/min LVOT CI: 3.57 l/min/m^2 Performing Organization Address City/State/Zipcode Ph one Number [facility] * Hepatic function panel (03/21/2020 5:46 AM CDT) Only the most recent of 2 results within the time period is included. Protein, Total 6.3 6.0 - 8.3 gm/dL [facility] Albumin 3.5 3.5 - 5.0 g/dL [facility] Total Bilirubin 0.4 0.2 - 1.2 mg/dL [facility] Bilirubin, Direct 0.2 0.1 - 0.5 mg/dL [facility] Alkaline Phosphatase 62 40 - 150 U/L [facility] AST 39 (H) 5 - 34 U/L [facility] ALT 63 (H) 6 - 55 U/L [facility] Specimen Blood Narrative Performed At Yeast Stacker ID - SACHA C [facility] Performing Organization Address City/[facility] Ph one Number [facility] [address], [place] [address] [facility] [place] * Platelet count (03/20/2020 3:16 PM CDT) Platelets 213 150 - 450 K/CU [facility] Specimen Blood Narrative Performed At Yeast Stacker ID - [id number] [facility] Performing Organization Address [facility] Ph one Number [facility] [address], [place] [address] [facility] * CT brain without IV contrast (03/20/2020 11:22 AM CDT) Specimen Narrative Performed At FINAL REPORT [place] CT, BRAIN, WITHOUT CONTRAST, CT, CAROTI D, ANGIO, CT, CTANGIOBRAIN BRAIN CT WITHOUT CONTRAST INDICATION: Carotid stenosis, follow up pre CABG eval COMPARISON: CT head of the same date TECHNIQUE: Rapid acquisition spiral images were ob tained between the aortic arch and the cranial vertex during intraveno us contrast infusion to reconstruct axial images and angiograph ic 3D maximum intensity projections (MIP). 3-D volumetric refor matted images were created at a dedicated workstation. Precontrast im ages of the brain were also obtained. Stenosis evaluation reported in complia nce with NASCET criteria. DOSE REDUCTION: Dose modulation, iterat buffy reconstruction, and/or weight-based adjustment of the mA/kV wa s utilized to reduce the radiation dose to as low as reasonably achievable. FINDINGS: CT BRAIN: Mild global cerebral volume loss is pre sent. There is been no recent infarct or hemorrhage. Midline is zabrina l in position. No abnormal extra-axial fluid is present. There is passive expansion of the ventricular spaces. Osseous structures are intact. CTA BRAIN: There is circumferential narrowing of t he cavernous internal carotid arteries bilaterally, greater on the le ft. Of note, there is abnormal opacification at the left M1 segment, a nd with comparatively atretic middle cerebral artery branches on the left. Right middle cerebral artery is unremarkable. Anterior cerebr al arteries are normally opacified. The basilar system and poste rior cerebral arteries are intact. CTA NECK: Arch anatomy is conventional. Common ca rotid arteries demonstrate normal calibers. Calcific atheroscleros is is present bilaterally. Bifurcations. There is no flow limitati on on the right. Approximately 50% stenosis is present on the left. No poststenotic dilation is evident. Vertebral arteries are normall y patent and without origin stenosis. Left vertebral artery is slig htly dominant. Nonvascular findings: No acute findings are present within th e limits of arterial phase imaging. IMPRESSION: Chronic involutional changes without re cent infarct or hemorrhage. Approximately 50% narrowing at the left bifurcation by NASCET criteria. Atherosclerotic disease on th e right without flow limitation. 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 This represents an area of ph ysiologic risk for intermittent and sustained hypoxia. Signed: JR Darling Robert MD Report Verified Date/Time: 0 11:30:44 Reading Location: [address] Neuro Re ading Room Procedure Note Interface, External Ris In - 03/20/2020 11:43 AM CDT FINAL REPORT CT, BRAIN, WITHOUT CONTRAST, CT, CAROTID, ANGIO, CT, CTANGIO BRAIN BRAIN CT WITHOUT CONTRAST INDICATION: Carotid stenosis, follow up pre CABG eval COMPARISON: CT head of the same date TECHNIQUE: Rapid acquisition spiral images were obtained between the aortic arch and the cranial vertex during intravenous contrast infusion to reconstruct axial images and angiographic 3D maximum intensity projections (MIP). 3-D volumetric reformatted images were created at a dedicated workstation. Precontrast images of the brain were also obtained. Stenosis evaluation reported in compliance with NASCET criteria. DOSE REDUCTION: Dose modulation, iterative reconstruction, and/or weight-based adjustment of the mA/kV was utilized to reduce the radiation dose to as low as reasonably achievable. FINDINGS: CT BRAIN: Mild global cerebral volume loss is present. There is been no recent infarct or hemorrhage. Midline is normal in position. No abnormal extra-axial fluid is present. There is passive expansion of the ventricular spaces. Osseous structures are intact. CTA BRAIN: There is circumferential narrowing of the cavernous internal carotid arteries bilaterally, greater on the left. Of note, there is abnormal opacification at the left M1 segment, and with comparatively atretic middle cerebral artery branches on the left. Right middle cerebral artery is unremarkable. Anterior cerebral arteries are normally opacified. The basilar system and posterior cerebral arteries are intact. CTA NECK: Arch anatomy is conventional. Common carotid arteries demonstrate normal calibers. Calcific atherosclerosis is present bilaterally. Bifurcations. There is no flow limitation on the right. Approximately 50% stenosis is present on the left. No poststenotic dilation is evident. Vertebral arteries are normally patent and without origin stenosis. Left vertebral artery is slightly dominant. Nonvascular findings: No acute findings are present within the limits of arterial phase imaging. IMPRESSION: Chronic involutional changes without recent infarct or hemorrhage. Approximately 50% narrowing at the left bifurcation by NASCET criteria. Atherosclerotic disease on the right without flow limitation. 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 This represents an area of physiologic risk for intermittent and sustained hypoxia. Signed: JR Lisset, Umesh GILL Report Verified Date/Time: 03/20/2020 11:30:44 Reading Location: [facility] C013 Neuro Reading Room Performing Organization Address City/State/Zipcode Ph one Number [place] * CTA carotid (03/20/2020 11:22 AM CDT) Specimen Narrative Performed At FINAL REPORT [place] CT, BRAIN, WITHOUT CONTRAST, CT, CAROTI D, ANGIO, CT, CTANGIOBRAIN BRAIN CT WITHOUT CONTRAST INDICATION: Carotid stenosis, follow up pre CABG eval COMPARISON: CT head of the same date TECHNIQUE: Rapid acquisition spiral images were ob tained between the aortic arch and the cranial vertex during intraveno us contrast infusion to reconstruct axial images and angiograph ic 3D maximum intensity projections (MIP). 3-D volumetric refor matted images were created at a dedicated workstation. Precontrast im ages of the brain were also obtained. Stenosis evaluation reported in complia nce with NASCET criteria. DOSE REDUCTION: Dose modulation, iterat buffy reconstruction, and/or weight-based adjustment of the mA/kV wa s utilized to reduce the radiation dose to as low as reasonably achievable. FINDINGS: CT BRAIN: Mild global cerebral volume loss is pre sent. There is been no recent infarct or hemorrhage. Midline is zabrina l in position. No abnormal extra-axial fluid is present. There is passive expansion of the ventricular spaces. Osseous structures are intact. CTA BRAIN: There is circumferential narrowing of t he cavernous internal carotid arteries bilaterally, greater on the le ft. Of note, there is abnormal opacification at the left M1 segment, a nd with comparatively atretic middle cerebral artery branches on the left. Right middle cerebral artery is unremarkable. Anterior cerebr al arteries are normally opacified. The basilar system and poste rior cerebral arteries are intact. CTA NECK: Arch anatomy is conventional. Common ca rotid arteries demonstrate normal calibers. Calcific atheroscleros is is present bilaterally. Bifurcations. There is no flow limitati on on the right. Approximately 50% stenosis is present on the left. No poststenotic dilation is evident. Vertebral arteries are normall y patent and without origin stenosis. Left vertebral artery is slig htly dominant. Nonvascular findings: No acute findings are present within th e limits of arterial phase imaging. IMPRESSION: Chronic involutional changes without re cent infarct or hemorrhage. Approximately 50% narrowing at the left bifurcation by NASCET criteria. Atherosclerotic disease on th e right without flow limitation. 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 This represents an area of ph ysiologic risk for intermittent and sustained hypoxia. Signed: JR Lisset, Umesh GILL Report Verified Date/Time: 0 11:30:44 Reading Location: [facility] B1 C013V Neuro Re ading Room Procedure Note Interface, External Ris In - 03/20/2020 11:43 AM CDT FINAL REPORT CT, BRAIN, WITHOUT CONTRAST, CT, CAROTID, ANGIO, CT, CTANGIO BRAIN BRAIN CT WITHOUT CONTRAST INDICATION: Carotid stenosis, follow up pre CABG eval COMPARISON: CT head of the same date TECHNIQUE: Rapid acquisition spiral images were obtained between the aortic arch and the cranial vertex during intravenous contrast infusion to reconstruct axial images and angiographic 3D maximum intensity projections (MIP). 3-D volumetric reformatted images were created at a dedicated workstation. Precontrast images of the brain were also obtained. Stenosis evaluation reported in compliance with NASCET criteria. DOSE REDUCTION: Dose modulation, iterative reconstruction, and/or weight-based adjustment of the mA/kV was utilized to reduce the radiation dose to as low as reasonably achievable. FINDINGS: CT BRAIN: Mild global cerebral volume loss is present. There is been no recent infarct or hemorrhage. Midline is normal in position. No abnormal extra-axial fluid is present. There is passive expansion of the ventricular spaces. Osseous structures are intact. CTA BRAIN: There is circumferential narrowing of the cavernous internal carotid arteries bilaterally, greater on the left. Of note, there is abnormal opacification at the left M1 segment, and with comparatively atretic middle cerebral artery branches on the left. Right middle cerebral artery is unremarkable. Anterior cerebral arteries are normally opacified. The basilar system and posterior cerebral arteries are intact. CTA NECK: Arch anatomy is conventional. Common carotid arteries demonstrate normal calibers. Calcific atherosclerosis is present bilaterally. Bifurcations. There is no flow limitation on the right. Approximately 50% stenosis is present on the left. No poststenotic dilation is evident. Vertebral arteries are normally patent and without origin stenosis. Left vertebral artery is slightly dominant. Nonvascular findings: No acute findings are present within the limits of arterial phase imaging. IMPRESSION: Chronic involutional changes without recent infarct or hemorrhage. Approximately 50% narrowing at the left bifurcation by NASCET criteria. Atherosclerotic disease on the right without flow limitation. 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 This represents an area of physiologic risk for intermittent and sustained hypoxia. Signed: JR Darling Robert MD Report Verified Date/Time: 03/20/2020 11:30:44 Reading Location: [address] Neuro Reading Room Performing Organization Address City/State/Zipcode Ph one Number [place] * CTA brain (03/20/2020 11:22 AM CDT) Specimen Narrative Performed At FINAL REPORT [place] CT, BRAIN, WITHOUT CONTRAST, CT, CAROTI D, ANGIO, CT, CTANGIOBRAIN BRAIN CT WITHOUT CONTRAST INDICATION: Carotid stenosis, follow up pre CABG eval COMPARISON: CT head of the same date TECHNIQUE: Rapid acquisition spiral images were ob tained between the aortic arch and the cranial vertex during intraveno us contrast infusion to reconstruct axial images and angiograph ic 3D maximum intensity projections (MIP). 3-D volumetric refor matted images were created at a dedicated workstation. Precontrast im ages of the brain were also obtained. Stenosis evaluation reported in complia nce with NASCET criteria. DOSE REDUCTION: Dose modulation, iterat buffy reconstruction, and/or weight-based adjustment of the mA/kV wa s utilized to reduce the radiation dose to as low as reasonably achievable. FINDINGS: CT BRAIN: Mild global cerebral volume loss is pre sent. There is been no recent infarct or hemorrhage. Midline is zabrina l in position. No abnormal extra-axial fluid is present. There is passive expansion of the ventricular spaces. Osseous structures are intact. CTA BRAIN: There is circumferential narrowing of t he cavernous internal carotid arteries bilaterally, greater on the le ft. Of note, there is abnormal opacification at the left M1 segment, a nd with comparatively atretic middle cerebral artery branches on the left. Right middle cerebral artery is unremarkable. Anterior cerebr al arteries are normally opacified. The basilar system and poste rior cerebral arteries are intact. CTA NECK: Arch anatomy is conventional. Common ca rotid arteries demonstrate normal calibers. Calcific atheroscleros is is present bilaterally. Bifurcations. There is no flow limitati on on the right. Approximately 50% stenosis is present on the left. No poststenotic dilation is evident. Vertebral arteries are normall y patent and without origin stenosis. Left vertebral artery is slig htly dominant. Nonvascular findings: No acute findings are present within th e limits of arterial phase imaging. IMPRESSION: Chronic involutional changes without re cent infarct or hemorrhage. Approximately 50% narrowing at the left bifurcation by NASCET criteria. Atherosclerotic disease on th e right without flow limitation. 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 This represents an area of ph ysiologic risk for intermittent and sustained hypoxia. Signed: JR Lisset, Umesh GILL Report Verified Date/Time: 0 11:30:44 Reading Location: [facility] B1 C013V Neuro Re ading Room Procedure Note Interface, External Ris In - 03/20/2020 2:55 PM CDT FINAL REPORT CT, BRAIN, WITHOUT CONTRAST, CT, CAROTID, ANGIO, CT, CTANGIO BRAIN BRAIN CT WITHOUT CONTRAST INDICATION: Carotid stenosis, follow up pre CABG eval COMPARISON: CT head of the same date TECHNIQUE: Rapid acquisition spiral images were obtained between the aortic arch and the cranial vertex during intravenous contrast infusion to reconstruct axial images and angiographic 3D maximum intensity projections (MIP). 3-D volumetric reformatted images were created at a dedicated workstation. Precontrast images of the brain were also obtained. Stenosis evaluation reported in compliance with NASCET criteria. DOSE REDUCTION: Dose modulation, iterative reconstruction, and/or weight-based adjustment of the mA/kV was utilized to reduce the radiation dose to as low as reasonably achievable. FINDINGS: CT BRAIN: Mild global cerebral volume loss is present. There is been no recent infarct or hemorrhage. Midline is normal in position. No abnormal extra-axial fluid is present. There is passive expansion of the ventricular spaces. Osseous structures are intact. CTA BRAIN: There is circumferential narrowing of the cavernous internal carotid arteries bilaterally, greater on the left. Of note, there is abnormal opacification at the left M1 segment, and with comparatively atretic middle cerebral artery branches on the left. Right middle cerebral artery is unremarkable. Anterior cerebral arteries are normally opacified. The basilar system and posterior cerebral arteries are intact. CTA NECK: Arch anatomy is conventional. Common carotid arteries demonstrate normal calibers. Calcific atherosclerosis is present bilaterally. Bifurcations. There is no flow limitation on the right. Approximately 50% stenosis is present on the left. No poststenotic dilation is evident. Vertebral arteries are normally patent and without origin stenosis. Left vertebral artery is slightly dominant. Nonvascular findings: No acute findings are present within the limits of arterial phase imaging. IMPRESSION: Chronic involutional changes without recent infarct or hemorrhage. Approximately 50% narrowing at the left bifurcation by NASCET criteria. Atherosclerotic disease on the right without flow limitation. 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 This represents an area of physiologic risk for intermittent and sustained hypoxia. Signed: JR Lisset, Umesh GILL Report Verified Date/Time: 03/20/2020 11:30:44 Reading Location: [facility] B1 C013V Neuro Reading Room Performing Organization Address City/[facility] Ph one Number [facility] * Troponin I (03/20/2020 10:06 AM CDT) Only the most recent of 2 results within the time period is included. Troponin I 0.14 (H) 0.00 - 0.03 ng/mL [facility] Specimen Blood Narrative Performed At Troponin I (TnI) levels must be interpreted in the co ntext of the presenting [facility] symptoms and the clinical findings. Elevated TnI leve ls indicate myocardial [facility] damage, but are not specific for ischem ic heart disease. Elevated TnI levels are seen in patients with other cardiac con ditions (including myocarditis and congestive heart failure), and slight T nI elevations occur in patients with other conditions, including sepsis, silvana al failure, acidosis, acute neurological disease, and persistent tachyarrhythmia . Yeast Stacker ID - SACHA Potter Performing Organization Address [facility] one Number [place] [address] [facility] * Carotid doppler bilateral (03/20/2020 4:13 AM CDT) Ejection Fraction [facility] Specimen Impressions Performed At Right Impression [facility] 1. There is <50% diameter reduction (could not obtain 2-D measurement) in [facility] the internal carotid artery with a peak velocity of 60/16cm/sec and heterogeneous shadowing plaque. 2. There is non-occluding plaque in the external carotid artery. 3. There is non-occluding plaque in the common carotid artery. 4. The vertebral artery flow is antegra de . 5. The subclavian artery is patent with a velocity of 50cm/sec. Left Impression 1. There is <50% diameter reduction (co uld not obtain 2-D measurement) in the internal carotid artery with a peak velocity of 60/16cm/sec and heterogeneous shadowing plaque. 2. There is non-occluding plaque in the external carotid artery. 3. There is non-occluding plaque in the common carotid artery. 4. The vertebral artery flow is antegra de . 5. The subclavian artery is patent with a velocity of 144cm/sec. Conclusions Summary Carotid duplex scanning and color flow imaging were performed bilaterally. The arteries were adequately visualized . The bilateral internal carotid arteries had <50% hemodynamically insig nificant stenosis ( could not obtain 2-D measurement, bilaterally) wi th heterogeneous shadowing plaque. The vertebral artery flow was antegrade and normal bilaterally. The subclavian arteries were patent with no rmal flow bilaterally where visualized. Signature Velocities are measured in cm/s ; Diame ters are measured in cm Carotid Right Measurements + +----+----+-----+------ ------+ + + !Location !PSV !EDV !Angle! %Stenosis 2D!%Stenosis Doppler!Tortuosity ! + +----+----+-----+------ ------+ + + !Prox CCA !69!14.3!60 !! ! ! + +----+----+-----+------ ------+ + + !Dist CCA !59!14.9!60 !! ! ! + +----+----+-----+------ ------+ + + !Prox ICA !60.3!16.2!60 !!<50% ! ! + +----+----+-----+------ ------+ + + !Dist ICA !71.4!26.7!60 !! ! ! + +----+----+-----+------ ------+ + + !Prox ECA !89.5!8.08!60 !! ! ! + +----+----+-----+------ ------+ + + !Vertebral!55.3!15.5!60 !! ! ! + +----+----+-----+------ ------+ + + !Prox Subclavian!50.9!!60 !! ! ! + +----+----+-----+------ ------+ + + - There is antegrade vertebral flow noted on the right side. - Additional Measurements:ICAPSV/CC APSV 1.21.ICAEDV/CCAEDV 1.87. Carotid Left Measurements + +----+----+-----+------ ------+ + + !Location !PSV !EDV !Angle! %Stenosis 2D!%Stenosis Doppler!Tortuosity ! + +----+----+-----+------ ------+ + + !Prox CCA !63.4!11.8!60 !! ! ! + +----+----+-----+------ ------+ + + !Dist CCA !60.9!11.8!60 !! ! ! + +----+----+-----+------ ------+ + + !Prox ICA !69!23.6!60 !!<50% ! ! + +----+----+-----+------ ------+ + + !Dist ICA !75.8!24.9!60 !! ! ! + +----+----+-----+------ ------+ + + !Prox ECA !108 !10.6!60 !! ! ! + +----+----+-----+------ ------+ + + !Vertebral!83.9!26.1!60 !! ! ! + +----+----+-----+------ ------+ + + !Prox Subclavian!144 !!60 !! ! ! + +----+----+-----+------ ------+ + + - There is antegrade vertebral flow noted on the left side. - Additional Measurements:ICAPSV/CC APSV 1.24.ICAEDV/CCAEDV 2.11. Narrative Performed At [facility] - Carotid Duplex Study [facility] Demographics [facility] Patient NameJOVON RHODES Date of Study 03/20/2020 64 Visit [id number] male Date of 1955 Referring Demarco doyle, Room Number 1034 Physician [employer] Service Manager [facility] Procedure Type of Study: Cerebral: Carotid, CAROTID DOPPLER, UNRULY ATERAL. Indications for Study:Pre-Op Heart Bypa ss Surgery. Patient Status:Routine. Study Location:Portable. Technical Quality:Adequate visualizatio n. Risk Factors History of Disease + +-- --------+ + !Diagnosis!Date! Comments ! + +-- --------+ + !History/Risk Factors: !03/20/2020!Cardiac disease! ! !!HTN ! ! !!DM ! + +-- --------+ + Procedure Note Interface, External Ris In - 03/20/2020 1:22 PM CDT [facility] - Carotid Duplex Study Demographics Patient Name JOVON RHODES Date of Study 03/20/2020 Age 64 Visit Number [id number] Gender Female Accession Number [id number] Date of 1955 Referring Demarco Carter, Room Number 1034 Physician [employer] Service Manager Renee Olivares Interpreting Nia Mendez, T Physician Procedure Type of Study: Cerebral: Carotid, CAROTID DOPPLER, BILATERAL. Indications for Study:Pre-Op Heart Bypass Surgery. Patient Status:Routine. Study Location:Portable. Technical Quality:Adequate visualization. Risk Factors History of Disease + +--- -------+ + !Diagnosis !Date !Comments ! + +--- -------+ + !History/Risk Factors: !03/20/2020!Cardiac disease ! ! ! !HTN ! ! ! !DM ! + +--- -------+ + Impressions Right Impression 1. There is <50% diameter reduction (cou ld not obtain 2-D measurement) in the internal carotid artery with a peak velocity of 60/16cm/sec and heterogeneous shadowing plaque. 2. There is non-occluding plaque in the external carotid artery. 3. There is non-occluding plaque in the common carotid artery. 4. The vertebral artery flow is antegrad e . 5. The subclavian artery is patent with a velocity of 50cm/sec. Left Impression 1. There is <50% diameter reduction (cou ld not obtain 2-D measurement) in the internal carotid artery with a peak velocity of 60/16cm/sec and heterogeneous shadowing plaque. 2. There is non-occluding plaque in the external carotid artery. 3. There is non-occluding plaque in the common carotid artery. 4. The vertebral artery flow is antegrad e . 5. The subclavian artery is patent with a velocity of 144cm/sec. Conclusions Summary Carotid duplex scanning and color flow imaging were performed bilaterally. The arteries were adequately visualized. The bilateral internal carotid arteries had <50% hemodynamically insignificant stenosis ( could not obtain 2-D measurement, bilaterally) with heterogeneous shadowing plaque. The vertebral artery flow was antegrade and normal bilaterally. The subclavian arteries were patent with normal flow bilaterally where visualized. Signature Velocities are measured in cm/s ; Diameters are measured in cm Carotid Right Measurements + +----+----+-----+------- -----+ + + !Location !PSV !EDV !Angle!%Stenosis 2D!%Stenosis Doppler!Tortuosity ! + +----+----+-----+------- -----+ + + !Prox CCA !69 !14.3!60 ! ! ! ! + +----+----+-----+------- -----+ + + !Dist CCA !59 !14.9!60 ! ! ! ! + +----+----+-----+------- -----+ + + !Prox ICA !60.3!16.2!60 ! !<50% ! ! + +----+----+-----+------- -----+ + + !Dist ICA !71.4!26.7!60 ! ! ! ! + +----+----+-----+------- -----+ + + !Prox ECA !89.5!8.08!60 ! ! ! ! + +----+----+-----+------- -----+ + + !Vertebral !55.3!15.5!60 ! ! ! ! + +----+----+-----+------- -----+ + + !Prox Subclavian!50.9! !60 ! ! ! ! + +----+----+-----+------- -----+ + + - There is antegrade vertebral flow noted on the right side. - Additional Measurements:ICAPSV/CCAPSV 1.21.ICAEDV/CCAEDV 1.87. Carotid Left Measurements + +----+----+-----+------- -----+ + + !Location !PSV !EDV !Angle!%Stenosis 2D!%Stenosis Doppler!Tortuosity ! + +----+----+-----+------- -----+ + + !Prox CCA !63.4!11.8!60 ! ! ! ! + +----+----+-----+------- -----+ + + !Dist CCA !60.9!11.8!60 ! ! ! ! + +----+----+-----+------- -----+ + + !Prox ICA !69 !23.6!60 ! !<50% ! ! + +----+----+-----+------- -----+ + + !Dist ICA !75.8!24.9!60 ! ! ! ! + +----+----+-----+------- -----+ + + !Prox ECA !108 !10.6!60 ! ! ! ! + +----+----+-----+------- -----+ + + !Vertebral !83.9!26.1!60 ! ! ! ! + +----+----+-----+------- -----+ + + !Prox Subclavian!144 ! !60 ! ! ! ! + +----+----+-----+------- -----+ + + - There is antegrade vertebral flow noted on the left side. - Additional Measurements:ICAPSV/CCAPSV 1.24.ICAEDV/CCAEDV 2.11. Performing Organization Address [facility] Ph one Number [facility] * Lipid panel (03/20/2020 2:37 AM CDT) Triglycerides 108 mg/dL [facility] Cholesterol 124 mg/dL [facility] HDL 36 mg/dL [facility] LDL Calculated 66 mg/dL [facility] Specimen Blood Narrative Performed At Triglyceride Reference Range: [facility] Low Risk <150 [facility] R [id number] High Risk 200-499 Very High Risk>=500 Cholesterol Reference Range: Low Risk <200 [id number] High Risk>240 HDL Cholesterol Reference Range: Low Risk >=60 High Risk <40 LDL Cholesterol Reference Range: Optimal<100 Near [id number] [id number] [id number] Very High >=190 Yeast Stacker ID - ZHANG Shelby Performing Organization Address [facility] one Number [place] [address] [facility] after 04/06/2019 Insurance Payer Benefit Subscriber ID Type Phone Address Plan / Group [employer] xxxxxxxxxx [employer] E EXCHANGE CDC REVIEW CDC [place] [place] [id number] [facility] Advance Directives For more information, please contact: [place] [phone] Date Inactivated Comments Code Status Date Activated 03/29/2020 6:10 PM Full Code 03/22/2020 2:15 PM This code status was determined by: Patient 03/22/2020 2:15 PM Full Code 03/21/2020 7:01 AM This code status was determined by: Patient 03/21/2020 7:01 AM Full Code 03/20/2020 1:06 AM This code status was determined by: Patient
== END 2020-04-13 18:26 | DRG 863 ==
LOC: ER 12:09 → ERHOLD 14:50 → MED/SURG 20:32 → OBSVTOIN 04-08 15:04 → MED/SURG2 04-08 15:09
PROVIDERS: ADMIT Internal Medicine; ATTEND Internal Medicine
PROC: 02HV33Z Insertion of Infusion Device into Superior Vena Cava, Percutaneous Approach (ICD-10-PCS; principal; 2020-04-08)
PROC: B548ZZA Ultrasonography of Superior Vena Cava, Guidance (ICD-10-PCS; 2020-04-08)
DX: T81.41XA Infection following a procedure, superficial incisional surgical site, initial encounter (principal); Z16.12 Extended spectrum beta lactamase (ESBL) resistance; B96.20 Unspecified Escherichia coli [E. coli] as the cause of diseases classified elsewhere; I10 Essential (primary) hypertension; E10.649 Type 1 diabetes mellitus with hypoglycemia without coma; E78.5 Hyperlipidemia, unspecified; E78.00 Pure hypercholesterolemia, unspecified; Z95.1 Presence of aortocoronary bypass graft; I25.10 Atherosclerotic heart disease of native coronary artery without angina pectoris; E66.9 Obesity, unspecified; Z82.49 Family history of ischemic heart disease and other diseases of the circulatory system; Z83.3 Family history of diabetes mellitus; K80.20 Calculus of gallbladder without cholecystitis without obstruction; Z68.31 Body mass index [BMI] 31.0-31.9, adult; K59.00 Constipation, unspecified; B96.1 Klebsiella pneumoniae [K. pneumoniae] as the cause of diseases classified elsewhere; D50.9 Iron deficiency anemia, unspecified; Z11.59 Encounter for screening for other viral diseases
CPT/HCPCS: 36415; 36569; 71045; 71260; 74018; 74019; 80048; 80053; 80202; 81001; 82270; 82550; 82553; 82607; 82728; 82746; 82948; 83036; 83540; 83690; 83735; 83880; 84100; 84443; 84466; 84484; 85025; 85045; 87040; 87071; 87086; 87186; 87205; 93005; 97139; 99285; G0378; J0360; J1756; J1815; J1817; J2270; J2405; J2550; J3370; J3420; J7030; J7799; Q9967; U0002

== ENCOUNTER 2020-08-15 09:50 | Inpatient (IN) | payer OTHER ==
[~2020-08-15] VITALS: Ht 157.5 cm; Wt 84.4 kg
[~2020-08-15 09:50] MED LIST changes: +COREG3.125 MG; +FUROSEMIDE40 MG PO
[2020-08-15] MEDS ORDERED: ONDANSETRON HCL INJ 2MG/ML 2ML 2 MG/ML VIAL IV NR (10:31)
[2020-08-15] MEDS ORDERED: SODIUM CHLORIDE 0.9% 1000ML 1,000 ML IV STA ×2 (10:31→12:37)
[2020-08-15] MEDS ORDERED: PANTOPRAZOLE 40 MG 10ML VIAL IV NR (10:31)
[2020-08-15 10:48] LABS: BASOPHILS # (AUTO) 0.1 (0.0-0.1); BASOPHILS % 0.5 % (0.0-1.0); EOSINOPHILS # (AUTO) 0.1 (0.0-0.4); EOSINOPHILS % 0.4 % (0.0-6.0); HEMATOCRIT 41.1 % (34.2-44.1); HEMOGLOBIN 13.6 g/dL (12.0-16.0); LYMPHOCYTES # (AUTO) 2.1 (1.0-3.2); LYMPHOCYTES % 16.6 % (18.0-39.1); MEAN CORPUSCULAR HEMOGLOBIN 28.4 pg (28-32); MEAN CORPUSCULAR HGB CONC 33.1 g/dL (31-35); MEAN CORPUSCULAR VOLUME 85.8 fL (81-99); MONOCYTES # (AUTO) 0.5 (0.2-0.8); MONOCYTES % 3.8 % (4.4-11.3); NEUTROPHILS % 77.9 % (38.7-80.0); PLATELET COUNT 269 x10e3/uL (140-360); RED BLOOD COUNT 4.79 x10e6/uL (3.6-5.1); RED CELL DISTRIBUTION WIDTH 14.2 % (11.7-14.4)
[2020-08-15 10:56] LABS: CLARITY,URINE SL CLOUDY (CLEAR); COLOR,URINE YELLOW (YELLOW); KETONES,URINE NEGATIVE (NEGATIVE); LEUKOCYTE ESTERASE ,URINE NEGATIVE (NEGATIVE); NITRITE,URINE NEGATIVE (NEGATIVE); PROTEIN,URINE DIPSTICK NEGATIVE (NEGATIVE)
[2020-08-15 10:57] LABS: BACTERIA,URINE RARE /HPF; EPITHELIAL CELLS,URINE FEW /LPF; URINE UROBILINOGEN 0.2 mg/dL (0.2 - 1)
[2020-08-15 11:00] LABS: INR 1.04; PARTIAL THROMBOPLASTIN TIME 23.9 seconds (23.8-35.5); PROTHROMBIN TIME 14.1 seconds (11.9-14.5)
[2020-08-15 11:07] LABS: ALANINE AMINOTRANSFERASE 30 IU/L (0-55); ALBUMIN 4.4 g/dL (3.5-5.0); ALKALINE PHOSPHATASE 104 IU/L (40-150); AMYLASE 64 U/L (25-125); ANION GAP 19.4 mmol/L (8-16); BLOOD UREA NITROGEN 32 mg/dL (7-26); BUN/CREATININE RATIO 26 (6-25); CALCIUM 10.1 mg/dL (8.4-10.2); CARBON DIOXIDE 27 mmol/L (22-29); CHLORIDE 91 mmol/L (98-107); CREATINE KINASE 44 IU/L (29-168); CREATININE, SERUM 1.21 mg/dL (0.57-1.11); EST GLOMERULAR FILTRATION RATE 45 ML/MIN (60-); GLUCOSE 394 mg/dL (74-118); LIPASE 12 U/L (8-78); MAGNESIUM 1.7 MG/DL (1.3-2.1); POTASSIUM 4.4 mmol/L (3.5-5.1); SODIUM 133 mmol/L (136-145)
[2020-08-15] MEDS ORDERED: IOPAMIDOL 370 MG/ML 200 ML INFUS..BTL INJ ONE (11:22)
[2020-08-15] MEDS ORDERED: SODIUM CHLORIDE 0.9% 50ML 50 ML ONE (11:22)
[2020-08-15] MEDS ORDERED: PROMETHAZINE 12.5MG/ NACL 0.9% 12.5 MG/50 ML BAG IV ONE (12:15)
[2020-08-15] MEDS ORDERED: INSULIN LISPRO 100 UNIT/1 ML 3ML VIAL SQ NR (13:45)
[2020-08-15] MEDS ORDERED: PROMETHAZINE 12.5MG/ NACL 0.9% 12.5 MG/50 ML BAG IV PRN (13:45)
[2020-08-15] MEDS ORDERED: DEXTROSE 50% SYRINGE 50 ML IV PRN (14:00)
[2020-08-15] MEDS: PIPER-TAZ 3.375 GM 50 ML IV SCH ×2 (14:04→16:59)
[2020-08-15] MEDS: ONDANSETRON HCL INJ 2MG/ML 2ML 2 MG/ML VIAL IV PRN ×2 (14:04→21:19)
[2020-08-15] MEDS: MORPHINE SULFATE INJ 2 MG/ML SYR IV PRN ×2 (14:04→21:19)
[2020-08-15] MEDS ORDERED: HYDROCHLOROTHIA25 MG PO (15:12)
[2020-08-15] MEDS ORDERED: ASPIRIN CHEW81 MG PO (15:12)
[2020-08-15 15:59] VITALS: BP 159/90
[2020-08-15 16:07] VITALS: BP 159/90
[2020-08-15] MEDS: SODIUM CHLORIDE 0.9% 1000ML 1,000 ML IV SCH (16:08)
[2020-08-15] MEDS: INSULIN LISPRO 100 UNIT/1 ML 3ML VIAL SQ SCH ×2 (16:44→21:00)
[2020-08-15 18:14] LABS: CREATINE KINASE MB 1.8 ng/mL (0-5.0)
[2020-08-15 19:00] VITALS: BP 205/75
[2020-08-15 20:08] VITALS: BP 159/90
[2020-08-16] VITALS (8 sets, daily range): BP systolic 107–188; BP diastolic 42–65
[2020-08-16] MEDS ORDERED: METOCLOPRAMIDE HCL 10 MG/2ML VIAL IV STA (00:23)
[2020-08-16] MEDS: POTASSIUM CHLORIDE 20MEQ/100ML 100 ML IV ONE (00:30)
[2020-08-16] MEDS: LACTATED RINGER'S 1,000 ML INJ SCH (00:30)
[2020-08-16] MEDS: PANTOPRAZOLE 40 MG 10ML VIAL IV SCH ×2 (00:40→13:03)
[2020-08-16] MEDS: PIPER-TAZ 3.375 GM 50 ML IV SCH ×5 (00:40→23:32)
[2020-08-16] MEDS: SODIUM CHLORIDE 0.9% 1000ML 1,000 ML IV SCH (00:57)
[2020-08-16] MEDS: CARVEDILOL 12.5 MG TAB PO SCH ×3 (00:57→17:00)
[2020-08-16] MEDS: ACETAMINOPHEN 325 MG TAB PO PRN (01:20)
[2020-08-16] MEDS: METOCLOPRAMIDE HCL 10 MG/2ML VIAL IV SCH ×4 (06:00→23:32)
[2020-08-16 06:09] LABS: BASOPHILS % 0.2 % (0.0-1.0); HEMOGLOBIN 13.2 g/dL (12.0-16.0); LYMPHOCYTES # (AUTO) 1.8 (1.0-3.2); LYMPHOCYTES % 11.1 % (18.0-39.1); MEAN CORPUSCULAR HEMOGLOBIN 29.1 pg (28-32); MEAN CORPUSCULAR VOLUME 88.3 fL (81-99); MONOCYTES # (AUTO) 1.1 (0.2-0.8); MONOCYTES % 6.5 % (4.4-11.3); NEUTROPHILS # (AUTO) 13.3 (2.1-6.9); NEUTROPHILS % 81.6 % (38.7-80.0); PLATELET COUNT 260 x10e3/uL (140-360); RED BLOOD COUNT 4.53 x10e6/uL (3.6-5.1); RED CELL DISTRIBUTION WIDTH 14.6 % (11.7-14.4)
[2020-08-16 06:37] LABS: ALBUMIN 3.5 g/dL (3.5-5.0); ALBUMIN/GLOBULIN RATIO 0.9 (0.8-2.0); ANION GAP 15.2 mmol/L (8-16); CALCIUM 8.5 mg/dL (8.4-10.2); CREATININE, SERUM 1.2 mg/dL (0.57-1.11); POTASSIUM 4.2 mmol/L (3.5-5.1)
[2020-08-16 07:08] LABS: CREATINE KINASE MB 3.8 ng/mL (0-5.0)
[2020-08-16] MEDS: INSULIN LISPRO 100 UNIT/1 ML 3ML VIAL SQ SCH ×4 (08:02→22:37)
[2020-08-16] MEDS: ASPIRIN 81 MG CHEW TAB PO SCH (08:49)
[2020-08-16] MEDS: CLONIDINE HCL 0.2 MG TAB PO SCH ×3 (08:50→22:37)
[2020-08-16] MEDS: IRBESARTAN 150 MG TAB PO SCH (08:50)
[2020-08-16] MEDS ORDERED: ONDANSETRON HCL 4 MG ORAL DISINTEGRATING TAB PO PRN (14:30)
[2020-08-16] MEDS: ONDANSETRON HCL INJ 2MG/ML 2ML 2 MG/ML VIAL IV PRN ×2 (20:33→21:15)
[2020-08-16] MEDS: HYDRALAZINE HCL 20 MG/ML VIAL IV PRN (21:25)
[2020-08-16 21:34] LABS: BASOPHILS # (AUTO) 0.1 (0.0-0.1); BASOPHILS % 0.5 % (0.0-1.0); EOSINOPHILS % 0.3 % (0.0-6.0); HEMATOCRIT 36.8 % (34.2-44.1); LYMPHOCYTES % 12.5 % (18.0-39.1); MEAN CORPUSCULAR HEMOGLOBIN 28.7 pg (28-32); MEAN CORPUSCULAR HGB CONC 32.6 g/dL (31-35); MONOCYTES # (AUTO) 1.2 (0.2-0.8); MONOCYTES % 7.3 % (4.4-11.3); NEUTROPHILS # (AUTO) 12.4 (2.1-6.9); NEUTROPHILS % 78.6 % (38.7-80.0); PLATELET COUNT 234 x10e3/uL (140-360); RED BLOOD COUNT 4.18 x10e6/uL (3.6-5.1)
[2020-08-16 21:48] LABS: ANION GAP 15.4 mmol/L (8-16); CALCIUM 8.9 mg/dL (8.4-10.2); CREATININE, SERUM 1.04 mg/dL (0.57-1.11); POTASSIUM 3.4 mmol/L (3.5-5.1)
[2020-08-16 21:55] LABS: CREATINE KINASE MB 6.8 ng/mL (0-5.0)
[2020-08-16 22:03] LABS: AMYLASE 77 U/L (25-125); LIPASE 27 U/L (8-78)
[2020-08-16] MEDS: SIMVASTATIN 20 MG TAB PO SCH (22:37)
[2020-08-16] MEDS: ENOXAPARIN INJ 80 MG/0.8 ML SYR SC SCH (23:32)
[2020-08-16] MEDS ORDERED: MAGNESIUM/ALUMINUM/SIMETHICONE 30 ML UDC PO PRN (23:45)
[2020-08-17] VITALS (9 sets, daily range): BP systolic 112–187; BP diastolic 43–78
[2020-08-17] MEDS: POTASSIUM CHLORIDE 20MEQ/100ML 100 ML IV ONE (00:30)
[2020-08-17] MEDS: PANTOPRAZOLE 40 MG 10ML VIAL IV SCH ×2 (02:06→12:01)
[2020-08-17 06:08] LABS: FREE THYROXINE INDEX 2.3691 (1.4-3.8); THYROID STIMULATING HORMONE 0.392 uIU/mL (0.350-4.940)
[2020-08-17] MEDS: METOCLOPRAMIDE HCL 10 MG/2ML VIAL IV SCH ×3 (06:26→18:19)
[2020-08-17] MEDS: PIPER-TAZ 3.375 GM 50 ML IV SCH ×3 (06:26→18:19)
[2020-08-17] MEDS: INSULIN LISPRO 100 UNIT/1 ML 3ML VIAL SQ SCH ×4 (08:44→22:25)
[2020-08-17] MEDS: IRBESARTAN 150 MG TAB PO SCH (08:45)
[2020-08-17] MEDS: CLONIDINE HCL 0.2 MG TAB PO SCH ×3 (08:45→22:20)
[2020-08-17] MEDS: ASPIRIN 81 MG CHEW TAB PO SCH (08:45)
[2020-08-17] MEDS ORDERED: CARVEDILOL 12.5 MG TAB PO SCH (09:00)
[2020-08-17] MEDS: ENOXAPARIN INJ 80 MG/0.8 ML SYR SC SCH ×2 (09:49→22:20)
[2020-08-17] MEDS: LACTATED RINGER'S 1,000 ML INJ SCH ×2 (09:49→18:19)
[2020-08-17] MEDS: ONDANSETRON HCL INJ 2MG/ML 2ML 2 MG/ML VIAL IV PRN ×2 (12:01→19:28)
[2020-08-17] MEDS: CARVEDILOL 12.5 MG TAB PO SCH (18:20)
[2020-08-17] MEDS: SIMVASTATIN 20 MG TAB PO SCH (22:14)
[2020-08-18] VITALS (8 sets, daily range): BP systolic 111–158; BP diastolic 43–54
[2020-08-18] MEDS ORDERED: BISACODYL 10 MG SUPP PR ONE (00:15)
[2020-08-18] MEDS: PANTOPRAZOLE 40 MG 10ML VIAL IV SCH ×2 (00:48→12:47)
[2020-08-18] MEDS: LACTATED RINGER'S 1,000 ML INJ SCH (05:37)
[2020-08-18] MEDS: PIPER-TAZ 3.375 GM 50 ML IV SCH ×4 (05:58→17:55)
[2020-08-18] MEDS: METOCLOPRAMIDE HCL 10 MG/2ML VIAL IV SCH ×4 (05:58→17:55)
[2020-08-18] MEDS: ASPIRIN 81 MG CHEW TAB PO SCH (08:29)
[2020-08-18] MEDS: IRBESARTAN 150 MG TAB PO SCH (08:29)
[2020-08-18] MEDS: CLONIDINE HCL 0.2 MG TAB PO SCH ×3 (08:30→21:43)
[2020-08-18] MEDS: CARVEDILOL 12.5 MG TAB PO SCH ×2 (08:30→17:55)
[2020-08-18] MEDS: INSULIN LISPRO 100 UNIT/1 ML 3ML VIAL SQ SCH ×4 (08:31→21:00)
[2020-08-18] MEDS: ENOXAPARIN INJ 80 MG/0.8 ML SYR SC SCH (09:02)
[2020-08-18] MEDS ORDERED: HEPARIN SOD (PORCINE) 1000 UNIT/ML 30ML ONE (16:16)
[2020-08-18] MEDS ORDERED: LIDOCAINE HCL 2% LOCAL 20 ML VIAL ONE (16:17)
[2020-08-18] MEDS ORDERED: IOPAMIDOL 370 MG/ML 200 ML INFUS..BTL INJ ONE ×2 (16:17→17:11)
[2020-08-18] MEDS ORDERED: SODIUM CHLORIDE 0.9% 1000ML 1,000 ML ONE (16:17)
[2020-08-18] MEDS ORDERED: HEPARIN SOD/SOD CHLORIDE 2,000 ML ONE (16:17)
[2020-08-18] MEDS ORDERED: FENTANYL CITRATE/PF 100MCG/2 ML INJ ONE (16:34)
[2020-08-18] MEDS ORDERED: MIDAZOLAM HCL 2 MG/2 ML VIAL ONE (16:34)
[2020-08-18] MEDS ORDERED: HYDRALAZINE HCL 20 MG/ML VIAL ONE (17:18)
[2020-08-18] MEDS ORDERED: SODIUM CHLORIDE 0.9% 1000ML 1,000 ML IV SCH (17:30)
[2020-08-18] MEDS: ONDANSETRON HCL INJ 2MG/ML 2ML 2 MG/ML VIAL IV PRN (19:33)
[2020-08-18] MEDS: FUROSEMIDE INJ 10 MG/ML 4 ML VIAL IV ONE (22:56)
[2020-08-19] VITALS (9 sets, daily range): BP systolic 100–210; BP diastolic 37–71
[2020-08-19] MEDS: PANTOPRAZOLE 40 MG 10ML VIAL IV SCH ×2 (00:44→11:52)
[2020-08-19] MEDS: METOCLOPRAMIDE HCL 10 MG/2ML VIAL IV SCH ×4 (00:44→18:45)
[2020-08-19] MEDS: PIPER-TAZ 3.375 GM 50 ML IV SCH ×4 (00:44→18:45)
[2020-08-19] MEDS: FUROSEMIDE INJ 10 MG/ML 4 ML VIAL IV ONE (00:44)
[2020-08-19] MEDS ORDERED: MAGNESIUM HYDROXIDE 30 ML UDC PO ONE (02:00)
[2020-08-19] MEDS: IRBESARTAN 150 MG TAB PO SCH (07:57)
[2020-08-19] MEDS: CARVEDILOL 12.5 MG TAB PO SCH ×2 (09:00→17:00)
[2020-08-19] MEDS ORDERED: ATORVASTATIN 20 MG TAB PO SCH (09:00)
[2020-08-19] MEDS: CLONIDINE HCL 0.2 MG TAB PO SCH ×3 (09:00→22:21)
[2020-08-19] MEDS: ASPIRIN 81 MG CHEW TAB PO SCH (09:00)
[2020-08-19] MEDS: AMLODIPINE BESYLATE 5 MG TAB PO SCH (09:00)
[2020-08-19] MEDS ORDERED: ATORVASTATIN 40 MG TAB PO SCH (09:00)
[2020-08-19] MEDS: INSULIN LISPRO 100 UNIT/1 ML 3ML VIAL SQ SCH ×4 (10:02→23:27)
[2020-08-19] MEDS: FUROSEMIDE INJ 10 MG/ML 4 ML VIAL IV SCH (10:05)
[2020-08-19] MEDS: ATORVASTATIN 40 MG TAB PO SCH (22:21)
[2020-08-19] MEDS: ONDANSETRON HCL INJ 2MG/ML 2ML 2 MG/ML VIAL IV PRN (23:03)
[2020-08-19] MEDS: HYDRALAZINE HCL 20 MG/ML VIAL IV PRN (23:30)
[2020-08-20] VITALS (9 sets, daily range): BP systolic 88–181; BP diastolic 44–71
[2020-08-20] MEDS: METOCLOPRAMIDE HCL 10 MG/2ML VIAL IV SCH ×4 (00:32→17:32)
[2020-08-20] MEDS: PIPER-TAZ 3.375 GM 50 ML IV SCH ×4 (00:33→17:32)
[2020-08-20] MEDS: PANTOPRAZOLE 40 MG 10ML VIAL IV SCH ×2 (00:55→12:39)
[2020-08-20] MEDS ORDERED: MECLIZINE HCL 12.5 MG TAB PO ONE ×2 (01:15→01:30)
[2020-08-20] MEDS ORDERED: BISACODYL 10 MG SUPP PR ONE ×2 (02:00→06:30)
[2020-08-20] MEDS: ONDANSETRON HCL INJ 2MG/ML 2ML 2 MG/ML VIAL IV PRN ×2 (06:15→20:53)
[2020-08-20] MEDS: INSULIN LISPRO 100 UNIT/1 ML 3ML VIAL SQ SCH ×4 (09:52→21:37)
[2020-08-20] MEDS: FUROSEMIDE INJ 10 MG/ML 4 ML VIAL IV SCH (09:53)
[2020-08-20] MEDS: ASPIRIN 81 MG CHEW TAB PO SCH (09:53)
[2020-08-20] MEDS: IRBESARTAN 150 MG TAB PO SCH (09:53)
[2020-08-20] MEDS: CARVEDILOL 12.5 MG TAB PO SCH ×2 (09:53→17:32)
[2020-08-20] MEDS: MECLIZINE HCL 12.5 MG TAB PO SCH ×4 (09:53→23:33)
[2020-08-20] MEDS: CLONIDINE HCL 0.2 MG TAB PO SCH ×3 (09:53→20:53)
[2020-08-20] MEDS: AMLODIPINE BESYLATE 5 MG TAB PO SCH (09:53)
[2020-08-20] MEDS: ATORVASTATIN 40 MG TAB PO SCH (21:32)
[2020-08-20] MEDS ORDERED: PANTOPRAZOL 40MG/SOD CHL 0.9% 250 ML IV SCH (23:00)
[2020-08-20] MEDS ORDERED: SOD PHOSPHATE/SOD BIPHOSPHATE ENEMA 132 ML BTL PR ONE (23:15)
[2020-08-21] VITALS (9 sets, daily range): BP systolic 108–175; BP diastolic 40–85
[2020-08-21] MEDS ORDERED: SODIUM CHLORIDE 0.9% 250ML 250 ML ONE (00:20)
[2020-08-21] MEDS: PANTOPRAZOL 40MG/SOD CHL 0.9% 50 ML IV SCH ×5 (00:42→20:30)
[2020-08-21] MEDS: METOCLOPRAMIDE HCL 10 MG/2ML VIAL IV SCH ×4 (00:42→16:57)
[2020-08-21] MEDS: PIPER-TAZ 3.375 GM 50 ML IV SCH ×4 (00:42→16:57)
[2020-08-21 01:12] LABS: CLARITY,URINE CLOUDY (CLEAR); COLOR,URINE YELLOW (YELLOW); LEUKOCYTE ESTERASE ,URINE NEGATIVE (NEGATIVE); NITRITE,URINE NEGATIVE (NEGATIVE)
[2020-08-21 01:13] LABS: BACTERIA,URINE MANY /HPF; EPITHELIAL CELLS,URINE MANY /LPF; KETONES,URINE NEGATIVE (NEGATIVE); PROTEIN,URINE DIPSTICK NEGATIVE (NEGATIVE); WBC,URINE (MAN) 21-50 /HPF (0-5)
[2020-08-21] MEDS ORDERED: SOD PHOSPHATE/SOD BIPHOSPHATE ENEMA 132 ML BTL PR ONE (02:15)
[2020-08-21] MEDS ORDERED: MAGNESIUM HYDROXIDE 30 ML UDC PO ONE ×2 (03:30→07:00)
[2020-08-21 05:39] LABS: BASOPHILS % 0.3 % (0.0-1.0); EOSINOPHILS # (AUTO) 0.1 (0.0-0.4); EOSINOPHILS % 0.7 % (0.0-6.0); HEMATOCRIT 33.2 % (34.2-44.1); HEMOGLOBIN 11.3 g/dL (12.0-16.0); LYMPHOCYTES # (AUTO) 1.3 (1.0-3.2); MEAN CORPUSCULAR HEMOGLOBIN 29.3 pg (28-32); MONOCYTES % 7.3 % (4.4-11.3); NEUTROPHILS # (AUTO) 10.8 (2.1-6.9); NEUTROPHILS % 80.8 % (38.7-80.0); PLATELET COUNT 223 x10e3/uL (140-360); RED BLOOD COUNT 3.86 x10e6/uL (3.6-5.1)
[2020-08-21 06:19] LABS: ALANINE AMINOTRANSFERASE 20 IU/L (0-55); ALBUMIN 3.4 g/dL (3.5-5.0); ALBUMIN/GLOBULIN RATIO 1.1 (0.8-2.0); ALKALINE PHOSPHATASE 56 IU/L (40-150); AMYLASE 79 U/L (25-125); ANION GAP 15.2 mmol/L (8-16); BLOOD UREA NITROGEN 19 mg/dL (7-26); BUN/CREATININE RATIO 21 (6-25); CARBON DIOXIDE 28 mmol/L (22-29); CHLORIDE 98 mmol/L (98-107); CREATININE, SERUM 0.89 mg/dL (0.57-1.11); EST GLOMERULAR FILTRATION RATE > 60 ML/MIN (60-); GLUCOSE 192 mg/dL (74-118); LIPASE 27 U/L (8-78); POTASSIUM 3.2 mmol/L (3.5-5.1); SODIUM 138 mmol/L (136-145)
[2020-08-21] MEDS: INSULIN LISPRO 100 UNIT/1 ML 3ML VIAL SQ SCH ×4 (07:51→21:02)
[2020-08-21] MEDS: MECLIZINE HCL 12.5 MG TAB PO SCH ×3 (08:45→21:03)
[2020-08-21] MEDS: IRBESARTAN 150 MG TAB PO SCH (08:45)
[2020-08-21] MEDS: CARVEDILOL 12.5 MG TAB PO SCH ×2 (08:45→16:03)
[2020-08-21] MEDS: ASPIRIN 81 MG CHEW TAB PO SCH (08:45)
[2020-08-21] MEDS: FUROSEMIDE INJ 10 MG/ML 4 ML VIAL IV SCH (08:45)
[2020-08-21] MEDS: CLONIDINE HCL 0.2 MG TAB PO SCH ×3 (08:45→21:03)
[2020-08-21] MEDS: AMLODIPINE BESYLATE 5 MG TAB PO SCH (08:46)
[2020-08-21] MEDS: ONDANSETRON HCL INJ 2MG/ML 2ML 2 MG/ML VIAL IV PRN (08:48)
[2020-08-21] MEDS ORDERED: POTASSIUM CHLORIDE 20MEQ/100ML 200 ML IV ONE (14:00)
[2020-08-21] MEDS: ATORVASTATIN 40 MG TAB PO SCH (21:03)
[2020-08-21 22:18] LABS: FERRITIN 301.89 ng/mL (4.63-204.00)
[2020-08-22] VITALS (8 sets, daily range): BP systolic 98–146; BP diastolic 40–71
[2020-08-22] MEDS: PIPER-TAZ 3.375 GM 50 ML IV SCH ×5 (00:28→23:37)
[2020-08-22] MEDS: METOCLOPRAMIDE HCL 10 MG/2ML VIAL IV SCH ×5 (00:28→23:10)
[2020-08-22] MEDS: PANTOPRAZOL 40MG/SOD CHL 0.9% 50 ML IV SCH ×5 (02:00→20:31)
[2020-08-22 07:35] LABS: FERRITIN 245.32 ng/mL (4.63-204.00)
[2020-08-22] MEDS: ASPIRIN 81 MG CHEW TAB PO SCH (09:19)
[2020-08-22] MEDS: FUROSEMIDE INJ 10 MG/ML 4 ML VIAL IV SCH (09:19)
[2020-08-22] MEDS: MECLIZINE HCL 12.5 MG TAB PO SCH ×3 (09:19→20:31)
[2020-08-22] MEDS: CLONIDINE HCL 0.2 MG TAB PO SCH ×3 (09:20→20:04)
[2020-08-22] MEDS: IRBESARTAN 150 MG TAB PO SCH (09:20)
[2020-08-22] MEDS: CARVEDILOL 12.5 MG TAB PO SCH ×2 (09:20→16:58)
[2020-08-22] MEDS: AMLODIPINE BESYLATE 5 MG TAB PO SCH (09:20)
[2020-08-22] MEDS: MORPHINE SULFATE INJ 2 MG/ML SYR IV PRN (09:21)
[2020-08-22] MEDS: ONDANSETRON HCL INJ 2MG/ML 2ML 2 MG/ML VIAL IV PRN (09:21)
[2020-08-22] MEDS: INSULIN LISPRO 100 UNIT/1 ML 3ML VIAL SQ SCH ×4 (09:21→20:31)
[2020-08-22] MEDS ORDERED: DEXTROSE 5%/LACTATED RINGERS 1,000 ML IV SCH (13:15)
[2020-08-22] MEDS: LACTATED RINGER'S 1,000 ML INJ SCH (14:14)
[2020-08-22] MEDS: ATORVASTATIN 40 MG TAB PO SCH (20:31)
[2020-08-22] MEDS ORDERED: CYANOCOBALAMIN INJ 1,000 MCG/ML VIAL IM STA (22:23)
[2020-08-23] VITALS (8 sets, daily range): BP systolic 102–128; BP diastolic 46–60
[2020-08-23] MEDS: PANTOPRAZOL 40MG/SOD CHL 0.9% 50 ML IV SCH ×5 (00:52→21:35)
[2020-08-23] MEDS: LACTATED RINGER'S 1,000 ML INJ SCH ×3 (03:48→18:06)
[2020-08-23] MEDS: PIPER-TAZ 3.375 GM 50 ML IV SCH ×3 (06:12→16:37)
[2020-08-23] MEDS: METOCLOPRAMIDE HCL 10 MG/2ML VIAL IV SCH ×3 (06:12→16:37)
[2020-08-23] MEDS: INSULIN LISPRO 100 UNIT/1 ML 3ML VIAL SQ SCH ×4 (07:30→21:36)
[2020-08-23] MEDS: FUROSEMIDE INJ 10 MG/ML 4 ML VIAL IV SCH (08:30)
[2020-08-23] MEDS: CYANOCOBALAMIN INJ 1,000 MCG/ML VIAL IM SCH (08:30)
[2020-08-23] MEDS: ASPIRIN 81 MG CHEW TAB PO SCH (08:31)
[2020-08-23] MEDS: MECLIZINE HCL 12.5 MG TAB PO SCH ×3 (08:31→21:35)
[2020-08-23] MEDS: IRBESARTAN 150 MG TAB PO SCH (08:31)
[2020-08-23] MEDS: CLONIDINE HCL 0.2 MG TAB PO SCH ×3 (08:31→21:00)
[2020-08-23] MEDS: AMLODIPINE BESYLATE 5 MG TAB PO SCH (08:32)
[2020-08-23] MEDS: CARVEDILOL 12.5 MG TAB PO SCH ×2 (08:32→16:37)
[2020-08-23] MEDS ORDERED: SODIUM CHLORIDE 0.9% 250ML 250 ML ONE (20:26)
[2020-08-23] MEDS: ATORVASTATIN 40 MG TAB PO SCH (21:35)
[2020-08-24] VITALS (8 sets, daily range): BP systolic 93–135; BP diastolic 36–55
[2020-08-24] MEDS: METOCLOPRAMIDE HCL 10 MG/2ML VIAL IV SCH ×4 (00:35→17:33)
[2020-08-24] MEDS: PIPER-TAZ 3.375 GM 50 ML IV SCH ×4 (00:35→17:33)
[2020-08-24] MEDS: PANTOPRAZOL 40MG/SOD CHL 0.9% 50 ML IV SCH ×5 (03:16→22:37)
[2020-08-24] MEDS: INSULIN LISPRO 100 UNIT/1 ML 3ML VIAL SQ SCH ×4 (07:30→21:53)
[2020-08-24] MEDS: IRBESARTAN 150 MG TAB PO SCH (08:10)
[2020-08-24] MEDS: CYANOCOBALAMIN INJ 1,000 MCG/ML VIAL IM SCH (08:10)
[2020-08-24] MEDS: FUROSEMIDE INJ 10 MG/ML 4 ML VIAL IV SCH (08:10)
[2020-08-24] MEDS: CLONIDINE HCL 0.2 MG TAB PO SCH ×3 (08:10→21:00)
[2020-08-24] MEDS: MECLIZINE HCL 12.5 MG TAB PO SCH ×3 (08:10→21:15)
[2020-08-24] MEDS: ASPIRIN 81 MG CHEW TAB PO SCH (08:10)
[2020-08-24] MEDS: CARVEDILOL 12.5 MG TAB PO SCH ×2 (08:11→17:33)
[2020-08-24] MEDS: LACTATED RINGER'S 1,000 ML INJ SCH ×2 (08:38→23:46)
[2020-08-24] MEDS: AMLODIPINE BESYLATE 5 MG TAB PO SCH (09:00)
[2020-08-24] MEDS: ATORVASTATIN 40 MG TAB PO SCH (21:15)
[2020-08-25] VITALS (8 sets, daily range): BP systolic 99–127; BP diastolic 41–58
[2020-08-25] MEDS: PIPER-TAZ 3.375 GM 50 ML IV SCH ×3 (00:55→12:06)
[2020-08-25] MEDS: METOCLOPRAMIDE HCL 10 MG/2ML VIAL IV SCH ×4 (00:55→17:10)
[2020-08-25] MEDS ORDERED: CARVEDILOL12.5 MG PO (01:21)
[2020-08-25] MEDS ORDERED: MECLIZINE HCL12.5 MG PO (01:21)
[2020-08-25] MEDS ORDERED: NORVASC5 MG PO (01:21)
[2020-08-25] MEDS ORDERED: PANTOPRAZOLE SO40 MG PO (01:21)
[2020-08-25] MEDS ORDERED: LEVEMIR FL100 UNIT/1 SC (01:21)
[2020-08-25] MEDS ORDERED: ZOFRAN4 MG PO (01:21)
[2020-08-25] MEDS: PANTOPRAZOL 40MG/SOD CHL 0.9% 50 ML IV SCH ×4 (03:30→17:10)
[2020-08-25] MEDS: FUROSEMIDE INJ 10 MG/ML 4 ML VIAL IV SCH (08:59)
[2020-08-25] MEDS: AMLODIPINE BESYLATE 5 MG TAB PO SCH (08:59)
[2020-08-25] MEDS: ASPIRIN 81 MG CHEW TAB PO SCH (08:59)
[2020-08-25] MEDS: MECLIZINE HCL 12.5 MG TAB PO SCH ×3 (08:59→22:13)
[2020-08-25] MEDS: CARVEDILOL 12.5 MG TAB PO SCH ×2 (08:59→17:11)
[2020-08-25] MEDS: CYANOCOBALAMIN INJ 1,000 MCG/ML VIAL IM SCH (08:59)
[2020-08-25] MEDS: CLONIDINE HCL 0.2 MG TAB PO SCH ×3 (09:00→22:00)
[2020-08-25] MEDS: IRBESARTAN 150 MG TAB PO SCH (09:00)
[2020-08-25] MEDS: INSULIN LISPRO 100 UNIT/1 ML 3ML VIAL SQ SCH ×4 (11:30→22:55)
[2020-08-25] MEDS: LACTATED RINGER'S 1,000 ML INJ SCH (15:41)
[2020-08-25] MEDS: ACETAMINOPHEN 325 MG TAB PO PRN (22:13)
[2020-08-25] MEDS: ATORVASTATIN 40 MG TAB PO SCH (22:13)
[2020-08-26] VITALS: BP 129/51
[2020-08-26] MEDS: METOCLOPRAMIDE HCL 10 MG/2ML VIAL IV SCH ×2 (00:45→06:09)
[2020-08-26] MEDS: LACTATED RINGER'S 1,000 ML INJ SCH (03:18)
[2020-08-26 04:00] VITALS: BP 129/52
[2020-08-26 08:19] VITALS: BP 108/88
[2020-08-26 08:59] VITALS: BP 108/88
== END 2020-08-26 11:09 | disposition home or self-care (01) | DRG 371 ==
LOC: ER 09:59 → ERHOLD 13:42 → MED/SURG 14:52
PROVIDERS: ADMIT Internal Medicine; ATTEND Internal Medicine
PROC: 4A023N7 Measurement of Cardiac Sampling and Pressure, Left Heart, Percutaneous Approach (ICD-10-PCS; principal; 2020-08-18)
PROC: B2111ZZ Fluoroscopy of Multiple Coronary Arteries using Low Osmolar Contrast (ICD-10-PCS; 2020-08-18)
PROC: B2131ZZ Fluoroscopy of Multiple Coronary Artery Bypass Grafts using Low Osmolar Contrast (ICD-10-PCS; 2020-08-18)
PROC: B2151ZZ Fluoroscopy of Left Heart using Low Osmolar Contrast (ICD-10-PCS; 2020-08-18)
PROC: B2181ZZ Fluoroscopy of Left Internal Mammary Bypass Graft using Low Osmolar Contrast (ICD-10-PCS; 2020-08-18)
DX: A04.9 Bacterial intestinal infection, unspecified (principal); I21.4 Non-ST elevation (NSTEMI) myocardial infarction; N17.9 Acute kidney failure, unspecified; E87.1 Hypo-osmolality and hyponatremia; I16.9 Hypertensive crisis, unspecified; K81.0 Acute cholecystitis; K52.9 Noninfective gastroenteritis and colitis, unspecified; I51.7 Cardiomegaly; I25.10 Atherosclerotic heart disease of native coronary artery without angina pectoris; Z95.1 Presence of aortocoronary bypass graft; E87.6 Hypokalemia
CPT/HCPCS: 36415; 71045; 74022; 74177; 75605; 76700; 78227; 80048; 80053; 80061; 81001; 82150; 82550; 82553; 82607; 82728; 82746; 82948; 83540; 83690; 83735; 84436; 84443; 84466; 84479; 84484; 85025; 85045; 85610; 85730; 87086; 87205; 93005; 93306; 93455; 96360; 96361; 96372; 99152; 99153; 99284; A9537; C1887; J0360; J1644; J1650; J1940; J2001; J2250; J2270; J2405; J2543; J2550; J2765; J3010; J3420; J3480; J7030; J7050; J7121; Q9967; U0002

== ENCOUNTER 2020-12-07 23:16 | Inpatient (IN) | payer OTHER ==
[~2020-12-07] VITALS: Ht 157.5 cm; Wt 84.4 kg
[~2020-12-07 23:16] MED LIST changes: +ASPIRIN CHEW81 MG PO; +CARVEDILOL12.5 MG PO; +MECLIZINE HCL12.5 MG PO; +NORVASC5 MG PO; +ZOFRAN4 MG PO
[2020-12-07] MEDS ORDERED: SODIUM CHLORIDE 0.9% 1000ML 1,000 ML IV STA (23:18)
[2020-12-07] MEDS ORDERED: ONDANSETRON HCL INJ 2MG/ML 2ML 2 MG/ML VIAL IV STA (23:18)
[2020-12-07] MEDS ORDERED: MORPHINE SULFATE INJ 4 MG/ML INJ 1ML IV ONE (23:30)
[2020-12-07] MEDS ORDERED: ASPIRIN 81 MG CHEW TAB PO ONE (23:30)
[2020-12-08] VITALS (8 sets, daily range): BP systolic 153–193; BP diastolic 59–81
[2020-12-08 00:01] LABS: BASOPHILS # (AUTO) 0.1 (0.0-0.1); BASOPHILS % 0.4 % (0.0-1.0); EOSINOPHILS # (AUTO) 0.3 (0.0-0.4); EOSINOPHILS % 1.4 % (0.0-6.0); HEMATOCRIT 38.9 % (34.2-44.1); HEMOGLOBIN 12.9 g/dL (12.0-16.0); LYMPHOCYTES # (AUTO) 2.9 (1.0-3.2); LYMPHOCYTES % 15.5 % (18.0-39.1); MEAN CORPUSCULAR HEMOGLOBIN 29.3 pg (28-32); MEAN CORPUSCULAR HGB CONC 33.2 g/dL (31-35); MEAN CORPUSCULAR VOLUME 88.4 fL (81-99); MONOCYTES # (AUTO) 1.1 (0.2-0.8); MONOCYTES % 5.7 % (4.4-11.3); NEUTROPHILS # (AUTO) 14.4 (2.1-6.9); NEUTROPHILS % 76.3 % (38.7-80.0); PLATELET COUNT 281 x10e3/uL (140-360); RED CELL DISTRIBUTION WIDTH 12.5 % (11.7-14.4)
[2020-12-08 00:10] LABS: CLARITY,URINE CLEAR (CLEAR); COLOR,URINE YELLOW (YELLOW)
[2020-12-08 00:11] LABS: KETONES,URINE TRACE (NEGATIVE); LEUKOCYTE ESTERASE ,URINE NEGATIVE (NEGATIVE); NITRITE,URINE NEGATIVE (NEGATIVE); PROTEIN,URINE DIPSTICK >=300 (NEGATIVE); URINE UROBILINOGEN 0.2 mg/dL (0.2 - 1)
[2020-12-08 00:17] LABS: ALANINE AMINOTRANSFERASE 50 IU/L (0-55); ALBUMIN 4.1 g/dL (3.5-5.0); ALBUMIN/GLOBULIN RATIO 0.9 (0.8-2.0); ALKALINE PHOSPHATASE 102 IU/L (40-150); ANION GAP 18.3 mmol/L (8-16); BLOOD UREA NITROGEN 16 mg/dL (7-26); BUN/CREATININE RATIO 19 (6-25); CALCIUM 9.1 mg/dL (8.4-10.2); CARBON DIOXIDE 25 mmol/L (22-29); CHLORIDE 104 mmol/L (98-107); CREATINE KINASE 82 IU/L (29-168); CREATININE, SERUM 0.83 mg/dL (0.57-1.11); EST GLOMERULAR FILTRATION RATE > 60 ML/MIN (60-); GLUCOSE 214 mg/dL (74-118); POTASSIUM 3.3 mmol/L (3.5-5.1); SODIUM 144 mmol/L (136-145)
[2020-12-08 00:18] LABS: BACTERIA,URINE FEW /HPF; EPITHELIAL CELLS,URINE RARE /LPF
[2020-12-08] MEDS ORDERED: SODIUM CHLORIDE 0.9% 50ML 50 ML ONE (00:32)
[2020-12-08] MEDS ORDERED: IOPAMIDOL 370 MG/ML 200 ML INFUS..BTL INJ ONE (00:32)
[2020-12-08] MEDS ORDERED: PIPERACILLIN/TAZOBAC 3.375 GM in SODIUM CHLORIDE 0.9% 50ML 50 ML IV STA (01:02)
[2020-12-08] MEDS ORDERED: METRONIDAZOLE 500MG/NS 100ML 100 ML IV STA (01:02)
[2020-12-08] MEDS ORDERED: FENTANYL CITRATE/PF 100MCG/2 ML INJ IV ONE (01:15)
[2020-12-08] MEDS ORDERED: ONDANSETRON HCL INJ 2MG/ML 2ML 2 MG/ML VIAL ONE (01:35)
[2020-12-08] MEDS ORDERED: HYDRALAZINE HCL 20 MG/ML VIAL IV STA (01:43)
[2020-12-08] MEDS: SODIUM CHLORIDE 0.9% 1000ML 1,000 ML IV SCH ×3 (03:00→11:28)
[2020-12-08] MEDS: MORPHINE SULFATE INJ 4 MG/ML INJ 1ML IV PRN ×2 (04:14→11:28)
[2020-12-08] MEDS: ONDANSETRON HCL INJ 2MG/ML 2ML 2 MG/ML VIAL IV PRN ×2 (04:15→11:28)
[2020-12-08] MEDS: HYDRALAZINE HCL 20 MG/ML VIAL IV PRN ×3 (04:29→17:25)
[2020-12-08] MEDS ORDERED: HYDRALAZINE HCL 20 MG/ML VIAL IV PRN (09:45)
[2020-12-08] MEDS: ASPIRIN 300 MG SUPP PR SCH (11:28)
[2020-12-08] MEDS ORDERED: DEXTROSE 50% SYRINGE 50 ML IV PRN (14:00)
[2020-12-08] MEDS: METOPROLOL TARTRATE INJ 1 MG/ML VIAL IV SCH ×2 (14:14→22:00)
[2020-12-08] MEDS: PIPERACILLIN/TAZOBAC 3.375 GM in SODIUM CHLORIDE 0.9% 50ML 50 ML IV SCH ×2 (15:43→21:00)
[2020-12-08 16:05] LABS: INR 1.04; PARTIAL THROMBOPLASTIN TIME 25.7 seconds (23.8-35.5); PROTHROMBIN TIME 14.2 seconds (11.9-14.5)
[2020-12-08] MEDS: INSULIN LISPRO 100 UNIT/1 ML 3ML VIAL SQ SCH ×2 (17:25→21:00)
[2020-12-09] VITALS (8 sets, daily range): BP systolic 104–195; BP diastolic 47–82
[2020-12-09] MEDS: SODIUM CHLORIDE 0.9% 1000ML 1,000 ML IV SCH ×3 (02:29→17:19)
[2020-12-09] MEDS: PIPERACILLIN/TAZOBAC 3.375 GM in SODIUM CHLORIDE 0.9% 50ML 50 ML IV SCH ×4 (03:00→21:17)
[2020-12-09] MEDS: METOPROLOL TARTRATE INJ 1 MG/ML VIAL IV SCH ×4 (05:40→23:00)
[2020-12-09 05:50] LABS: BASOPHILS % 0.3 % (0.0-1.0); HEMOGLOBIN 10.3 g/dL (12.0-16.0); LYMPHOCYTES # (AUTO) 1.6 (1.0-3.2); LYMPHOCYTES % 13.4 % (18.0-39.1); MEAN CORPUSCULAR HEMOGLOBIN 29.7 pg (28-32); MEAN CORPUSCULAR HGB CONC 32.2 g/dL (31-35); MEAN CORPUSCULAR VOLUME 92.2 fL (81-99); MONOCYTES # (AUTO) 1.2 (0.2-0.8); MONOCYTES % 9.6 % (4.4-11.3); NEUTROPHILS # (AUTO) 9.1 (2.1-6.9); NEUTROPHILS % 75.8 % (38.7-80.0); PLATELET COUNT 213 x10e3/uL (140-360); RED BLOOD COUNT 3.47 x10e6/uL (3.6-5.1); RED CELL DISTRIBUTION WIDTH 13.6 % (11.7-14.4)
[2020-12-09 06:26] LABS: ANION GAP 12.7 mmol/L (8-16); CALCIUM 8.2 mg/dL (8.4-10.2); CREATININE, SERUM 1.21 mg/dL (0.57-1.11); POTASSIUM 3.7 mmol/L (3.5-5.1)
[2020-12-09] MEDS: INSULIN LISPRO 100 UNIT/1 ML 3ML VIAL SQ SCH ×4 (07:30→21:00)
[2020-12-09] MEDS: ASPIRIN 300 MG SUPP PR SCH (08:31)
[2020-12-09] MEDS: ONDANSETRON HCL INJ 2MG/ML 2ML 2 MG/ML VIAL IV PRN ×2 (10:35→19:52)
[2020-12-09] MEDS ORDERED: PROPOFOL IV EMULSION 10 MG/ML 20 ML VIAL ONE (11:50)
[2020-12-09] MEDS ORDERED: SUCCINYLCHOLINE CHLORIDE 20 MG/ML 10ML VIAL ONE (11:50)
[2020-12-09] MEDS ORDERED: LIDOCAINE HCL 2% LOCAL INJ 5 ML SDV VIAL INJ ONE (11:50)
[2020-12-09] MEDS ORDERED: ONDANSETRON HCL INJ 2MG/ML 2ML 2 MG/ML VIAL ONE (11:50)
[2020-12-09] MEDS ORDERED: SEVOFLURANE INHAL SOLN 250 ML PEN BTL ONE (11:50)
[2020-12-09] MEDS ORDERED: NEOSTIGMINE 1 MG/ML 10ML VIAL ONE (11:50)
[2020-12-09] MEDS ORDERED: ROCURONIUM BROMIDE 10 MG/ML 5ML VIAL IV ONE (11:50)
[2020-12-09] MEDS ORDERED: LIDOCAINE HCL 2% JELLY 5 ML TUBE ONE (11:50)
[2020-12-09] MEDS ORDERED: DEXAMETHASONE SOD PHOS INJ 4 MG/ML VIAL ONE (11:50)
[2020-12-09] MEDS ORDERED: GLYCOPYRROLATE INJ 0.2 MG/ML VIAL ONE (11:50)
[2020-12-09] MEDS ORDERED: FAMOTIDINE 20 MG/2 ML VIAL IV ONE (12:28)
[2020-12-09] MEDS ORDERED: SCOPOLAMINE 1.5 MG PATCH ONE (12:28)
[2020-12-09] MEDS ORDERED: BUPIVACAINE 0.25% 30ML SDV ONE (12:29)
[2020-12-09] MEDS ORDERED: FENTANYL CITRATE/PF 100MCG/2 ML INJ ONE ×2 (13:27→14:29)
[2020-12-09] MEDS ORDERED: MIDAZOLAM HCL 2 MG/2 ML VIAL ONE (13:27)
[2020-12-09] MEDS ORDERED: HYDROMORPHONE 1MG/1ML INJ ONE (15:20)
[2020-12-09] MEDS: MORPHINE SULFATE INJ 4 MG/ML INJ 1ML IV PRN (19:52)
[2020-12-10] VITALS (8 sets, daily range): BP systolic 94–206; BP diastolic 51–84
[2020-12-10] MEDS: MORPHINE SULFATE INJ 4 MG/ML INJ 1ML IV PRN ×4 (00:15→23:34)
[2020-12-10] MEDS: ONDANSETRON HCL INJ 2MG/ML 2ML 2 MG/ML VIAL IV PRN ×4 (00:15→23:34)
[2020-12-10] MEDS ORDERED: CARVEDILOL 12.5 MG TAB PO ONE (01:45)
[2020-12-10] MEDS: SODIUM CHLORIDE 0.9% 1000ML 1,000 ML IV SCH (02:24)
[2020-12-10] MEDS ORDERED: FUROSEMIDE INJ 10 MG/ML 2 ML VIAL IV ONE (03:00)
[2020-12-10] MEDS: PIPERACILLIN/TAZOBAC 3.375 GM in SODIUM CHLORIDE 0.9% 50ML 50 ML IV SCH ×4 (03:19→21:42)
[2020-12-10] MEDS: IRBESARTAN 150 MG TAB PO SCH (08:43)
[2020-12-10] MEDS: ASPIRIN 81 MG CHEW TAB PO SCH (08:43)
[2020-12-10] MEDS: CARVEDILOL 12.5 MG TAB PO SCH ×2 (08:44→17:00)
[2020-12-10] MEDS: PANTOPRAZOLE SOD 40 MG TABEC PO SCH ×2 (08:45→16:30)
[2020-12-10] MEDS: INSULIN LISPRO 100 UNIT/1 ML 3ML VIAL SQ SCH ×4 (08:48→21:38)
[2020-12-10] MEDS ORDERED: AMLODIPINE BESYLATE 5 MG TAB PO SCH (09:00)
[2020-12-10] MEDS: SIMVASTATIN 20 MG TAB PO SCH (21:42)
[2020-12-11] VITALS (8 sets, daily range): BP systolic 145–190; BP diastolic 56–78
[2020-12-11] MEDS: HYDRALAZINE HCL 20 MG/ML VIAL IV PRN ×2 (00:29→16:35)
[2020-12-11] MEDS: PIPERACILLIN/TAZOBAC 3.375 GM in SODIUM CHLORIDE 0.9% 50ML 50 ML IV SCH ×4 (03:00→21:22)
[2020-12-11] MEDS: SODIUM CHLORIDE 0.9% 1000ML 1,000 ML IV SCH ×2 (03:35→16:35)
[2020-12-11] MEDS: MORPHINE SULFATE INJ 4 MG/ML INJ 1ML IV PRN ×2 (06:29→21:25)
[2020-12-11] MEDS: ONDANSETRON HCL INJ 2MG/ML 2ML 2 MG/ML VIAL IV PRN ×4 (06:29→21:25)
[2020-12-11] MEDS: ASPIRIN 81 MG CHEW TAB PO SCH (09:26)
[2020-12-11] MEDS: IRBESARTAN 150 MG TAB PO SCH (09:27)
[2020-12-11] MEDS: PANTOPRAZOLE SOD 40 MG TABEC PO SCH ×2 (09:28→16:34)
[2020-12-11] MEDS: CARVEDILOL 12.5 MG TAB PO SCH ×2 (09:28→16:35)
[2020-12-11] MEDS: AMLODIPINE BESYLATE 5 MG TAB PO SCH (09:28)
[2020-12-11] MEDS: INSULIN LISPRO 100 UNIT/1 ML 3ML VIAL SQ SCH ×4 (09:30→21:24)
[2020-12-11] MEDS: PROMETHAZINE 12.5MG/ NACL 0.9% 12.5 MG/50 ML BAG IV PRN ×2 (12:00→18:10)
[2020-12-11] MEDS: SIMVASTATIN 20 MG TAB PO SCH (21:22)
[2020-12-12] VITALS (8 sets, daily range): BP systolic 135–189; BP diastolic 44–72
[2020-12-12] MEDS: PIPERACILLIN/TAZOBAC 3.375 GM in SODIUM CHLORIDE 0.9% 50ML 50 ML IV SCH ×4 (03:07→22:32)
[2020-12-12] MEDS: PROMETHAZINE 12.5MG/ NACL 0.9% 12.5 MG/50 ML BAG IV PRN ×2 (05:32→12:00)
[2020-12-12] MEDS: HYDRALAZINE HCL 20 MG/ML VIAL IV PRN ×2 (05:42→22:33)
[2020-12-12] MEDS: SODIUM CHLORIDE 0.9% 1000ML 1,000 ML IV SCH ×2 (06:15→19:35)
[2020-12-12] MEDS: INSULIN LISPRO 100 UNIT/1 ML 3ML VIAL SQ SCH ×4 (07:30→22:22)
[2020-12-12 08:20] LABS: BASOPHILS % 0.4 % (0.0-1.0); EOSINOPHILS # (AUTO) 0.1 (0.0-0.4); HEMATOCRIT 34.2 % (34.2-44.1); HEMOGLOBIN 11.3 g/dL (12.0-16.0); LYMPHOCYTES # (AUTO) 1.3 (1.0-3.2); LYMPHOCYTES % 11.3 % (18.0-39.1); MEAN CORPUSCULAR HEMOGLOBIN 29.4 pg (28-32); MEAN CORPUSCULAR VOLUME 89.1 fL (81-99); MONOCYTES # (AUTO) 0.8 (0.2-0.8); MONOCYTES % 7.5 % (4.4-11.3); NEUTROPHILS # (AUTO) 8.8 (2.1-6.9); NEUTROPHILS % 78.7 % (38.7-80.0); PLATELET COUNT 215 x10e3/uL (140-360); RED BLOOD COUNT 3.84 x10e6/uL (3.6-5.1); RED CELL DISTRIBUTION WIDTH 13.2 % (11.7-14.4)
[2020-12-12 08:40] LABS: ALANINE AMINOTRANSFERASE 42 IU/L (0-55); ALBUMIN 2.8 g/dL (3.5-5.0); ALBUMIN/GLOBULIN RATIO 0.9 (0.8-2.0); ALKALINE PHOSPHATASE 67 IU/L (40-150); ANION GAP 15.6 mmol/L (8-16); BLOOD UREA NITROGEN 16 mg/dL (7-26); BUN/CREATININE RATIO 24 (6-25); CALCIUM 7.8 mg/dL (8.4-10.2); CARBON DIOXIDE 22 mmol/L (22-29); CHLORIDE 104 mmol/L (98-107); CREATININE, SERUM 0.67 mg/dL (0.57-1.11); EST GLOMERULAR FILTRATION RATE > 60 ML/MIN (60-); GLUCOSE 217 mg/dL (74-118); POTASSIUM 3.6 mmol/L (3.5-5.1); SODIUM 138 mmol/L (136-145)
[2020-12-12] MEDS: PANTOPRAZOLE SOD 40 MG TABEC PO SCH ×2 (09:03→16:32)
[2020-12-12] MEDS: ASPIRIN 81 MG CHEW TAB PO SCH (09:03)
[2020-12-12] MEDS: IRBESARTAN 150 MG TAB PO SCH (09:04)
[2020-12-12] MEDS: AMLODIPINE BESYLATE 5 MG TAB PO SCH (09:04)
[2020-12-12] MEDS: CARVEDILOL 12.5 MG TAB PO SCH ×2 (09:04→16:40)
[2020-12-12] MEDS: ONDANSETRON HCL INJ 2MG/ML 2ML 2 MG/ML VIAL IV PRN (21:30)
[2020-12-12] MEDS: SIMVASTATIN 20 MG TAB PO SCH (22:32)
[2020-12-12] MEDS ORDERED: FUROSEMIDE INJ 10 MG/ML 4 ML VIAL IV ONE (23:15)
[2020-12-13] VITALS (8 sets, daily range): BP systolic 110–161; BP diastolic 51–87
[2020-12-13] MEDS: PROMETHAZINE 12.5MG/ NACL 0.9% 12.5 MG/50 ML BAG IV PRN (02:53)
[2020-12-13] MEDS: PIPERACILLIN/TAZOBAC 3.375 GM in SODIUM CHLORIDE 0.9% 50ML 50 ML IV SCH ×4 (03:00→21:00)
[2020-12-13] MEDS: ONDANSETRON HCL INJ 2MG/ML 2ML 2 MG/ML VIAL IV PRN ×2 (04:39→21:30)
[2020-12-13] MEDS: MORPHINE SULFATE INJ 4 MG/ML INJ 1ML IV PRN (04:39)
[2020-12-13] MEDS: INSULIN LISPRO 100 UNIT/1 ML 3ML VIAL SQ SCH ×4 (07:30→21:00)
[2020-12-13] MEDS: PANTOPRAZOLE SOD 40 MG TABEC PO SCH ×2 (08:53→16:37)
[2020-12-13] MEDS: IRBESARTAN 150 MG TAB PO SCH (08:53)
[2020-12-13] MEDS: SODIUM CHLORIDE 0.9% 1000ML 1,000 ML IV SCH ×3 (08:53→22:15)
[2020-12-13] MEDS: ASPIRIN 81 MG CHEW TAB PO SCH (08:53)
[2020-12-13] MEDS: AMLODIPINE BESYLATE 5 MG TAB PO SCH (08:54)
[2020-12-13] MEDS: CARVEDILOL 12.5 MG TAB PO SCH ×2 (08:54→16:37)
[2020-12-13] MEDS: FUROSEMIDE INJ 10 MG/ML 2 ML VIAL IV SCH (17:23)
[2020-12-13] MEDS: SIMVASTATIN 20 MG TAB PO SCH (21:00)
[2020-12-14] VITALS (7 sets, daily range): BP systolic 130–179; BP diastolic 47–82
[2020-12-14] MEDS: PIPERACILLIN/TAZOBAC 3.375 GM in SODIUM CHLORIDE 0.9% 50ML 50 ML IV SCH ×4 (02:51→21:00)
[2020-12-14] MEDS: PANTOPRAZOLE SOD 40 MG TABEC PO SCH ×2 (08:23→16:46)
[2020-12-14] MEDS: INSULIN LISPRO 100 UNIT/1 ML 3ML VIAL SQ SCH ×4 (08:24→21:00)
[2020-12-14] MEDS: CARVEDILOL 12.5 MG TAB PO SCH ×2 (08:29→16:46)
[2020-12-14] MEDS: IRBESARTAN 150 MG TAB PO SCH (08:29)
[2020-12-14] MEDS: FUROSEMIDE INJ 10 MG/ML 2 ML VIAL IV SCH (08:29)
[2020-12-14] MEDS: ASPIRIN 81 MG CHEW TAB PO SCH (08:29)
[2020-12-14] MEDS: AMLODIPINE BESYLATE 5 MG TAB PO SCH (08:29)
[2020-12-14] MEDS: SODIUM CHLORIDE 0.9% 1000ML 1,000 ML IV SCH (11:35)
[2020-12-14] MEDS: ONDANSETRON HCL INJ 2MG/ML 2ML 2 MG/ML VIAL IV PRN (18:07)
[2020-12-14] MEDS: SIMVASTATIN 20 MG TAB PO SCH (21:00)
[2020-12-14] MEDS: PROMETHAZINE 12.5MG/ NACL 0.9% 12.5 MG/50 ML BAG IV PRN (23:53)
[2020-12-14] MEDS: MORPHINE SULFATE INJ 4 MG/ML INJ 1ML IV PRN (23:53)
[2020-12-15] VITALS (7 sets, daily range): BP systolic 90–173; BP diastolic 48–73
[2020-12-15] MEDS: SODIUM CHLORIDE 0.9% 1000ML 1,000 ML IV SCH ×2 (04:35→14:18)
[2020-12-15] MEDS: PIPERACILLIN/TAZOBAC 3.375 GM in SODIUM CHLORIDE 0.9% 50ML 50 ML IV SCH ×4 (04:35→20:30)
[2020-12-15] MEDS: PANTOPRAZOLE SOD 40 MG TABEC PO SCH ×2 (08:11→16:57)
[2020-12-15] MEDS: FUROSEMIDE INJ 10 MG/ML 2 ML VIAL IV SCH (08:12)
[2020-12-15] MEDS: IRBESARTAN 150 MG TAB PO SCH (08:12)
[2020-12-15] MEDS: ASPIRIN 81 MG CHEW TAB PO SCH (08:12)
[2020-12-15] MEDS: INSULIN LISPRO 100 UNIT/1 ML 3ML VIAL SQ SCH ×4 (08:12→20:30)
[2020-12-15] MEDS: AMLODIPINE BESYLATE 5 MG TAB PO SCH (08:13)
[2020-12-15] MEDS: CARVEDILOL 12.5 MG TAB PO SCH ×2 (08:13→16:58)
[2020-12-15] MEDS: ONDANSETRON HCL INJ 2MG/ML 2ML 2 MG/ML VIAL IV PRN ×2 (09:22→17:04)
[2020-12-15] MEDS: HYDRALAZINE HCL 20 MG/ML VIAL IV PRN (13:08)
[2020-12-15] MEDS ORDERED: NORVASC5 MG PO (19:42)
[2020-12-15] MEDS ORDERED: LEVEMIR FL100 UNIT/1 SC (19:42)
[2020-12-15] MEDS ORDERED: LASIX20 MG PO (19:43)
[2020-12-15] MEDS ORDERED: CLONIDINE HCL0.1 MG PO (20:01)
[2020-12-15] MEDS ORDERED: AUGMENTIN 875-1 EACH PO ×3 (20:07→20:17)
[2020-12-15] MEDS ORDERED: K DUR10 MEQ PO (20:27)
[2020-12-15] MEDS: SIMVASTATIN 20 MG TAB PO SCH (20:30)
== END 2020-12-15 21:56 | disposition home or self-care (01) | DRG 417 ==
LOC: ER 23:19 → ERHOLD 12-08 01:58 → MED/SURG3 12-08 02:41
PROVIDERS: ADMIT Internal Medicine; ATTEND Internal Medicine
PROC: 0FB44ZZ Excision of Gallbladder, Percutaneous Endoscopic Approach (ICD-10-PCS; principal; 2020-12-09 12:30)
DX: K81.2 Acute cholecystitis with chronic cholecystitis (principal); I50.33 Acute on chronic diastolic (congestive) heart failure; I13.0 Hypertensive heart and chronic kidney disease with heart failure and stage 1 through stage 4 chronic kidney disease, or unspecified chronic kidney disease; N30.90 Cystitis, unspecified without hematuria; D64.9 Anemia, unspecified; D72.829 Elevated white blood cell count, unspecified; I25.10 Atherosclerotic heart disease of native coronary artery without angina pectoris; E66.01 Morbid (severe) obesity due to excess calories; Z68.34 Body mass index [BMI] 34.0-34.9, adult; Z95.1 Presence of aortocoronary bypass graft; E78.5 Hyperlipidemia, unspecified; I25.2 Old myocardial infarction; N18.9 Chronic kidney disease, unspecified; Z20.822 Contact with and (suspected) exposure to COVID-19; E11.65 Type 2 diabetes mellitus with hyperglycemia
CPT/HCPCS: 36415; 71045; 71046; 74177; 80048; 80053; 81001; 82550; 82553; 82948; 83605; 83690; 84484; 85025; 85610; 85730; 87040; 88304; 93005; 99284; J0330; J0360; J1100; J1170; J1940; J2001; J2250; J2270; J2405; J2543; J2550; J2710; J3010; J7030; Q9967; U0002

== ENCOUNTER 2022-07-28 03:51 | Inpatient (IN) | payer MEDICARE, OTHER ==
[~2022-07-28] VITALS: Ht 157.5 cm; Wt 84.4 kg
[2022-07-28] VITALS (8 sets, daily range): BP systolic 119–169; BP diastolic 52–61
[~2022-07-28 03:51] MED LIST changes: +AUGMENTIN 875-1 EACH PO; +CLONIDINE HCL0.1 MG PO; +K DUR10 MEQ PO; +LASIX20 MG PO
[2022-07-28 04:15] LABS: BASOPHILS # (AUTO) 0.1 (0.0-0.1); BASOPHILS % 0.6 % (0.0-1.0); EOSINOPHILS # (AUTO) 0.3 (0.0-0.4); EOSINOPHILS % 3.1 % (0.0-6.0); HEMOGLOBIN 12.5 g/dL (12.0-16.0); LYMPHOCYTES # (AUTO) 2.4 (1.0-3.2); LYMPHOCYTES % 21.6 % (18.0-39.1); MEAN CORPUSCULAR HEMOGLOBIN 30.6 pg (28-32); MEAN CORPUSCULAR HGB CONC 31.3 g/dL (31-35); MEAN CORPUSCULAR VOLUME 97.8 fL (81-99); MONOCYTES # (AUTO) 1.2 (0.2-0.8); MONOCYTES % 10.6 % (4.4-11.3); NEUTROPHILS % 63.6 % (38.7-80.0); PLATELET COUNT 299 x10e3/uL (140-360); RED BLOOD COUNT 4.09 x10e6/uL (3.6-5.1); RED CELL DISTRIBUTION WIDTH 13.4 % (11.7-14.4)
[2022-07-28] MEDS ORDERED: FUROSEMIDE INJ 10 MG/ML 4 ML VIAL IV ONE (04:30)
[2022-07-28 04:39] LABS: ALBUMIN 3.9 g/dL (3.5-5.0); ALBUMIN/GLOBULIN RATIO 0.8 (0.8-2.0); ANION GAP 16.7 mmol/L (8-16); CALCIUM 9.2 mg/dL (8.4-10.2); CREATININE, SERUM 1.17 mg/dL (0.57-1.11); POTASSIUM 4.7 mmol/L (3.5-5.1)
[2022-07-28 04:54] LABS: CLARITY,URINE CLEAR (CLEAR); COLOR,URINE YELLOW (YELLOW); KETONES,URINE NEGATIVE (NEGATIVE); LEUKOCYTE ESTERASE ,URINE NEGATIVE (NEGATIVE); NITRITE,URINE NEGATIVE (NEGATIVE); PROTEIN,URINE DIPSTICK NEGATIVE (NEGATIVE); URINE UROBILINOGEN 0.2 mg/dL (0.2 - 1); WBC,URINE (MAN) 0-5 /HPF (0-5)
[2022-07-28 04:55] LABS: BACTERIA,URINE FEW /HPF; EPITHELIAL CELLS,URINE MODERATE /LPF
[2022-07-28] MEDS ORDERED: ASPIRIN 81 MG CHEW TAB PO ONE (05:00)
[2022-07-28 07:27] LABS: CREATINE KINASE MB 1.4 ng/mL (0-5.0)
[2022-07-28] MEDS ORDERED: ULTRACET TABLE1 EACH PO (07:48)
[2022-07-28] MEDS ORDERED: CARVEDILOL3.125 MG PO (07:48)
[2022-07-28] MEDS ORDERED: NOVOLIN N100 UNIT/1 (07:48)
[2022-07-28] MEDS ORDERED: NAPROXEN250 MG PO (07:48)
[2022-07-28] MEDS ORDERED: ACETAMINOPHEN 325 MG TAB PO PRN (08:30)
[2022-07-28] MEDS ORDERED: DEXTROSE 50% SYRINGE 50 ML IV PRN (08:45)
[2022-07-28] MEDS ORDERED: AMLODIPINE BESYLATE 5 MG TAB PO SCH (09:45)
[2022-07-28] MEDS: INSULIN REGULAR, HUMAN 100 UNIT/1 ML SQ SCH ×4 (10:12→20:44)
[2022-07-28] MEDS: TRAMADOL HCL 50 MG TAB PO PRN (11:10)
[2022-07-28] MEDS: PANTOPRAZOLE SOD 40 MG TABEC PO SCH (11:11)
[2022-07-28] MEDS: CLONIDINE HCL 0.1 MG TAB PO SCH ×3 (11:11→20:40)
[2022-07-28] MEDS: CARVEDILOL 3.125 MG TAB PO SCH ×2 (11:12→15:57)
[2022-07-28] MEDS: ASPIRIN 81 MG ENTERIC COATED PO SCH (11:12)
[2022-07-28] MEDS: FUROSEMIDE INJ 10 MG/ML 2 ML VIAL IV SCH ×2 (11:34→14:48)
[2022-07-28 14:37] LABS: CREATINE KINASE MB 1.8 ng/mL (0-5.0)
[2022-07-28] MEDS: ENOXAPARIN SOD INJ 40 MG/0.4 ML SYR SC SCH (15:57)
[2022-07-28] MEDS: ATORVASTATIN 40 MG TAB PO SCH (20:40)
[2022-07-29] VITALS (8 sets, daily range): BP systolic 111–134; BP diastolic 47–57
[2022-07-29] MEDS: FUROSEMIDE INJ 10 MG/ML 2 ML VIAL IV SCH ×3 (05:14→21:16)
[2022-07-29 06:41] LABS: BASOPHILS # (AUTO) 0.1 (0.0-0.1); BASOPHILS % 0.8 % (0.0-1.0); EOSINOPHILS # (AUTO) 0.3 (0.0-0.4); EOSINOPHILS % 3.6 % (0.0-6.0); HEMATOCRIT 34.7 % (34.2-44.1); HEMOGLOBIN 11.4 g/dL (12.0-16.0); LYMPHOCYTES # (AUTO) 2.4 (1.0-3.2); LYMPHOCYTES % 32.4 % (18.0-39.1); MEAN CORPUSCULAR HEMOGLOBIN 30.2 pg (28-32); MEAN CORPUSCULAR HGB CONC 32.9 g/dL (31-35); MEAN CORPUSCULAR VOLUME 91.8 fL (81-99); MONOCYTES # (AUTO) 0.7 (0.2-0.8); MONOCYTES % 9.9 % (4.4-11.3); PLATELET COUNT 274 x10e3/uL (140-360); RED BLOOD COUNT 3.78 x10e6/uL (3.6-5.1); RED CELL DISTRIBUTION WIDTH 13.3 % (11.7-14.4)
[2022-07-29 07:25] LABS: ANION GAP 15.4 mmol/L (8-16); CALCIUM 8.9 mg/dL (8.4-10.2); CREATININE, SERUM 1.04 mg/dL (0.57-1.11); POTASSIUM 4.4 mmol/L (3.5-5.1)
[2022-07-29] MEDS: INSULIN REGULAR, HUMAN 100 UNIT/1 ML SQ SCH ×4 (08:20→21:36)
[2022-07-29] MEDS: AMLODIPINE BESYLATE 5 MG TAB PO SCH (08:34)
[2022-07-29] MEDS: ASPIRIN 81 MG ENTERIC COATED PO SCH (08:34)
[2022-07-29] MEDS: CARVEDILOL 3.125 MG TAB PO SCH ×2 (08:34→17:20)
[2022-07-29] MEDS: CLONIDINE HCL 0.1 MG TAB PO SCH ×2 (08:34→17:19)
[2022-07-29] MEDS: PANTOPRAZOLE SOD 40 MG TABEC PO SCH (08:35)
[2022-07-29] MEDS: TRAMADOL HCL 50 MG TAB PO PRN (08:35)
[2022-07-29 09:52] LABS: CREATINE KINASE MB 1.2 ng/mL (0-5.0)
[2022-07-29] MEDS: ENOXAPARIN SOD INJ 40 MG/0.4 ML SYR SC SCH (17:20)
[2022-07-29] MEDS ORDERED: INSULIN GLARGINE 100 UNITS/ML VIAL SQ SCH (21:00)
[2022-07-29] MEDS: ATORVASTATIN 40 MG TAB PO SCH (21:16)
[2022-07-30] VITALS (7 sets, daily range): BP systolic 101–167; BP diastolic 53–79
[2022-07-30] MEDS: FUROSEMIDE INJ 10 MG/ML 2 ML VIAL IV SCH ×3 (06:08→21:08)
[2022-07-30] MEDS: ASPIRIN 81 MG ENTERIC COATED PO SCH (08:47)
[2022-07-30] MEDS: PANTOPRAZOLE SOD 40 MG TABEC PO SCH (08:47)
[2022-07-30] MEDS: AMLODIPINE BESYLATE 5 MG TAB PO SCH (08:48)
[2022-07-30] MEDS: CLONIDINE HCL 0.1 MG TAB PO SCH ×2 (08:48→17:26)
[2022-07-30] MEDS: CARVEDILOL 3.125 MG TAB PO SCH (08:49)
[2022-07-30] MEDS ORDERED: INSULIN LISPRO 100 UNIT/1 ML 3ML VIAL SQ ONE (12:00)
[2022-07-30] MEDS ORDERED: INSULIN GLARGINE 100 UNITS/ML VIAL SQ ONE (12:00)
[2022-07-30] MEDS: INSULIN LISPRO 100 UNIT/1 ML 3ML VIAL SQ SCH ×3 (12:25→21:00)
[2022-07-30 12:33] LABS: ANION GAP 15.4 mmol/L (8-16); CALCIUM 9.9 mg/dL (8.4-10.2); CREATININE, SERUM 1.3 mg/dL (0.57-1.11); POTASSIUM 4.4 mmol/L (3.5-5.1)
[2022-07-30] MEDS: ENOXAPARIN SOD INJ 40 MG/0.4 ML SYR SC SCH (17:26)
[2022-07-30] MEDS: CARVEDILOL 12.5 MG TAB PO SCH (17:27)
[2022-07-30] MEDS ORDERED: INSULIN GLARGINE 100 UNITS/ML VIAL SQ SCH (21:00)
[2022-07-30] MEDS: ATORVASTATIN 40 MG TAB PO SCH (21:07)
[2022-07-30] MEDS: TRAMADOL HCL 50 MG TAB PO PRN (21:14)
[2022-07-31] VITALS: BP 136/59
[2022-07-31 04:00] VITALS: BP 125/53
[2022-07-31 05:59] LABS: BASOPHILS # (AUTO) 0.1 (0.0-0.1); BASOPHILS % 0.7 % (0.0-1.0); EOSINOPHILS # (AUTO) 0.3 (0.0-0.4); EOSINOPHILS % 3.3 % (0.0-6.0); HEMATOCRIT 35.7 % (34.2-44.1); HEMOGLOBIN 11.5 g/dL (12.0-16.0); LYMPHOCYTES # (AUTO) 2.9 (1.0-3.2); LYMPHOCYTES % 31.6 % (18.0-39.1); MEAN CORPUSCULAR HEMOGLOBIN 30.7 pg (28-32); MEAN CORPUSCULAR HGB CONC 32.2 g/dL (31-35); MEAN CORPUSCULAR VOLUME 95.2 fL (81-99); MONOCYTES # (AUTO) 1.1 (0.2-0.8); NEUTROPHILS # (AUTO) 4.8 (2.1-6.9); NEUTROPHILS % 52.1 % (38.7-80.0); PLATELET COUNT 294 x10e3/uL (140-360); RED BLOOD COUNT 3.75 x10e6/uL (3.6-5.1); RED CELL DISTRIBUTION WIDTH 12.5 % (11.7-14.4)
[2022-07-31] MEDS: FUROSEMIDE INJ 10 MG/ML 2 ML VIAL IV SCH (06:07)
[2022-07-31 06:22] LABS: ANION GAP 16.2 mmol/L (8-16); CREATININE, SERUM 1.13 mg/dL (0.57-1.11); POTASSIUM 4.2 mmol/L (3.5-5.1)
[2022-07-31] MEDS: TRAMADOL HCL 50 MG TAB PO PRN (06:39)
[2022-07-31 08:17] VITALS: BP 160/44
[2022-07-31 08:26] VITALS: BP 160/44
[2022-07-31] MEDS ORDERED: INSULIN LISPRO 100 UNIT/1 ML 3ML VIAL SQ ONE (08:45)
[2022-07-31] MEDS ORDERED: COREG12.5 MG PO (08:48)
[2022-07-31] MEDS ORDERED: PROTONIX40 MG/ML PO (08:48)
[2022-07-31] MEDS ORDERED: FUROSEMIDE40 MG PO (08:48)
[2022-07-31] MEDS ORDERED: POTASSIUM CHLO10 ME1 PO (08:48)
[2022-07-31] MEDS ORDERED: LEVEMIR FL100 UNIT/1 SC (08:48)
[2022-07-31] MEDS ORDERED: Atorvastatin PO (08:48)
[2022-07-31] MEDS ORDERED: NOVOLOG100 UNIT/1 SC (08:48)
[2022-07-31] MEDS ORDERED: DOCUSATE SODIUM 100 MG CAP PO SCH (09:00)
[2022-07-31] MEDS: PANTOPRAZOLE SOD 40 MG TABEC PO SCH (09:52)
[2022-07-31] MEDS: CLONIDINE HCL 0.1 MG TAB PO SCH (09:52)
[2022-07-31] MEDS: AMLODIPINE BESYLATE 5 MG TAB PO SCH (09:52)
[2022-07-31] MEDS: ASPIRIN 81 MG ENTERIC COATED PO SCH (09:52)
[2022-07-31] MEDS: CARVEDILOL 12.5 MG TAB PO SCH (09:53)
[2022-07-31] MEDS ORDERED: INSULIN LISPRO 100 UNIT/1 ML 3ML VIAL SQ SCH (11:30)
== END 2022-07-31 10:54 | disposition home or self-care (01) | DRG 291 ==
LOC: ER 03:54 → ERHOLD 05:02 → MED/SURG3 05:34
PROVIDERS: ADMIT Internal Medicine; ATTEND Internal Medicine
DX: I11.0 Hypertensive heart disease with heart failure (principal); I50.21 Acute systolic (congestive) heart failure; J96.01 Acute respiratory failure with hypoxia; N17.9 Acute kidney failure, unspecified; E11.69 Type 2 diabetes mellitus with other specified complication; E78.5 Hyperlipidemia, unspecified; R74.8 Abnormal levels of other serum enzymes; I25.119 Atherosclerotic heart disease of native coronary artery with unspecified angina pectoris; Z95.1 Presence of aortocoronary bypass graft; K21.9 Gastro-esophageal reflux disease without esophagitis; M19.012 Primary osteoarthritis, left shoulder; M19.011 Primary osteoarthritis, right shoulder; E66.09 Other obesity due to excess calories; Z68.34 Body mass index [BMI] 34.0-34.9, adult; Z20.822 Contact with and (suspected) exposure to COVID-19
CPT/HCPCS: 36415; 71045; 80048; 80053; 80061; 81001; 82550; 82553; 82948; 83036; 83880; 84484; 85025; 87400; 93005; 94799; 96372; 99284; J1650; J1817; J1940

== ENCOUNTER 2022-11-06 19:48 | Inpatient (IN) | payer MEDICARE, OTHER ==
[~2022-11-06] VITALS: Ht 154.9 cm; Wt 88.5 kg
[~2022-11-06 19:48] MED LIST changes: +Atorvastatin PO; +CARVEDILOL3.125 MG PO; +COREG12.5 MG PO; +NAPROXEN250 MG PO; +NOVOLIN N100 UNIT/1; +NOVOLOG100 UNIT/1 SC; +POTASSIUM CHLO10 ME1 PO; +PROTONIX40 MG/ML PO; +ULTRACET TABLE1 EACH PO
[2022-11-06] MEDS ORDERED: ALBUTEROL/IPRATROPIUM 3 ML NEB NEB STA (19:52)
[2022-11-06] MEDS ORDERED: FUROSEMIDE INJ 10 MG/ML 4 ML VIAL IV STA ×2 (19:53→20:30)
[2022-11-06] MEDS ORDERED: HYDRALAZINE HCL 20 MG/ML VIAL IV STA (20:15)
[2022-11-06] MEDS ORDERED: ALBUTEROL/IPRATROPIUM 3 ML NEB ONE (20:20)
[2022-11-06 20:31] LABS: BASOPHILS # (AUTO) 0.1 (0.0-0.1); BASOPHILS % 0.7 % (0.0-1.0); EOSINOPHILS # (AUTO) 0.3 (0.0-0.4); EOSINOPHILS % 2.8 % (0.0-6.0); HEMOGLOBIN 12.7 g/dL (12.0-16.0); LYMPHOCYTES # (AUTO) 2.4 (1.0-3.2); LYMPHOCYTES % 26.1 % (18.0-39.1); MEAN CORPUSCULAR HEMOGLOBIN 30.9 pg (28-32); MEAN CORPUSCULAR HGB CONC 32.6 g/dL (31-35); MEAN CORPUSCULAR VOLUME 94.9 fL (81-99); MONOCYTES # (AUTO) 0.7 (0.2-0.8); MONOCYTES % 7.8 % (4.4-11.3); NEUTROPHILS # (AUTO) 5.7 (2.1-6.9); NEUTROPHILS % 62.2 % (38.7-80.0); PLATELET COUNT 288 x10e3/uL (140-360); RED BLOOD COUNT 4.11 x10e6/uL (3.6-5.1); RED CELL DISTRIBUTION WIDTH 13.4 % (11.7-14.4)
[2022-11-06 20:35] LABS: AMPHETAMINES SCREEN,URINE NEGATIVE (NEGATIVE); BENZODIAZEPINES SCREEN,URINE NEGATIVE (NEGATIVE); PHENCYCLIDINE SCREEN,URINE NEGATIVE (NEGATIVE)
[2022-11-06 20:52] LABS: ALBUMIN 3.6 g/dL (3.5-5.0); ALBUMIN/GLOBULIN RATIO 0.8 (0.8-2.0); ANION GAP 15.9 mmol/L (8-16); CALCIUM 8.9 mg/dL (8.4-10.2); CREATININE, SERUM 1.32 mg/dL (0.57-1.11); POTASSIUM 4.9 mmol/L (3.5-5.1)
[2022-11-06] MEDS ORDERED: DEXTROSE 50% SYRINGE 50 ML IV PRN (21:30)
[2022-11-06 21:37] LABS: CREATINE KINASE MB 1.1 ng/mL (0-5.0)
[2022-11-06] MEDS ORDERED: INSULIN REGULAR, HUMAN 100 UNIT/1 ML SQ ONE (21:45)
[2022-11-07] MEDS ORDERED: MELATONIN 3 MG TAB PO PRN
[2022-11-07] MEDS ORDERED: DOCUSATE SODIUM 100 MG CAP PO PRN
[2022-11-07] MEDS ORDERED: ONDANSETRON HCL INJ 2MG/ML 2ML 2 MG/ML VIAL IV PRN
[2022-11-07] MEDS ORDERED: GUAIFENESIN/DEXTROMETHORPHAN LIQD 5 ML UDC PO PRN
[2022-11-07] MEDS ORDERED: ACETAMINOPHEN 325 MG TAB PO PRN
[2022-11-07] MEDS ORDERED: FUROSEMIDE INJ 10 MG/ML 4 ML VIAL IV SCH
[2022-11-07] MEDS ORDERED: INSULIN GLARGINE 100 UNITS/ML VIAL SQ ONE
[2022-11-07] MEDS ORDERED: HYDRALAZINE HCL 20 MG/ML VIAL IV PRN
[2022-11-07 05:28] LABS: BASOPHILS # (AUTO) 0.1 (0.0-0.1); BASOPHILS % 0.5 % (0.0-1.0); EOSINOPHILS # (AUTO) 0.2 (0.0-0.4); EOSINOPHILS % 1.6 % (0.0-6.0); HEMATOCRIT 33.5 % (34.2-44.1); LYMPHOCYTES # (AUTO) 2.9 (1.0-3.2); LYMPHOCYTES % 27.5 % (18.0-39.1); MEAN CORPUSCULAR HEMOGLOBIN 30.7 pg (28-32); MEAN CORPUSCULAR HGB CONC 32.8 g/dL (31-35); MEAN CORPUSCULAR VOLUME 93.6 fL (81-99); MONOCYTES # (AUTO) 1.1 (0.2-0.8); MONOCYTES % 10.1 % (4.4-11.3); NEUTROPHILS # (AUTO) 6.2 (2.1-6.9); NEUTROPHILS % 59.6 % (38.7-80.0); PLATELET COUNT 288 x10e3/uL (140-360); RED BLOOD COUNT 3.58 x10e6/uL (3.6-5.1); RED CELL DISTRIBUTION WIDTH 13.3 % (11.7-14.4)
[2022-11-07 05:50] LABS: ALBUMIN 3.2 g/dL (3.5-5.0); ALBUMIN/GLOBULIN RATIO 0.8 (0.8-2.0); ANION GAP 13.8 mmol/L (8-16); CALCIUM 8.8 mg/dL (8.4-10.2); CREATININE, SERUM 0.93 mg/dL (0.57-1.11); POTASSIUM 3.8 mmol/L (3.5-5.1)
[2022-11-07] MEDS: FUROSEMIDE INJ 10 MG/ML 4 ML VIAL IV SCH ×3 (06:35→21:39)
[2022-11-07] MEDS: INSULIN REGULAR, HUMAN 100 UNIT/1 ML SQ SCH ×5 (07:09→21:49)
[2022-11-07] MEDS: POTASSIUM CHLORIDE 10MEQ EA PO SCH (07:41)
[2022-11-07] MEDS: AMLODIPINE BESYLATE 5 MG TAB PO SCH (07:41)
[2022-11-07] MEDS: CARVEDILOL 12.5 MG TAB PO SCH ×2 (07:41→17:21)
[2022-11-07] MEDS: PANTOPRAZOLE SOD 40 MG TABEC PO SCH (07:41)
[2022-11-07] MEDS: MULTIVITAMINS/MINERALS TAB PO SCH (07:41)
[2022-11-07] MEDS ORDERED: ASPIRIN EC81 MG PO (14:27)
[2022-11-07] MEDS ORDERED: CENTRUM ADULTS1 EACH PO (14:29)
[2022-11-07 14:34] VITALS: BP 147/52
[2022-11-07 14:35] VITALS: BP 147/52
[2022-11-07 14:37] VITALS: BP 147/52
[2022-11-07 14:44] LABS: CREATINE KINASE MB 1.2 ng/mL (0-5.0)
[2022-11-07] MEDS: ENOXAPARIN SOD INJ 40 MG/0.4 ML SYR SC SCH (17:21)
[2022-11-07] MEDS ORDERED: INSULIN GLARGINE 100 UNITS/ML VIAL SQ SCH (21:00)
[2022-11-07 21:27] VITALS: BP 146/53
[2022-11-07] MEDS: ATORVASTATIN 40 MG TAB PO SCH (21:39)
[2022-11-07 21:45] VITALS: BP 146/53
[2022-11-08] VITALS (7 sets, daily range): BP systolic 126–157; BP diastolic 48–78
[2022-11-08] MEDS ORDERED: POTASSIUM CHLORIDE 20 MEQ TAB CR PO STA (01:20)
[2022-11-08 06:38] LABS: ANION GAP 14.8 mmol/L (8-16); CALCIUM 9.5 mg/dL (8.4-10.2); CREATININE, SERUM 1.34 mg/dL (0.57-1.11); MAGNESIUM 1.8 MG/DL (1.3-2.1); POTASSIUM 4.8 mmol/L (3.5-5.1)
[2022-11-08] MEDS ORDERED: INSULIN GLARGINE 100 UNITS/ML VIAL SQ ONE (07:00)
[2022-11-08] MEDS ORDERED: LACTULOSE SYRUP 20 GM/30 ML UDC PO ONE (08:00)
[2022-11-08] MEDS: PANTOPRAZOLE SOD 40 MG TABEC PO SCH (08:24)
[2022-11-08] MEDS: INSULIN REGULAR, HUMAN 100 UNIT/1 ML SQ SCH ×4 (08:28→20:53)
[2022-11-08] MEDS: MULTIVITAMINS/MINERALS TAB PO SCH (08:37)
[2022-11-08] MEDS: POTASSIUM CHLORIDE 10MEQ EA PO SCH (08:37)
[2022-11-08] MEDS: AMLODIPINE BESYLATE 5 MG TAB PO SCH (08:37)
[2022-11-08] MEDS: CARVEDILOL 12.5 MG TAB PO SCH ×2 (08:39→18:00)
[2022-11-08] MEDS ORDERED: NOVOLIN N100 UNIT/1 SC (08:56)
[2022-11-08] MEDS ORDERED: NOVOLIN R100 UNIT/1 SC (08:56)
[2022-11-08] MEDS: FUROSEMIDE INJ 10 MG/ML 4 ML VIAL IV SCH ×2 (09:08→20:57)
[2022-11-08] MEDS ORDERED: NPH, HUMAN INSULIN ISOPHANE 100 UNIT/1 ML 3ML VIAL SQ ONE (12:30)
[2022-11-08] MEDS: INSULIN ASPART 70/30 100 UNITS/ML VIAL SC SCH (17:00)
[2022-11-08] MEDS ORDERED: NON-FORMULARY MEDICATION (Glimepiride 4 MG) PO SCH (17:00)
[2022-11-08] MEDS: ENOXAPARIN SOD INJ 40 MG/0.4 ML SYR SC SCH (17:30)
[2022-11-08] MEDS: GLIMEPIRIDE 2 MG TAB PO SCH (18:00)
[2022-11-08] MEDS: ATORVASTATIN 40 MG TAB PO SCH (20:52)
[2022-11-08] MEDS ORDERED: INSULIN GLARGINE 100 UNITS/ML VIAL SQ SCH (21:00)
[2022-11-08] MEDS ORDERED: FUROSEMIDE40 MG PO (23:11)
[2022-11-08] MEDS ORDERED: COREG12.5 MG PO (23:11)
[2022-11-09 00:49] VITALS: BP 124/52
[2022-11-09 05:41] LABS: ANION GAP 15.4 mmol/L (8-16); CALCIUM 9.3 mg/dL (8.4-10.2); CREATININE, SERUM 1.22 mg/dL (0.57-1.11); MAGNESIUM 1.8 MG/DL (1.3-2.1); POTASSIUM 4.4 mmol/L (3.5-5.1)
[2022-11-09 06:04] VITALS: BP 140/46
[2022-11-09 08:00] VITALS: BP 141/82
[2022-11-09] MEDS ORDERED: CARVEDILOL 12.5 MG TAB PO SCH (08:00)
[2022-11-09 08:26] VITALS: BP 141/52
[2022-11-09] MEDS: AMLODIPINE BESYLATE 5 MG TAB PO SCH (08:28)
[2022-11-09] MEDS: MULTIVITAMINS/MINERALS TAB PO SCH (08:28)
[2022-11-09] MEDS: PANTOPRAZOLE SOD 40 MG TABEC PO SCH (08:28)
[2022-11-09] MEDS: GLIMEPIRIDE 2 MG TAB PO SCH (08:29)
[2022-11-09] MEDS: POTASSIUM CHLORIDE 10MEQ EA PO SCH (08:31)
[2022-11-09] MEDS: INSULIN ASPART 70/30 100 UNITS/ML VIAL SC SCH (08:39)
[2022-11-09] MEDS: INSULIN REGULAR, HUMAN 100 UNIT/1 ML SQ SCH (08:42)
[2022-11-09] MEDS: FUROSEMIDE INJ 10 MG/ML 4 ML VIAL IV SCH (08:43)
[2022-11-09] MEDS ORDERED: ASPIRIN 81 MG ENTERIC COATED PO SCH (09:00)
== END 2022-11-09 11:06 | disposition home or self-care (01) | DRG 291 ==
LOC: ER 20:09 → ERHOLD 20:47 → MED/SURG 11-07 13:56
PROVIDERS: ADMIT Internal Medicine; ATTEND Internal Medicine
DX: I13.0 Hypertensive heart and chronic kidney disease with heart failure and stage 1 through stage 4 chronic kidney disease, or unspecified chronic kidney disease (principal); I50.33 Acute on chronic diastolic (congestive) heart failure; J96.01 Acute respiratory failure with hypoxia; N17.9 Acute kidney failure, unspecified; I16.1 Hypertensive emergency; N18.9 Chronic kidney disease, unspecified; E11.22 Type 2 diabetes mellitus with diabetic chronic kidney disease; E11.65 Type 2 diabetes mellitus with hyperglycemia; I25.2 Old myocardial infarction; E03.9 Hypothyroidism, unspecified; I25.10 Atherosclerotic heart disease of native coronary artery without angina pectoris; K21.9 Gastro-esophageal reflux disease without esophagitis; E78.5 Hyperlipidemia, unspecified; E11.21 Type 2 diabetes mellitus with diabetic nephropathy; E11.40 Type 2 diabetes mellitus with diabetic neuropathy, unspecified; Z79.4 Long term (current) use of insulin; Z20.822 Contact with and (suspected) exposure to COVID-19; Z90.49 Acquired absence of other specified parts of digestive tract; Z95.1 Presence of aortocoronary bypass graft
CPT/HCPCS: 36415; 51700; 71045; 80048; 80053; 80307; 82550; 82553; 82948; 83605; 83690; 83735; 83880; 84484; 85025; 85379; 93005; 93306; 94640; 94760; 94799; 99252; 99285; J0360; J1650; J1815; J1817; J1940; J2405

== ENCOUNTER 2023-02-15 15:28 | Inpatient (IN) | payer MEDICARE ==
[~2023-02-15] VITALS: Ht 154.9 cm; Wt 88.5 kg
[2023-02-15] VITALS (13 sets, daily range): BP systolic 126–151; BP diastolic 42–58; PULSE 64–83; RESP 13–27; TEMP 97.8–98.1; O2SAT 100
[~2023-02-15 15:28] MED LIST changes: +ASPIRIN EC81 MG PO; +CENTRUM ADULTS1 EACH PO; +NOVOLIN N100 UNIT/1 SC; +NOVOLIN R100 UNIT/1 SC
[2023-02-15] MEDS ORDERED: NITROGLYCERIN 2% OINT 1 GM PKT TOP ONE (15:45)
[2023-02-15 16:06] LABS: BASOPHILS % 0.4 % (0.0-1.0); EOSINOPHILS # (AUTO) 0.3 (0.0-0.4); EOSINOPHILS % 3.1 % (0.0-6.0); HEMATOCRIT 36.6 % (34.2-44.1); LYMPHOCYTES # (AUTO) 2.5 (1.0-3.2); LYMPHOCYTES % 28.1 % (18.0-39.1); MEAN CORPUSCULAR HEMOGLOBIN 29.6 pg (28-32); MEAN CORPUSCULAR HGB CONC 32.8 g/dL (31-35); MEAN CORPUSCULAR VOLUME 90.4 fL (81-99); MONOCYTES # (AUTO) 0.9 (0.2-0.8); MONOCYTES % 10.3 % (4.4-11.3); NEUTROPHILS # (AUTO) 5.2 (2.1-6.9); NEUTROPHILS % 57.4 % (38.7-80.0); PLATELET COUNT 280 x10e3/uL (140-360); RED BLOOD COUNT 4.05 x10e6/uL (3.6-5.1); RED CELL DISTRIBUTION WIDTH 14.1 % (11.7-14.4)
[2023-02-15 16:07] LABS: ABG HCO3 28 mmol/L (22-26); ABG PCO2 45 mmHg (35-45); ABG PO2 179 mmHg (80-105); ABG TCO2 29
[2023-02-15] MEDS ORDERED: CLONIDINE HCL0.1 MG PO (16:13)
[2023-02-15] MEDS ORDERED: CARVEDILOL25 MG PO (16:13)
[2023-02-15] MEDS ORDERED: MONTELUKAST SOD10 MG PO (16:13)
[2023-02-15] MEDS ORDERED: FUROSEMIDE20 MG PO (16:13)
[2023-02-15] MEDS ORDERED: GABAPENTIN100 MG PO (16:13)
[2023-02-15] MEDS ORDERED: IBUPROFEN800 MG PO (16:13)
[2023-02-15 16:18] LABS: ALBUMIN 3.8 g/dL (3.5-5.0); ALBUMIN/GLOBULIN RATIO 0.9 (0.8-2.0); ANION GAP 17.2 mmol/L (8-16); CALCIUM 9.2 mg/dL (8.4-10.2); CREATININE, SERUM 1.1 mg/dL (0.57-1.11)
[2023-02-15 16:24] LABS: POTASSIUM 5.2 mmol/L (3.5-5.1)
[2023-02-15] MEDS ORDERED: FUROSEMIDE INJ 10 MG/ML 4 ML VIAL IV ONE (16:45)
[2023-02-15] MEDS ORDERED: SODIUM CHLORIDE FLUSH 10 ML SYR INJ PRN (16:45)
[2023-02-15] MEDS ORDERED: ONDANSETRON HCL INJ 2MG/ML 2ML 2 MG/ML VIAL IV PRN (16:45)
[2023-02-15] MEDS ORDERED: ASPIRIN 81 MG CHEW TAB PO ONE (16:45)
[2023-02-15] MEDS ORDERED: DEXTROSE 50% SYRINGE 50 ML IV PRN (17:00)
[2023-02-15] MEDS: GABAPENTIN 100 MG CAP PO SCH (20:07)
[2023-02-15] MEDS: INSULIN REGULAR, HUMAN 100 UNIT/1 ML SQ SCH (20:08)
[2023-02-15] MEDS ORDERED: FUROSEMIDE INJ 10 MG/ML 4 ML VIAL IV SCH (21:00)
[2023-02-15] MEDS: INSULIN GLARGINE 100 UNITS/ML VIAL SQ SCH (21:36)
[2023-02-16] VITALS (31 sets, daily range): BP systolic 110–158; BP diastolic 38–78; PULSE 60–72; RESP 5–26; TEMP 98.1–98.2; O2SAT 100
[2023-02-16] MEDS: INSULIN REGULAR, HUMAN 100 UNIT/1 ML SQ SCH ×4 (07:30→20:53)
[2023-02-16 07:41] LABS: BASOPHILS % 0.3 % (0.0-1.0); EOSINOPHILS # (AUTO) 0.3 (0.0-0.4); EOSINOPHILS % 3.1 % (0.0-6.0); HEMATOCRIT 32.9 % (34.2-44.1); HEMOGLOBIN 10.8 g/dL (12.0-16.0); LYMPHOCYTES # (AUTO) 2.4 (1.0-3.2); LYMPHOCYTES % 25.7 % (18.0-39.1); MEAN CORPUSCULAR HEMOGLOBIN 29.5 pg (28-32); MEAN CORPUSCULAR HGB CONC 32.8 g/dL (31-35); MEAN CORPUSCULAR VOLUME 89.9 fL (81-99); MONOCYTES # (AUTO) 0.9 (0.2-0.8); NEUTROPHILS # (AUTO) 5.8 (2.1-6.9); NEUTROPHILS % 61.5 % (38.7-80.0); PLATELET COUNT 262 x10e3/uL (140-360); RED BLOOD COUNT 3.66 x10e6/uL (3.6-5.1)
[2023-02-16 08:15] LABS: ALBUMIN 3.3 g/dL (3.5-5.0); ALBUMIN/GLOBULIN RATIO 0.9 (0.8-2.0); ANION GAP 14.6 mmol/L (8-16); CALCIUM 8.8 mg/dL (8.4-10.2); CREATININE, SERUM 0.82 mg/dL (0.57-1.11); POTASSIUM 3.6 mmol/L (3.5-5.1)
[2023-02-16] MEDS: AMLODIPINE BESYLATE 5 MG TAB PO SCH (08:56)
[2023-02-16] MEDS: PANTOPRAZOLE SOD 40 MG TABEC PO SCH (08:56)
[2023-02-16] MEDS: GABAPENTIN 100 MG CAP PO SCH ×3 (08:56→20:50)
[2023-02-16] MEDS: ASPIRIN 81 MG ENTERIC COATED PO SCH (08:57)
[2023-02-16] MEDS: MONTELUKAST SODIUM 10 MG TAB PO SCH (08:57)
[2023-02-16] MEDS: FUROSEMIDE INJ 10 MG/ML 4 ML VIAL IV SCH ×2 (08:57→20:50)
[2023-02-16] MEDS: INSULIN GLARGINE 100 UNITS/ML VIAL SQ SCH (20:52)
[2023-02-16] MEDS: HYDROCODONE/APAP 5MG-325MG TAB PO PRN (23:42)
[2023-02-17] VITALS (19 sets, daily range): BP systolic 105–170; BP diastolic 44–68; PULSE 67–79; RESP 11–21; TEMP 97.6–98.3; O2SAT 100
[2023-02-17 06:31] LABS: BASOPHILS % 0.5 % (0.0-1.0); EOSINOPHILS # (AUTO) 0.3 (0.0-0.4); HEMATOCRIT 34.9 % (34.2-44.1); HEMOGLOBIN 11.4 g/dL (12.0-16.0); LYMPHOCYTES # (AUTO) 2.4 (1.0-3.2); LYMPHOCYTES % 27.3 % (18.0-39.1); MEAN CORPUSCULAR HEMOGLOBIN 29.8 pg (28-32); MEAN CORPUSCULAR HGB CONC 32.7 g/dL (31-35); MEAN CORPUSCULAR VOLUME 91.1 fL (81-99); MONOCYTES % 11.4 % (4.4-11.3); NEUTROPHILS % 57.5 % (38.7-80.0); PLATELET COUNT 278 x10e3/uL (140-360); RED BLOOD COUNT 3.83 x10e6/uL (3.6-5.1); RED CELL DISTRIBUTION WIDTH 14.2 % (11.7-14.4)
[2023-02-17 07:03] LABS: ALBUMIN 3.4 g/dL (3.5-5.0); ALBUMIN/GLOBULIN RATIO 0.9 (0.8-2.0); CALCIUM 9.1 mg/dL (8.4-10.2); CREATININE, SERUM 0.85 mg/dL (0.57-1.11)
[2023-02-17] MEDS: INSULIN REGULAR, HUMAN 100 UNIT/1 ML SQ SCH ×4 (07:41→20:23)
[2023-02-17] MEDS: FUROSEMIDE INJ 10 MG/ML 4 ML VIAL IV SCH ×2 (09:39→20:15)
[2023-02-17] MEDS: MONTELUKAST SODIUM 10 MG TAB PO SCH (09:40)
[2023-02-17] MEDS: AMLODIPINE BESYLATE 5 MG TAB PO SCH (09:40)
[2023-02-17] MEDS: ASPIRIN 81 MG ENTERIC COATED PO SCH (09:40)
[2023-02-17] MEDS: GABAPENTIN 100 MG CAP PO SCH ×3 (09:40→20:15)
[2023-02-17] MEDS: PANTOPRAZOLE SOD 40 MG TABEC PO SCH (09:40)
[2023-02-17] MEDS: HYDROCODONE/APAP 5MG-325MG TAB PO PRN ×2 (09:46→23:39)
[2023-02-17] MEDS: ZOLPIDEM TARTRATE 5 MG TAB PO PRN (20:15)
[2023-02-17] MEDS: INSULIN GLARGINE 100 UNITS/ML VIAL SQ SCH (20:23)
[2023-02-18] VITALS (30 sets, daily range): BP systolic 122–169; BP diastolic 46–127; PULSE 71–88; RESP 11–23; TEMP 97.5–98.3; O2SAT 96–100
[2023-02-18 07:16] LABS: BASOPHILS % 0.4 % (0.0-1.0); EOSINOPHILS # (AUTO) 0.4 (0.0-0.4); EOSINOPHILS % 4.1 % (0.0-6.0); HEMATOCRIT 37.4 % (34.2-44.1); HEMOGLOBIN 12.4 g/dL (12.0-16.0); LYMPHOCYTES # (AUTO) 2.3 (1.0-3.2); LYMPHOCYTES % 24.7 % (18.0-39.1); MEAN CORPUSCULAR HEMOGLOBIN 29.8 pg (28-32); MEAN CORPUSCULAR HGB CONC 33.2 g/dL (31-35); MEAN CORPUSCULAR VOLUME 89.9 fL (81-99); MONOCYTES # (AUTO) 0.9 (0.2-0.8); MONOCYTES % 10.1 % (4.4-11.3); NEUTROPHILS # (AUTO) 5.6 (2.1-6.9); NEUTROPHILS % 60.4 % (38.7-80.0); PLATELET COUNT 322 x10e3/uL (140-360); RED BLOOD COUNT 4.16 x10e6/uL (3.6-5.1); RED CELL DISTRIBUTION WIDTH 13.8 % (11.7-14.4)
[2023-02-18 07:30] LABS: ALBUMIN 3.7 g/dL (3.5-5.0); ALBUMIN/GLOBULIN RATIO 0.9 (0.8-2.0); CALCIUM 9.6 mg/dL (8.4-10.2); CREATININE, SERUM 0.99 mg/dL (0.57-1.11)
[2023-02-18] MEDS: NITROGLYCERIN 0.4 MG SUBL SL PRN ×3 (08:46→21:33)
[2023-02-18] MEDS: INSULIN REGULAR, HUMAN 100 UNIT/1 ML SQ SCH ×4 (08:55→21:31)
[2023-02-18] MEDS ORDERED: METOPROLOL SUCCINATE 25 MG TAB XL PO SCH (09:00)
[2023-02-18] MEDS ORDERED: LOSARTAN POTASSIUM 25 MG TAB PO SCH (09:00)
[2023-02-18 09:05] LABS: FREE T4 (FREE THYROXINE) 0.98 ng/dL (0.8-1.8); THYROID STIMULATING HORMONE 1.665 uIU/mL (0.350-4.940)
[2023-02-18] MEDS: MONTELUKAST SODIUM 10 MG TAB PO SCH (09:24)
[2023-02-18] MEDS: FUROSEMIDE INJ 10 MG/ML 4 ML VIAL IV SCH ×2 (09:24→21:01)
[2023-02-18] MEDS: AMLODIPINE BESYLATE 5 MG TAB PO SCH (09:25)
[2023-02-18] MEDS: GABAPENTIN 100 MG CAP PO SCH ×3 (09:25→21:00)
[2023-02-18] MEDS: PANTOPRAZOLE SOD 40 MG TABEC PO SCH (09:25)
[2023-02-18] MEDS: ASPIRIN 81 MG ENTERIC COATED PO SCH (09:26)
[2023-02-18] MEDS: HYDROCODONE/APAP 5MG-325MG TAB PO PRN (15:05)
[2023-02-18] MEDS ORDERED: INSULIN REGULAR, HUMAN 100 UNIT/1 ML SQ ONE (18:15)
[2023-02-18] MEDS: METOPROLOL SUCCINATE 25 MG TAB XL PO SCH (21:00)
[2023-02-18] MEDS: ZOLPIDEM TARTRATE 5 MG TAB PO PRN (21:01)
[2023-02-18] MEDS: INSULIN GLARGINE 100 UNITS/ML VIAL SQ SCH (21:30)
[2023-02-19] VITALS (10 sets, daily range): BP systolic 131–163; BP diastolic 48–66; PULSE 75–87; RESP 16–19; TEMP 97.5–98.8; O2SAT 97–100
[2023-02-19 06:04] LABS: BASOPHILS # (AUTO) 0.1 (0.0-0.1); BASOPHILS % 0.7 % (0.0-1.0); EOSINOPHILS # (AUTO) 0.3 (0.0-0.4); EOSINOPHILS % 2.5 % (0.0-6.0); HEMATOCRIT 38.5 % (34.2-44.1); HEMOGLOBIN 12.6 g/dL (12.0-16.0); LYMPHOCYTES % 28.3 % (18.0-39.1); MEAN CORPUSCULAR HEMOGLOBIN 30.3 pg (28-32); MEAN CORPUSCULAR HGB CONC 32.7 g/dL (31-35); MEAN CORPUSCULAR VOLUME 92.5 fL (81-99); MONOCYTES % 9.2 % (4.4-11.3); NEUTROPHILS # (AUTO) 6.3 (2.1-6.9); PLATELET COUNT 333 x10e3/uL (140-360); RED BLOOD COUNT 4.16 x10e6/uL (3.6-5.1); RED CELL DISTRIBUTION WIDTH 13.7 % (11.7-14.4)
[2023-02-19 06:33] LABS: ALBUMIN 3.7 g/dL (3.5-5.0); ALBUMIN/GLOBULIN RATIO 0.9 (0.8-2.0); ANION GAP 15.3 mmol/L (8-16); CALCIUM 9.7 mg/dL (8.4-10.2); CREATININE, SERUM 1.07 mg/dL (0.57-1.11); POTASSIUM 4.3 mmol/L (3.5-5.1)
[2023-02-19] MEDS: INSULIN REGULAR, HUMAN 100 UNIT/1 ML SQ SCH ×4 (07:22→21:00)
[2023-02-19] MEDS: MONTELUKAST SODIUM 10 MG TAB PO SCH (09:00)
[2023-02-19] MEDS: GABAPENTIN 100 MG CAP PO SCH ×3 (09:00→21:16)
[2023-02-19] MEDS: METOPROLOL SUCCINATE 25 MG TAB XL PO SCH ×2 (09:00→21:17)
[2023-02-19] MEDS ORDERED: ONDANSETRON HCL 4 MG ORAL DISINTEGRATING TAB PO PRN (09:00)
[2023-02-19] MEDS: LOSARTAN POTASSIUM 25 MG TAB PO SCH (09:00)
[2023-02-19] MEDS: PANTOPRAZOLE SOD 40 MG TABEC PO SCH (09:00)
[2023-02-19] MEDS: FUROSEMIDE INJ 10 MG/ML 4 ML VIAL IV SCH ×2 (09:00→21:15)
[2023-02-19] MEDS: ASPIRIN 81 MG ENTERIC COATED PO SCH (09:00)
[2023-02-19] MEDS ORDERED: REGADENOSON 0.4 MG/5 ML SYR IV ONE (10:18)
[2023-02-19] MEDS: ZOLPIDEM TARTRATE 5 MG TAB PO PRN (21:19)
[2023-02-19] MEDS: INSULIN GLARGINE 100 UNITS/ML VIAL SQ SCH (21:51)
[2023-02-20] VITALS (9 sets, daily range): BP systolic 134–166; BP diastolic 55–75; PULSE 74–87; RESP 18–20; TEMP 97.6–98.6; O2SAT 96–100
[2023-02-20 05:52] LABS: BASOPHILS # (AUTO) 0.1 (0.0-0.1); BASOPHILS % 0.6 % (0.0-1.0); EOSINOPHILS # (AUTO) 0.3 (0.0-0.4); EOSINOPHILS % 3.3 % (0.0-6.0); HEMATOCRIT 37.8 % (34.2-44.1); HEMOGLOBIN 12.4 g/dL (12.0-16.0); LYMPHOCYTES # (AUTO) 2.7 (1.0-3.2); MEAN CORPUSCULAR HEMOGLOBIN 29.6 pg (28-32); MEAN CORPUSCULAR HGB CONC 32.8 g/dL (31-35); MEAN CORPUSCULAR VOLUME 90.2 fL (81-99); MONOCYTES # (AUTO) 0.9 (0.2-0.8); NEUTROPHILS # (AUTO) 5.3 (2.1-6.9); NEUTROPHILS % 56.7 % (38.7-80.0); PLATELET COUNT 329 x10e3/uL (140-360); RED BLOOD COUNT 4.19 x10e6/uL (3.6-5.1); RED CELL DISTRIBUTION WIDTH 13.8 % (11.7-14.4)
[2023-02-20 06:11] LABS: ANION GAP 14.9 mmol/L (8-16); CALCIUM 9.5 mg/dL (8.4-10.2); CREATININE, SERUM 1.02 mg/dL (0.57-1.11); POTASSIUM 3.9 mmol/L (3.5-5.1)
[2023-02-20] MEDS: LOSARTAN POTASSIUM 25 MG TAB PO SCH (09:28)
[2023-02-20] MEDS: PANTOPRAZOLE SOD 40 MG TABEC PO SCH (09:28)
[2023-02-20] MEDS: METOPROLOL SUCCINATE 25 MG TAB XL PO SCH ×2 (09:29→21:34)
[2023-02-20] MEDS: ASPIRIN 81 MG ENTERIC COATED PO SCH (09:29)
[2023-02-20] MEDS: GABAPENTIN 100 MG CAP PO SCH ×3 (09:29→21:34)
[2023-02-20] MEDS: FUROSEMIDE 40 MG TAB PO SCH ×2 (09:29→16:49)
[2023-02-20] MEDS: MONTELUKAST SODIUM 10 MG TAB PO SCH (09:29)
[2023-02-20] MEDS: INSULIN REGULAR, HUMAN 100 UNIT/1 ML SQ SCH ×2 (09:34→16:46)
[2023-02-20] MEDS: NPH, HUMAN INSULIN ISOPHANE 100 UNIT/1 ML 3ML VIAL SQ SCH ×2 (11:24→17:15)
[2023-02-21] VITALS (7 sets, daily range): BP systolic 127–167; BP diastolic 51–63; PULSE 71–77; RESP 18–20; TEMP 98–98.6; O2SAT 95–99
[2023-02-21] MEDS: INSULIN REGULAR, HUMAN 100 UNIT/1 ML SQ SCH ×3 (07:30→16:30)
[2023-02-21] MEDS: NPH, HUMAN INSULIN ISOPHANE 100 UNIT/1 ML 3ML VIAL SQ SCH ×2 (09:00→17:49)
[2023-02-21] MEDS: ASPIRIN 81 MG ENTERIC COATED PO SCH (10:16)
[2023-02-21] MEDS: LOSARTAN POTASSIUM 25 MG TAB PO SCH (10:16)
[2023-02-21] MEDS: PANTOPRAZOLE SOD 40 MG TABEC PO SCH (10:17)
[2023-02-21] MEDS: FUROSEMIDE 40 MG TAB PO SCH ×2 (10:17→17:45)
[2023-02-21] MEDS: MONTELUKAST SODIUM 10 MG TAB PO SCH (10:17)
[2023-02-21] MEDS: GABAPENTIN 100 MG CAP PO SCH ×2 (10:17→16:02)
[2023-02-21] MEDS: METOPROLOL SUCCINATE 25 MG TAB XL PO SCH (10:18)
[2023-02-21] MEDS ORDERED: LASIX40 MG PO (18:51)
== END 2023-02-21 20:00 | disposition home or self-care (01) | DRG 291 ==
LOC: ER 15:39 → ERHOLD 16:38 → ICU 18:55 → MED/SURG 02-19 00:33
PROVIDERS: ADMIT Internal Medicine; ATTEND Internal Medicine
PROC: 5A09357 Assistance with Respiratory Ventilation, Less than 24 Consecutive Hours, Continuous Positive Airway Pressure (ICD-10-PCS; 2023-02-15)
PROC: 5A0935A Assistance with Respiratory Ventilation, Less than 24 Consecutive Hours, High Flow/Velocity Cannula (ICD-10-PCS; 2023-02-15)
PROC: 3E033HZ Introduction of Radioactive Substance into Peripheral Vein, Percutaneous Approach (ICD-10-PCS; principal; 2023-02-19)
PROC: 4A12XM4 Monitoring of Cardiac Stress, External Approach (ICD-10-PCS; 2023-02-19)
PROC: C22G1ZZ Tomographic (Tomo) Nuclear Medicine Imaging of Myocardium using Technetium 99m (Tc-99m) (ICD-10-PCS; 2023-02-19)
DX: I13.0 Hypertensive heart and chronic kidney disease with heart failure and stage 1 through stage 4 chronic kidney disease, or unspecified chronic kidney disease (principal); I50.33 Acute on chronic diastolic (congestive) heart failure; J96.01 Acute respiratory failure with hypoxia; N18.4 Chronic kidney disease, stage 4 (severe); I16.1 Hypertensive emergency; I25.10 Atherosclerotic heart disease of native coronary artery without angina pectoris; I25.2 Old myocardial infarction; E03.9 Hypothyroidism, unspecified; E78.00 Pure hypercholesterolemia, unspecified; E11.22 Type 2 diabetes mellitus with diabetic chronic kidney disease; M54.9 Dorsalgia, unspecified; G89.29 Other chronic pain; E11.40 Type 2 diabetes mellitus with diabetic neuropathy, unspecified; M17.0 Bilateral primary osteoarthritis of knee; M47.812 Spondylosis without myelopathy or radiculopathy, cervical region; M48.02 Spinal stenosis, cervical region; Z95.1 Presence of aortocoronary bypass graft; Z79.4 Long term (current) use of insulin; Z90.49 Acquired absence of other specified parts of digestive tract; Z20.822 Contact with and (suspected) exposure to COVID-19; Z79.82 Long term (current) use of aspirin
CPT/HCPCS: 0223U; 36415; 36600; 51700; 71045; 72141; 72148; 78452; 80048; 80053; 82805; 82947; 82948; 83880; 84439; 84443; 84484; 85025; 93005; 93017; 93306; 94660; 94760; 94799; 96360; 96372; 99284; A9502; J1815; J1940; Q0162

== ENCOUNTER 2023-07-21 11:37 | Inpatient (IN) | payer MEDICARE ==
[~2023-07-21] VITALS: Ht 154.9 cm; Wt 97.1 kg
[~2023-07-21 11:37] MED LIST changes: +CARVEDILOL25 MG PO; +FUROSEMIDE20 MG PO; +GABAPENTIN100 MG PO; +IBUPROFEN800 MG PO; +LASIX40 MG PO; +MONTELUKAST SOD10 MG PO; +NORVASC10 MG PO
[2023-07-21] MEDS ORDERED: SODIUM CHLORIDE FLUSH 10 ML SYR IV PRN (12:00)
[2023-07-21 12:25] LABS: BASOPHILS # (AUTO) 0.1 (0.0-0.1); BASOPHILS % 0.5 % (0.0-1.0); EOSINOPHILS # (AUTO) 0.2 (0.0-0.4); EOSINOPHILS % 1.5 % (0.0-6.0); HEMATOCRIT 33.6 % (34.2-44.1); HEMOGLOBIN 11.1 g/dL (12.0-16.0); LYMPHOCYTES # (AUTO) 1.7 (1.0-3.2); LYMPHOCYTES % 15.7 % (18.0-39.1); MEAN CORPUSCULAR HEMOGLOBIN 28.9 pg (28-32); MEAN CORPUSCULAR VOLUME 87.5 fL (81-99); MONOCYTES # (AUTO) 0.7 (0.2-0.8); MONOCYTES % 6.8 % (4.4-11.3); NEUTROPHILS # (AUTO) 7.9 (2.1-6.9); NEUTROPHILS % 75.2 % (38.7-80.0); PLATELET COUNT 273 x10e3/uL (140-360); RED BLOOD COUNT 3.84 x10e6/uL (3.6-5.1)
[2023-07-21 12:54] LABS: ALBUMIN 3.3 g/dL (3.5-5.0); ALBUMIN/GLOBULIN RATIO 0.9 (0.8-2.0); ANION GAP 13.8 mmol/L (8-16); CALCIUM 8.4 mg/dL (8.4-10.2); CREATININE, SERUM 0.91 mg/dL (0.57-1.11); POTASSIUM 3.8 mmol/L (3.5-5.1)
[2023-07-21] MEDS ORDERED: ASPIRIN 81 MG CHEW TAB PO ONE ×2 (13:00→14:00)
[2023-07-21] MEDS ORDERED: ONDANSETRON HCL INJ 2MG/ML 2ML 2 MG/ML VIAL IV PRN (14:00)
[2023-07-21] MEDS ORDERED: SODIUM CHLORIDE FLUSH 10 ML SYR INJ PRN (14:00)
[2023-07-21] MEDS ORDERED: AMLODIPINE BESYL5 MG PO (15:59)
[2023-07-21] MEDS ORDERED: LIPITOR20 MG PO (15:59)
[2023-07-21] MEDS ORDERED: TYLENOL325 M2 PO (15:59)
[2023-07-21] MEDS ORDERED: CENTRUM ADULTS1 EACH PO (15:59)
[2023-07-21 16:20] VITALS: BP 134/55; PULSE 66; RESP 18; TEMP 97.4; O2SAT 96
[2023-07-21 16:27] VITALS: BP 134/55; PULSE 66; RESP 18; TEMP 97.4; O2SAT 96
[2023-07-21 16:51] VITALS: PULSE 74; RESP 20; O2SAT 96
[2023-07-21 20:00] VITALS: BP 134/55; PULSE 74; RESP 20; TEMP 97.4; O2SAT 96
[2023-07-21 20:28] VITALS: BP 116/41; PULSE 67; RESP 21; TEMP 98.3; O2SAT 97
[2023-07-22] VITALS (10 sets, daily range): BP systolic 113–145; BP diastolic 41–54; PULSE 59–74; RESP 17–21; TEMP 98.4–98.7; O2SAT 94–100
[2023-07-22 06:35] LABS: BASOPHILS # (AUTO) 0.1 (0.0-0.1); BASOPHILS % 0.5 % (0.0-1.0); EOSINOPHILS # (AUTO) 0.2 (0.0-0.4); EOSINOPHILS % 2.1 % (0.0-6.0); HEMATOCRIT 32.7 % (34.2-44.1); HEMOGLOBIN 10.8 g/dL (12.0-16.0); LYMPHOCYTES % 29.8 % (18.0-39.1); MEAN CORPUSCULAR HEMOGLOBIN 29.2 pg (28-32); MEAN CORPUSCULAR VOLUME 88.4 fL (81-99); MONOCYTES % 10.1 % (4.4-11.3); NEUTROPHILS # (AUTO) 5.8 (2.1-6.9); NEUTROPHILS % 57.3 % (38.7-80.0); PLATELET COUNT 247 x10e3/uL (140-360); WHITE BLOOD COUNT 10.08 x10e3/uL (4.8-10.8)
[2023-07-22 07:13] LABS: ALBUMIN 3.2 g/dL (3.5-5.0); ALBUMIN/GLOBULIN RATIO 0.9 (0.8-2.0); ANION GAP 11.9 mmol/L (8-16); CALCIUM 8.6 mg/dL (8.4-10.2); CREATININE, SERUM 0.83 mg/dL (0.57-1.11); POTASSIUM 3.9 mmol/L (3.5-5.1)
[2023-07-22] MEDS: PANTOPRAZOLE SOD 40 MG TABEC PO SCH (08:46)
[2023-07-22] MEDS: ASPIRIN 81 MG ENTERIC COATED PO SCH (08:47)
[2023-07-22] MEDS: FUROSEMIDE 40 MG TAB PO SCH ×2 (08:47→16:53)
[2023-07-22] MEDS: GABAPENTIN 100 MG CAP PO SCH ×3 (08:47→21:07)
[2023-07-22] MEDS: MULTIVITAMINS/MINERALS TAB PO SCH (08:47)
[2023-07-22] MEDS: GLIMEPIRIDE 2 MG TAB PO SCH ×2 (08:47→16:53)
[2023-07-22] MEDS: CARVEDILOL 12.5 MG TAB PO SCH ×2 (08:48→21:07)
[2023-07-22] MEDS: MONTELUKAST SODIUM 10 MG TAB PO SCH (08:48)
[2023-07-22] MEDS: AMLODIPINE BESYLATE 5 MG TAB PO SCH (08:49)
[2023-07-22] MEDS: ACETAMINOPHEN 325 MG TAB PO SCH ×2 (08:49→16:54)
[2023-07-22] MEDS: TRAMADOL HCL 50 MG TAB PO PRN ×2 (11:23→21:08)
[2023-07-22] MEDS: MAGNESIUM HYDROXIDE 30 ML UDC PO PRN ×2 (11:23→21:08)
[2023-07-22] MEDS: NPH, HUMAN INSULIN ISOPHANE 100 UNIT/1 ML 3ML VIAL SQ SCH ×2 (11:28→16:57)
[2023-07-22] MEDS: INSULIN REGULAR, HUMAN 100 UNIT/1 ML SQ SCH ×2 (11:29→16:56)
[2023-07-22] MEDS: ATORVASTATIN 20 MG TAB PO SCH (21:08)
[2023-07-23] MEDS ORDERED: ACETAMINOPHEN 325 MG TAB PO PRN (02:30)
[2023-07-23] MEDS ORDERED: ENOXAPARIN SODIUM INJ 100 MG/ML SYR SC SCH (02:45)
[2023-07-23] MEDS ORDERED: HEPARIN SOD (PORCINE) 5,000 UNIT/ML VIAL IV ONE (03:00)
[2023-07-23] MEDS ORDERED: HEPARIN 25,000 UNIT/D5W 250ML 800 UNIT in DEXTROSE 5% 250ML 250 ML IV SCH (03:00)
[2023-07-23 03:54] LABS: BASOPHILS # (AUTO) 0.1 (0.0-0.1); BASOPHILS % 0.6 % (0.0-1.0); EOSINOPHILS # (AUTO) 0.3 (0.0-0.4); EOSINOPHILS % 2.7 % (0.0-6.0); HEMOGLOBIN 10.5 g/dL (12.0-16.0); LYMPHOCYTES # (AUTO) 3.2 (1.0-3.2); LYMPHOCYTES % 31.9 % (18.0-39.1); MEAN CORPUSCULAR HEMOGLOBIN 28.8 pg (28-32); MEAN CORPUSCULAR HGB CONC 32.8 g/dL (31-35); MEAN CORPUSCULAR VOLUME 87.9 fL (81-99); MONOCYTES # (AUTO) 1.1 (0.2-0.8); MONOCYTES % 11.6 % (4.4-11.3); NEUTROPHILS # (AUTO) 5.2 (2.1-6.9); NEUTROPHILS % 52.9 % (38.7-80.0); PLATELET COUNT 240 x10e3/uL (140-360); RED BLOOD COUNT 3.64 x10e6/uL (3.6-5.1); WHITE BLOOD COUNT 9.86 x10e3/uL (4.8-10.8)
[2023-07-23] MEDS ORDERED: HEPARIN 25,000 UNIT DRIP IV ONE (03:55)
[2023-07-23 04:10] LABS: ANION GAP 12.9 mmol/L (8-16); CALCIUM 8.7 mg/dL (8.4-10.2); CREATININE, SERUM 0.91 mg/dL (0.57-1.11); POTASSIUM 3.9 mmol/L (3.5-5.1)
[2023-07-23] MEDS: PANTOPRAZOLE SOD 40 MG TABEC PO SCH (07:30)
[2023-07-23 08:27] VITALS: BP 131/51; PULSE 58; RESP 17; TEMP 98.4; O2SAT 95
[2023-07-23 08:35] VITALS: BP 131/51; PULSE 58; RESP 17; TEMP 98.9; O2SAT 95
[2023-07-23 08:48] LABS: CHOL/HDL RATIO 3.3 (3.0-3.6)
[2023-07-23] MEDS: GLIMEPIRIDE 2 MG TAB PO SCH ×2 (09:00→16:13)
[2023-07-23] MEDS: INSULIN REGULAR, HUMAN 100 UNIT/1 ML SQ SCH ×2 (09:00→16:18)
[2023-07-23] MEDS: CARVEDILOL 12.5 MG TAB PO SCH ×2 (09:00→22:12)
[2023-07-23] MEDS: NPH, HUMAN INSULIN ISOPHANE 100 UNIT/1 ML 3ML VIAL SQ SCH ×2 (09:00→16:18)
[2023-07-23] MEDS: GABAPENTIN 100 MG CAP PO SCH ×3 (09:00→22:12)
[2023-07-23] MEDS: FUROSEMIDE INJ 10 MG/ML 4 ML VIAL IV SCH ×2 (09:04→16:14)
[2023-07-23] MEDS ORDERED: REGADENOSON 0.4 MG/5 ML SYR IV ONE (12:05)
[2023-07-23 12:19] VITALS: BP 141/57; PULSE 58; RESP 18; TEMP 98.4; O2SAT 96
[2023-07-23] MEDS: MONTELUKAST SODIUM 10 MG TAB PO SCH (13:55)
[2023-07-23] MEDS: ASPIRIN 81 MG ENTERIC COATED PO SCH (13:55)
[2023-07-23] MEDS: AMLODIPINE BESYLATE 5 MG TAB PO SCH (13:55)
[2023-07-23] MEDS: MULTIVITAMINS/MINERALS TAB PO SCH (13:55)
[2023-07-23 16:17] VITALS: BP 127/54; PULSE 60; RESP 20; TEMP 98.8; O2SAT 95
[2023-07-23 20:00] VITALS: BP 120/42; PULSE 17; RESP 17; TEMP 98.8; O2SAT 97
[2023-07-23 21:00] VITALS: BP 120/42; PULSE 17; RESP 17; TEMP 98.8; O2SAT 97
[2023-07-23] MEDS: ATORVASTATIN 20 MG TAB PO SCH (22:12)
[2023-07-24] VITALS (11 sets, daily range): BP systolic 112–136; BP diastolic 46–68; PULSE 59–72; RESP 18–20; TEMP 97.8–99; O2SAT 95–100
[2023-07-24] MEDS: PANTOPRAZOLE SOD 40 MG TABEC PO SCH (07:30)
[2023-07-24] MEDS: ASPIRIN 81 MG ENTERIC COATED PO SCH (08:56)
[2023-07-24] MEDS: MULTIVITAMINS/MINERALS TAB PO SCH (08:56)
[2023-07-24] MEDS: MONTELUKAST SODIUM 10 MG TAB PO SCH (08:56)
[2023-07-24] MEDS: AMLODIPINE BESYLATE 5 MG TAB PO SCH (08:56)
[2023-07-24] MEDS: GLIMEPIRIDE 2 MG TAB PO SCH ×2 (08:56→16:39)
[2023-07-24] MEDS: GABAPENTIN 100 MG CAP PO SCH ×3 (08:57→21:30)
[2023-07-24] MEDS: CARVEDILOL 12.5 MG TAB PO SCH ×2 (08:57→21:31)
[2023-07-24] MEDS: FUROSEMIDE INJ 10 MG/ML 4 ML VIAL IV SCH ×2 (08:59→16:38)
[2023-07-24] MEDS: INSULIN REGULAR, HUMAN 100 UNIT/1 ML SQ SCH ×2 (09:00→16:42)
[2023-07-24] MEDS: NPH, HUMAN INSULIN ISOPHANE 100 UNIT/1 ML 3ML VIAL SQ SCH ×2 (09:01→16:41)
[2023-07-24] MEDS ORDERED: ONDANSETRON HCL 4 MG ORAL DISINTEGRATING TAB PO PRN (11:30)
[2023-07-24 15:31] LABS: BASOPHILS # (AUTO) 0.1 (0.0-0.1); BASOPHILS % 0.6 % (0.0-1.0); EOSINOPHILS # (AUTO) 0.3 (0.0-0.4); EOSINOPHILS % 3.4 % (0.0-6.0); HEMATOCRIT 32.5 % (34.2-44.1); HEMOGLOBIN 10.8 g/dL (12.0-16.0); LYMPHOCYTES # (AUTO) 2.6 (1.0-3.2); LYMPHOCYTES % 25.8 % (18.0-39.1); MEAN CORPUSCULAR HGB CONC 33.2 g/dL (31-35); MEAN CORPUSCULAR VOLUME 87.4 fL (81-99); MONOCYTES # (AUTO) 1.2 (0.2-0.8); MONOCYTES % 12.1 % (4.4-11.3); NEUTROPHILS # (AUTO) 5.7 (2.1-6.9); NEUTROPHILS % 57.7 % (38.7-80.0); PLATELET COUNT 267 x10e3/uL (140-360); RED BLOOD COUNT 3.72 x10e6/uL (3.6-5.1); WHITE BLOOD COUNT 9.94 x10e3/uL (4.8-10.8)
[2023-07-24 15:46] LABS: ANION GAP 14.3 mmol/L (8-16); CREATININE, SERUM 0.94 mg/dL (0.57-1.11); POTASSIUM 4.3 mmol/L (3.5-5.1)
[2023-07-24] MEDS: ALBUTEROL SULF 0.083% NEB SOLN 3 ML NEB NEB SCH ×2 (15:59→23:33)
[2023-07-24] MEDS: ATORVASTATIN 20 MG TAB PO SCH (21:31)
[2023-07-25] VITALS (12 sets, daily range): BP systolic 125–248; BP diastolic 42–63; PULSE 56–69; RESP 17–18; TEMP 97.4–98.6; O2SAT 94–99
[2023-07-25] MEDS: ALBUTEROL SULF 0.083% NEB SOLN 3 ML NEB NEB SCH ×3 (07:06→19:49)
[2023-07-25] MEDS: PANTOPRAZOLE SOD 40 MG TABEC PO SCH (09:22)
[2023-07-25] MEDS: SPIRONOLACTONE 25 MG TAB PO SCH (09:22)
[2023-07-25] MEDS: GABAPENTIN 100 MG CAP PO SCH ×3 (09:23→21:04)
[2023-07-25] MEDS: AMLODIPINE BESYLATE 5 MG TAB PO SCH (09:23)
[2023-07-25] MEDS: MULTIVITAMINS/MINERALS TAB PO SCH (09:23)
[2023-07-25] MEDS: GLIMEPIRIDE 2 MG TAB PO SCH ×2 (09:23→16:21)
[2023-07-25] MEDS: MONTELUKAST SODIUM 10 MG TAB PO SCH (09:24)
[2023-07-25] MEDS: FUROSEMIDE INJ 10 MG/ML 4 ML VIAL IV SCH ×2 (09:24→16:21)
[2023-07-25] MEDS: CARVEDILOL 12.5 MG TAB PO SCH ×2 (09:24→21:04)
[2023-07-25] MEDS: ASPIRIN 81 MG ENTERIC COATED PO SCH (09:24)
[2023-07-25] MEDS: INSULIN REGULAR, HUMAN 100 UNIT/1 ML SQ SCH ×2 (09:27→16:23)
[2023-07-25] MEDS: NPH, HUMAN INSULIN ISOPHANE 100 UNIT/1 ML 3ML VIAL SQ SCH ×2 (12:46→16:24)
[2023-07-25] MEDS: ATORVASTATIN 20 MG TAB PO SCH (21:04)
[2023-07-25] MEDS: TRAMADOL HCL 50 MG TAB PO PRN (21:04)
[2023-07-26 04:30] VITALS: BP 124/46; PULSE 59; RESP 18; TEMP 98.4; O2SAT 97
[2023-07-26 07:12] VITALS: PULSE 59; RESP 16; O2SAT 94
[2023-07-26] MEDS: ALBUTEROL SULF 0.083% NEB SOLN 3 ML NEB NEB SCH ×2 (07:12→13:30)
[2023-07-26 08:07] VITALS: BP 137/65; PULSE 62; RESP 20; TEMP 97.8; O2SAT 97
[2023-07-26] MEDS: MULTIVITAMINS/MINERALS TAB PO SCH (09:10)
[2023-07-26] MEDS: CARVEDILOL 12.5 MG TAB PO SCH (09:10)
[2023-07-26] MEDS: SPIRONOLACTONE 25 MG TAB PO SCH (09:10)
[2023-07-26] MEDS: ASPIRIN 81 MG ENTERIC COATED PO SCH (09:10)
[2023-07-26] MEDS: MONTELUKAST SODIUM 10 MG TAB PO SCH (09:11)
[2023-07-26] MEDS: PANTOPRAZOLE SOD 40 MG TABEC PO SCH (09:11)
[2023-07-26] MEDS: AMLODIPINE BESYLATE 5 MG TAB PO SCH (09:11)
[2023-07-26] MEDS: FUROSEMIDE INJ 10 MG/ML 4 ML VIAL IV SCH (09:12)
[2023-07-26] MEDS: GLIMEPIRIDE 2 MG TAB PO SCH ×2 (09:16→16:31)
[2023-07-26] MEDS: MAGNESIUM HYDROXIDE 30 ML UDC PO PRN (09:16)
[2023-07-26] MEDS: GABAPENTIN 100 MG CAP PO SCH ×2 (09:16→16:31)
[2023-07-26] MEDS: NPH, HUMAN INSULIN ISOPHANE 100 UNIT/1 ML 3ML VIAL SQ SCH ×2 (09:21→16:37)
[2023-07-26] MEDS: INSULIN REGULAR, HUMAN 100 UNIT/1 ML SQ SCH ×2 (09:22→16:34)
[2023-07-26 11:58] VITALS: BP 132/65; PULSE 58; RESP 18; TEMP 97.6; O2SAT 98
[2023-07-26 13:31] VITALS: PULSE 58; RESP 16; O2SAT 97
[2023-07-26 13:45] VITALS: PULSE 58; RESP 16; O2SAT 97
[2023-07-26] MEDS ORDERED: FUROSEMIDE80 MG PO (16:06)
[2023-07-26] MEDS ORDERED: FUROSEMIDE40 MG PO (16:07)
[2023-07-26] MEDS ORDERED: FUROSEMIDE 40 MG TAB PO SCH (17:00)
== END 2023-07-26 17:51 | disposition home or self-care (01) | DRG 291 ==
LOC: ER 11:45 → ERHOLD 14:00 → MED/SURG3 15:13 → OBSVTOIN 07-23 09:58
PROVIDERS: ADMIT Internal Medicine; ATTEND Internal Medicine
DX: I11.0 Hypertensive heart disease with heart failure (principal); I50.33 Acute on chronic diastolic (congestive) heart failure; Z68.41 Body mass index [BMI] 40.0-44.9, adult; I25.2 Old myocardial infarction; E03.9 Hypothyroidism, unspecified; I25.10 Atherosclerotic heart disease of native coronary artery without angina pectoris; E66.01 Morbid (severe) obesity due to excess calories; E11.65 Type 2 diabetes mellitus with hyperglycemia; E78.00 Pure hypercholesterolemia, unspecified; Z11.52 Encounter for screening for COVID-19; Z95.1 Presence of aortocoronary bypass graft; Z90.49 Acquired absence of other specified parts of digestive tract; Z79.4 Long term (current) use of insulin; Z79.82 Long term (current) use of aspirin
CPT/HCPCS: 36415; 71045; 71046; 78452; 80048; 80053; 80061; 82550; 82948; 83036; 83880; 84484; 85025; 85730; 93005; 93017; 93306; 94640; 94760; 94799; 99284; A9502; G0378; J1644; J1940; U0002

== ENCOUNTER → 2023-12-25 | Day surgery (SDC) | payer MEDICARE ==
[2023-12-24 11:57] LABS: BASOPHILS # (AUTO) 0.1 (0.0-0.1); BASOPHILS % 0.6 % (0.0-1.0); EOSINOPHILS # (AUTO) 0.2 (0.0-0.4); HEMATOCRIT 37.7 % (34.2-44.1); HEMOGLOBIN 12.7 g/dL (12.0-16.0); LYMPHOCYTES # (AUTO) 2.3 (1.0-3.2); MEAN CORPUSCULAR HEMOGLOBIN 29.1 pg (28-32); MEAN CORPUSCULAR HGB CONC 33.7 g/dL (31-35); MEAN CORPUSCULAR VOLUME 86.5 fL (81-99); MONOCYTES # (AUTO) 0.6 (0.2-0.8); MONOCYTES % 7.2 % (4.4-11.3); NEUTROPHILS # (AUTO) 5.4 (2.1-6.9); PLATELET COUNT 269 x10e3/uL (140-360); RED BLOOD COUNT 4.36 x10e6/uL (3.6-5.1); WHITE BLOOD COUNT 8.63 x10e3/uL (4.8-10.8)
[~2023-12-25] MED LIST changes: +AMLODIPINE BESYL5 MG PO; +EPHEDRINE SULFATE INJ 50 MG/ML VIAL ONE; +FENTANYL CITRATE/PF 100MCG/2 ML INJ ONE; +FUROSEMIDE80 MG PO; +GLYCOPYRROLATE INJ 0.2 MG/ML VIAL ONE; +LIDOCAINE HCL 2% LOCAL INJ 5 ML SDV VIAL INJ ONE; +LIPITOR20 MG PO; +METOCLOPRAMIDE HCL 10 MG/2ML VIAL ONE; +PROPOFOL IV EMULSION 10 MG/ML 20 ML VIAL ONE; +PROPOFOL IV EMULSION 10 MG/ML 50 ML VIAL IV ONE; +TYLENOL325 M2 PO
[2023-12-25] MEDS: LACTATED RINGER'S 1,000 ML ONE (08:42)
[2023-12-25 12:51] VITALS: TEMP 97.8
[2023-12-25 13:20] VITALS: BP 147/64; PULSE 68; RESP 16; O2SAT 99
== END | disposition home or self-care (01) ==
LOC: OR 08:09
PROVIDERS: ATTEND Internal Medicine Gastroenterology
DX: Z12.11 Encounter for screening for malignant neoplasm of colon (principal); K29.50 Unspecified chronic gastritis without bleeding; K31.A0 Gastric intestinal metaplasia, unspecified; K21.9 Gastro-esophageal reflux disease without esophagitis; K64.8 Other hemorrhoids; K44.9 Diaphragmatic hernia without obstruction or gangrene; K76.0 Fatty (change of) liver, not elsewhere classified; I10 Essential (primary) hypertension; E11.9 Type 2 diabetes mellitus without complications; I25.810 Atherosclerosis of coronary artery bypass graft(s) without angina pectoris; E78.5 Hyperlipidemia, unspecified; Z01.810 Encounter for preprocedural cardiovascular examination; Z01.812 Encounter for preprocedural laboratory examination; Z79.84 Long term (current) use of oral hypoglycemic drugs; Z79.4 Long term (current) use of insulin; Z79.899 Other long term (current) drug therapy; Z79.82 Long term (current) use of aspirin; Z68.41 Body mass index [BMI] 40.0-44.9, adult; Z95.1 Presence of aortocoronary bypass graft
CPT/HCPCS: 43239; G0121; 36415; 45378; 82948; 85025; 93005; J2001; J2765